=== PATIENT | female | born 1950 | race Hispanic/Latino ===

== ENCOUNTER 2018-05-04 07:18 | Day surgery (SDC) | payer OTHER ==
[2018-05-04] MEDS ORDERED: Ringers Lactate 1,000 ML IV ONE (07:40)
[2018-05-04] MEDS ORDERED: LIDOCAINE 2% INJ, MPF 2 ML 1 ML ONE (08:17)
[2018-05-04] MEDS ORDERED: PROPOFOL 200 MG/20 ML VIAL IV ONE ×2 (08:29)
--- NOTE | 2018-05-04 08:57 | ENDO RPT ---
[address], [address] COLONOSCOPY PROCEDURE REPORT EXAM DATE: 05/04/2018 PATIENT NAME: Estela Azul MR #: [id number] BIRTHDATE: 1950 ATTENDING: Fredis Meyer DR STATUS: outpatient CRYPTOGRAPHER: Dalila Camargo RN and [facility] INDICATIONS: The patient is a 67 yr old Female here for a colonoscopy due to colon cancer screening PROCEDURE PERFORMED: Colonoscopy with biopsy - cold polypectomy MEDICATIONS: Per Anesthesia. ESTIMATED BLOOD LOSS: None CONSENT: The patient understands the risks and benefits of the procedure and understands that these risks include, but are not limited to: sedation, allergic reaction, infection, perforation and/or bleeding. Alternative means of evaluation and treatment include, among others: physical exam, x-rays, and/or surgical intervention. The patient elects to proceed with this endoscopic procedure. DESCRIPTION OF PROCEDURE: During intra-op preparation period all mechanical medical equipment was checked for proper function. Hand hygiene and appropriate measures for infection prevention was taken. Procedure, possible complications, alternatives including, but not limited to possibility of bleeding, perforation, tear, infection, sepsis, need for surgery, need for blood transfusion, were explained to the patient. After the risks, benefits and alternatives of the procedure were thoroughly explained, Informed consent was verified, confirmed and timeout was successfully executed by the treatment team. The patient was placed in the left lateral position. A digital rectal exam was performed and revealed internal hemorrhoids. After appropriate level of anesthesia, the scope was passed. The EC-3890Li ([id number]) endoscope was introduced through the anus and advanced to the cecum, which was identified by both the appendix and ileocecal valve. The quality of the prep was poor. The instrument was then slowly withdrawn as the colon was fully examined. Scope withdrawal time was 10 minutes. COLON FINDINGS: A small smooth sessile polyp was found in the sigmoid colon. A polypectomy was performed with a cold snare. The resection was complete, the polyp tissue was completely retrieved and sent to histology. Small internal hemorrhoids were found. Retroflexed views revealed no abnormalities. The scope was then completely withdrawn from the patient and the procedure terminated. ADVERSE EVENTS: There were no complications. IMPRESSIONS: 1. Small sessile polyp was found in the sigmoid colon; polypectomy was performed with a cold snare 2. Small internal hemorrhoids RECOMMENDATIONS: 1. avoid NSAIDS for 2 weeks 2. await biopsy results 3. fiber rich diet 4. follow-up: office 2 week(s) RECALL: Return in 3 year(s) for Colonoscopy, pending biopsy results. Poor Prep, next colonoscopy use a [address] DR eSigned: Fredis Meyer DR 05/04/2018 8:57 AM cc: CPT CODES: ICD9 CODES: PATIENT NAME: Estela Azul MR#: [id number]
--- NOTE | 2018-05-04 08:58 | ENDO RPT ---
[address], [address] COLONOSCOPY PROCEDURE REPORT EXAM DATE: 05/04/2018 PATIENT NAME: Estela Azul MR #: [id number] BIRTHDATE: 1950 ATTENDING: Fredis Meyer DR STATUS: outpatient CLINICAL TRAINER: Dalila Camargo RN and [facility] INDICATIONS: The patient is a 67 yr old Female here for a colonoscopy due to colon cancer screening PROCEDURE PERFORMED: Colonoscopy with biopsy - cold polypectomy MEDICATIONS: Per Anesthesia. ESTIMATED BLOOD LOSS: None CONSENT: The patient understands the risks and benefits of the procedure and understands that these risks include, but are not limited to: sedation, allergic reaction, infection, perforation and/or bleeding. Alternative means of evaluation and treatment include, among others: physical exam, x-rays, and/or surgical intervention. The patient elects to proceed with this endoscopic procedure. DESCRIPTION OF PROCEDURE: During intra-op preparation period all mechanical medical equipment was checked for proper function. Hand hygiene and appropriate measures for infection prevention was taken. Procedure, possible complications, alternatives including, but not limited to possibility of bleeding, perforation, tear, infection, sepsis, need for surgery, need for blood transfusion, were explained to the patient. After the risks, benefits and alternatives of the procedure were thoroughly explained, Informed consent was verified, confirmed and timeout was successfully executed by the treatment team. The patient was placed in the left lateral position. A digital rectal exam was performed and revealed internal hemorrhoids. After appropriate level of anesthesia, the scope was passed. The EC-[id number] ([id number]) endoscope was introduced through the anus and advanced to the cecum, which was identified by both the appendix and ileocecal valve. The quality of the prep was poor. The instrument was then slowly withdrawn as the colon was fully examined. Scope withdrawal time was 10 minutes. COLON FINDINGS: A small smooth sessile polyp was found in the sigmoid colon. A polypectomy was performed with a cold snare. The resection was complete, the polyp tissue was completely retrieved and sent to histology. Small internal hemorrhoids were found. Retroflexed views revealed no abnormalities. The scope was then completely withdrawn from the patient and the procedure terminated. ADVERSE EVENTS: There were no complications. IMPRESSIONS: 1. Small sessile polyp was found in the sigmoid colon; polypectomy was performed with a cold snare 2. Small internal hemorrhoids RECOMMENDATIONS: 1. avoid NSAIDS for 2 weeks 2. await biopsy results 3. fiber rich diet 4. follow-up: office 2 week(s) RECALL: Return in 3 year(s) for Colonoscopy, pending biopsy results. Poor Prep, next colonoscopy use a [address] prep [address] DR eSigned: Fredis Meyer DR 05/04/2018 8:57 AM cc: CPT CODES: ICD9 CODES: PATIENT NAME: Estela Azul MR#: [id number]
== END 2018-05-04 09:40 | disposition home or self-care (01) ==
LOC: OR 07:18
PROVIDERS: ATTEND Surgery
PROC: 0DBN8ZX Excision of Sigmoid Colon, Via Natural or Artificial Opening Endoscopic, Diagnostic (ICD-10-PCS; principal; 2018-05-04 08:30)
DX: Z12.11 Encounter for screening for malignant neoplasm of colon (principal); D12.5 Benign neoplasm of sigmoid colon; K64.8 Other hemorrhoids; Z79.82 Long term (current) use of aspirin
CPT/HCPCS: 45380; 88305; J3490

== ENCOUNTER 2023-05-20 19:51 | Inpatient (IN) | payer OTHER ==
--- OUTSIDE RECORDS SUMMARY | 2023-05-20 20:01 | XMS REPORT | Continuity of Care Document ---
:1950 [facility] t Address [address] [place] [address] [place] [id number] Care Team Providers Name Role Phone Rosalina Georges Primary Care Physician BOBBY CORRAELS Attending Clinician Unavailable L_Bam Attending Clinician Unavailable Doctor Unassigned, [place] Attending Clinician Unavailable CURTIS MENDEZ Attending Clinician Unavailable Curtis Mendez MD Attending Clinician MICHAEL BARRIGA Attending Clinician Unavailable CHRZAYNAB_Herminia Attending Clinician Unavailable GLADYS Attending Clinician Unavailable Nidia Allison Attending Clinician [phone] REN Attending Clinician Unavailable Michael Tavares Attending Clinician [phone] Nick Robison Attending Clinician Felisa Sampson Attending Clinician [phone] NICK BOYD Attending Clinician Unavailable Bobby Corrales MD Attending Clinician Only, Adc Test Attending Clinician Unavailable Pob, [facility] Main Attending Clinician Unavailable BOBBY CORRALES Admitting Clinician Unavailable L_Bam Admitting Clinician Unavailable CHRETIEN_F Admitting Clinician Unavailable GLADYS Admitting Clinician Unavailable REN Admitting Clinician Unavailable Bobby Corrales MD Admitting Clinician Payers Payer Name Policy Type Policy Number Effective Date Expiration Date S [facility] MEDICARE PART A \\T\\ [id number] 2017 B 00:00:00 [employer]ESH [id number] 2019 00:00:00 [employer]ET[employer] (MEDICARE [id number] 2022 REPLACEMENT PPO) 00:00:00 [employer] [place] [id number] 2022 2022 (MEDICARE 00:00:00 00:00:00 REPLACEMENT/ADVANTA GE - HMO) [place] B-[place]: [id number] 2017 [employer] 00:00:00 [employer]IGNESH [id number] 2021 (MEDICARE 00:00:00 SUPPLEMENT) [employer] (MEDICARE [id number] REPLACEMENT/ADVANTA GE - PPO) MEDIC[place] A-[place]: [id number] 2017 [employer] - 00:00:00 [facility] MEDICARE A-[place]: [id number] 2017 [employer] 00:00:00 M[employer] OF JIGNESH [id number] 2019 00:00:00 Problems Condition Condition Condition Status Onset Resolution Last Treating Co mments Source Name Details Category Date Date Treatment Clinician Date Osteopenia Osteopenia Problem Active [facility] Dysuria Dysuria Problem Active [place] 3-13 [facility] 00:[facility]: ty [facility] Increased Increased Problem Active [place] frequency Frequency 3-13 Comm uni of of 00:00: ty urination Urination 00 [facility] Acute Acute Problem Active 2021-09 [place] sinusitis Sinusitis 1-15 Comm uni 00:00: ty [facility] Headache Headache Problem Active 2021-09 [place] 1-15 [facility] 00:[facility]: ty [facility] Pain in Pain in Problem Active 2021-09 [place] face Face 1-15 Communi 00:00: ty [facility] Otalgia of Otalgia of Problem Active 2021-09 [facility] left ear Left Ear 1-15 Commun i 00:00: ty [facility] Non-suppur Non-suppur Problem Active 2021-09 [facility] ative ative 0-05 Communi otitis Otitis 00:00: ty media Media 00 [facility] Allergic Allergic Problem Active 2021-09 [place] rhinitis Rhinitis 0-05 Commun i 00:00: ty 00 [facility] Chronic Chronic Problem Active 2021-09 [place] low back Low Back 0-05 Commun i pain Pain 00:00: ty 00 [facility] Low back Low Back Problem Active 2021-09 [place] pain Pain 0-05 Communi 00:00: ty 00 [facility] Pain in Pain in Problem Active 2021-09 [place] right hip Right Hip 0-05 Comm uni joint Joint 00:00: ty 00 [facility] Otitis Otitis Problem Active 2021-09 [place] externa of Externa of 0-05 Co mmuni right ear Right Ear 00:00: ty 00 [facility] Streptococ Streptococ Problem Active [facility] billy sore billy Sore 06-04 Commun i throat Throat 00:00: ty 00 [facility] History of History of Problem Active [facility] [place] SARS-CoV-2 SARS-CoV-2 06-04 Co mmuni 00:00: ty 00 [facility] Mixed Mixed Problem Active 2018-09 [place] hyperlipid Hyperlipid 1-13 Co mmuni emia emia 00:00: ty 00 [facility] Arthralgia Arthralgia Problem Active [facility] of the of the -22 Communi upper arm Upper Arm 00:00: ty 00 [facility] Pain of Pain of Problem Active [place] right Right 2-22 Communi shoulder Shoulder 00:00: ty joint Joint 00 [facility] STROKE STROKE Diagnosis Active 2012-10-07 Me moria Active 09-13 13:28:00 l 09/13/2012 00:00: Nikunj bee [address] CVA CVA Diagnosis Active 2012-10-07 Mem oria Active 13:28:00 l [facility] No known No known Disease Unive rs active active ity of problems problems [facility] Allergies, Adverse Reactions, Alerts Allergy Allergy Status Severity Reaction(s) Onset Inactive Treating Comm ents Source Name Type Date Date Clinician NO KNOWN Drug Active Univers ALLERGIE Class ity of S [facility] Social History Social Habit Start Date Stop Date Quantity Comments Source [facility] Branch Tobacco use and 2020-06-03 2020-06-03 Smokeless tobacco Un iversity of exposure 00:00:00 00:00:00 non-user [facility] Sex Assigned At [birth year] Universit y of 00:00:00 00:00:00 [facility] Smoking Status Start Date Stop Date Source Unknown if ever smoked [facility] Never smoked tobacco [facility] Medications Ordered Filled Start Stop Current Ordering Indication Dosage Frequency Signature Comments Components Source Medication Medication Date Date Medication? Clinician (SIG) Name Name methylPREDN 2020- No [id number] 80mg U brendan ISolone 02-19 ity of acetate 15:20: 15:36 [place] (DEPO-MEDRO 00 :00 Medical L) 80 mg/mL Branch 80 mg, lidocaine 1% (PF) (XYLOCAINE) 6 mL, bupivacaine (preserv free) 0.5% (SENSORCAIN E MPF) 0.5 % (5 mg/mL) 3 mL 10 mL injection methylPREDN 0 2020- No [id number] 80mg Intra-deandra Univers ISolone 02-19 cular, ity of acetate 15:20: 15:36 ONCE, 1 [place] (DEPO-MEDRO 00 :00 dose, Wed Med ical L) 80 mg/mL 02/19/21 at Br anch 80 mg, 1030, 10 lidocaine mL 1% (PF) (XYLOCAINE) 6 mL, bupivacaine (preserv free) 0.5% (SENSORCAIN E MPF) 0.5 % (5 mg/mL) 3 mL 10 mL injection methylPREDN 0 2020- No [id number] 80mg U nivers ISolone 02-19 ity of acetate 15:20: 15:36 [place] (DEPO-MEDRO 00 :00 Medical L) 80 mg/mL Branch 80 mg, lidocaine 1% (PF) (XYLOCAINE) 6 mL, bupivacaine (preserv free) 0.5% (SENSORCAIN E MPF) 0.5 % (5 mg/mL) 3 mL 10 mL injection methylPREDN 2020-0 202- No [id number] 80mg Intra-deandra Univers ISolone 02-19 cular, ity of acetate 15:20: 15:36 ONCE, 1 [place] (DEPO-MEDRO 00 :00 dose, Wed Med ical L) 80 mg/mL 02/19/21 at Br anch 80 mg, 1030, 10 lidocaine mL 1% (PF) (XYLOCAINE) 6 mL, bupivacaine (preserv free) 0.5% (SENSORCAIN E MPF) 0.5 % (5 mg/mL) 3 mL 10 mL injection methylPREDN 2021-0 2020- No [id number] 80mg Univers [facility] 12-25 ity of acetate 20:30: 21:20 [place] (DEPO-MEDRO 00 :00 Medical L) 80 mg/mL Branch 80 mg, lidocaine 1% (PF) (XYLOCAINE) 6 mL, bupivacaine (preserv free) 0.5% (SENSORCAIN E MPF) 0.5 % (5 mg/mL) 3 mL 10 mL injection methylPREDN 1-0 2020- No [id number] 80mg [facility] 12-25 91 cular, ity of acetate 20:30: 21:20 ONCE, 1 [place] (DEPO-MEDRO 00 :00 dose, Wed Med ical L) 80 mg/mL 12/25/20 at Br anch 80 mg, 1545, 10 lidocaine mL 1% (PF) (XYLOCAINE) 6 mL, bupivacaine (preserv free) 0.5% (SENSORCAIN E MPF) 0.5 % (5 mg/mL) 3 mL 10 mL injection methylPREDN 1-0 2020- No [id number] 80mg [facility] 12-25 ity of acetate 20:30: 21:20 [place] (DEPO-MEDRO 00 :00 Medical L) 80 mg/mL Branch 80 mg, lidocaine 1% (PF) (XYLOCAINE) 6 mL, bupivacaine (preserv free) 0.5% (SENSORCAIN E MPF) 0.5 % (5 mg/mL) 3 mL 10 mL injection methylPREDN 2021-0 2020- No [id number] 80mg [facility] 9100 cular, ity of acetate 20:30: 21:20 ONCE, 1 [place] (DEPO-MEDRO 00 :00 dose, Wed Med ical L) 80 mg/mL 12/25/20 at Br anch 80 mg, 1545, 10 lidocaine mL 1% (PF) (XYLOCAINE) 6 mL, bupivacaine (preserv free) 0.5% (SENSORCAIN E MPF) 0.5 % (5 mg/mL) 3 mL 10 mL injection atorvastati Yes 10mg Take 10 mg Univers n 10 mg 4-21 by mouth ity of tablet 19:23: at [place] [address] bedtime. Medical Branch atorvastati Yes 10mg Take 10 mg Univers n 10 mg 4-21 by mouth ity of tablet 19:23: at [place] [address] bedtime. Medical Branch atorvastati Yes 10mg Take 10 mg Univers n 10 mg 4-21 by mouth ity of tablet 19:23: at [place] [address] bedtime. Medical Branch atorvastati Yes 10mg Take 10 mg Univers n 10 mg 4-21 by mouth ity of tablet 19:23: at [place] [address] bedtime. Medical Branch atorvastati Yes 10mg Take 10 mg Univers n 10 mg 4-21 by mouth ity of tablet 19:23: at [place] [address] bedtime. Medical Branch atorvastati Yes 10mg Take 10 mg Univers n 10 mg 4-21 by mouth ity of tablet 19:23: at [place] [address] bedtime. Medical Branch atorvastati Yes 10mg Take 10 mg Univers n 10 mg 4-21 by mouth ity of tablet 19:23: at [place] [address] bedtime. Medical Branch atorvastati Yes 10mg Take 10 mg Univers n 10 mg 4-21 by mouth ity of tablet 19:23: at [place] [address] bedtime. Medical Branch atorvastati Yes 10mg Take 10 mg Univers n 10 mg 4-21 by mouth ity of tablet 19:23: at [place] [address] bedtime. Medical Branch atorvastati Yes 10mg Take 10 mg Univers n 10 mg 4-21 by mouth ity of tablet 19:23: at [place] [address] bedtime. Medical Branch atorvastati Yes 10mg Take 10 mg Univers n 10 mg 4-21 by mouth ity of tablet 19:23: at [place] [address] bedtime. Medical Branch atorvastati 0 Yes 10mg Take 10 mg Univers n 10 mg 4-21 by mouth ity of tablet 19:23: at [place] [address] bedtime. Medical Branch atorvastati 0 Yes 10mg Take 10 mg Univers n 10 mg 4-21 by mouth ity of tablet 19:23: at [place] [address] bedtime. Medical Branch atorvastati 0 Yes 10mg Take 10 mg Univers n 10 mg 4-21 by mouth ity of tablet 19:23: at [place] [address] bedtime. Medical Branch atorvastati Yes 10mg Take 10 mg Univers n 10 mg 4-21 by mouth ity of tablet 14:23: at [place] [address] bedtime. Medical Branch atorvastati Yes 10mg Take 10 mg Univers n 10 mg 4-21 by mouth ity of tablet 14:23: at [place] [address] bedtime. Medical Branch atorvastati Yes 10mg Take 10 mg Univers n 10 mg 4-21 by mouth ity of tablet 14:23: at [place] [address] bedtime. Medical Branch atorvastati Yes 10mg Take 10 mg Univers n 10 mg 4-21 by mouth ity of tablet 14:23: at [place] [address] bedtime. Medical Branch atorvastati Yes 10mg Take 10 mg Univers n 10 mg 4-21 by mouth ity of tablet 14:23: at [place] [address] bedtime. Medical Branch naproxen 0 Yes [id number] 500mg Take 1 U nivers (NAPROSYN) 4-20 tablet by ity of 500 mg 00:00: mouth 2 [place] tablet 00 (two) Medical times Branch daily with meals as needed for Pain (scale 4-6). tiZANidine 0 Yes [id number] 2mg Take 1 Univers 2 mg tablet 4-20 tablet by ity of 00:00: mouth at [place] [address] bedtime as Medical needed for Branch Pain (scale 4-6). naproxen 0 Yes [id number] 500mg Take 1 U nivers (NAPROSYN) 4-20 tablet by ity of 500 mg 00:00: mouth 2 [place] tablet 00 (two) Medical times Branch daily with meals as needed for Pain (scale 4-6). tiZANidine 2021-0 Yes [id number] 2mg Take 1 Univers 2 mg tablet 4-20 tablet by ity of 00:00: mouth at [place] 00 bedtime as Medical needed for Branch Pain (scale 4-6). naproxen 2021-0 Yes [id number] 500mg Take 1 U nivers (NAPROSYN) 4-20 tablet by ity of 500 mg 00:00: mouth 2 [place] tablet 00 (two) Medical times Branch daily with meals as needed for Pain (scale 4-6). tiZANidine 2020-0 Yes [id number] 2mg Take 1 Univers 2 mg tablet 4-20 tablet by ity of 00:00: mouth at [place] 00 bedtime as Medical needed for Branch Pain (scale 4-6). naproxen 2020-0 Yes [id number] 500mg Take 1 U nivers (NAPROSYN) 4-20 tablet by ity of 500 mg 00:00: mouth 2 [place] tablet 00 (two) Medical times Branch daily with meals as needed for Pain (scale 4-6). tiZANidine 2020-0 Yes [id number] 2mg Take 1 Univers 2 mg tablet 4-20 tablet by ity of 00:00: mouth at [place] 00 bedtime as Medical needed for Branch Pain (scale 4-6). naproxen 2020-0 Yes [id number] 500mg Take 1 U nivers (NAPROSYN) 4-20 tablet by ity of 500 mg 00:00: mouth 2 [place] tablet 00 (two) Medical times Branch daily with meals as needed for Pain (scale 4-6). tiZANidine 2020-0 Yes [id number] 2mg Take 1 Univers 2 mg tablet 4-20 tablet by ity of 00:00: mouth at [place] 00 bedtime as Medical needed for Branch Pain (scale 4-6). naproxen 2021-0 Yes [id number] 500mg Take 1 U nivers (NAPROSYN) 4-20 tablet by ity of 500 mg 00:00: mouth 2 [place] tablet 00 (two) Medical times Branch daily with meals as needed for Pain (scale 4-6). tiZANidine 2021-0 Yes [id number] 2mg Take 1 Univers 2 mg tablet 4-20 tablet by ity of 00:00: mouth at [place] 00 bedtime as Medical needed for Branch Pain (scale 4-6). naproxen 2020-0 Yes [id number] 500mg Take 1 U nivers (NAPROSYN) 4-20 tablet by ity of 500 mg 00:00: mouth 2 [place] tablet 00 (two) Medical times Branch daily with meals as needed for Pain (scale 4-6). tiZANidine 2020-0 Yes [id number] 2mg Take 1 Univers 2 mg tablet 4-20 tablet by ity of 00:00: mouth at [place] 00 bedtime as Medical needed for Branch Pain (scale 4-6). naproxen 2020-0 Yes [id number] 500mg Take 1 U nivers (NAPROSYN) 4-20 tablet by ity of 500 mg 00:00: mouth 2 [place] tablet 00 (two) Medical times Branch daily with meals as needed for Pain (scale 4-6). tiZANidine 2020-0 Yes [id number] 2mg Take 1 Univers 2 mg tablet 4-20 tablet by ity of 00:00: mouth at [place] 00 bedtime as Medical needed for Branch Pain (scale 4-6). naproxen 2020-0 Yes [id number] 500mg Take 1 U nivers (NAPROSYN) 4-20 tablet by ity of 500 mg 00:00: mouth 2 [place] tablet 00 (two) Medical times Branch daily with meals as needed for Pain (scale 4-6). tiZANidine 2020-0 Yes [id number] 2mg Take 1 Univers 2 mg tablet 4-20 tablet by ity of 00:00: mouth at [place] 00 bedtime as Medical needed for Branch Pain (scale 4-6). naproxen 2020-0 Yes [id number] 500mg Take 1 U nivers (NAPROSYN) 4-20 tablet by ity of 500 mg 00:00: mouth 2 [place] tablet 00 (two) Medical times Branch daily with meals as needed for Pain (scale 4-6). tiZANidine 2020-0 Yes [id number] 2mg Take 1 Univers 2 mg tablet 4-20 tablet by ity of 00:00: mouth at [place] 00 bedtime as Medical needed for Branch Pain (scale 4-6). naproxen 2020-0 Yes [id number] 500mg Take 1 U nivers (NAPROSYN) 4-20 tablet by ity of 500 mg 00:00: mouth 2 [place] tablet 00 (two) Medical times Branch daily with meals as needed for Pain (scale 4-6). tiZANidine 2020-0 Yes [id number] 2mg Take 1 Univers 2 mg tablet 4-20 tablet by ity of 00:00: mouth at [place] 00 bedtime as Medical needed for Branch Pain (scale 4-6). naproxen 2020-0 Yes [id number] 500mg Take 1 U nivers (NAPROSYN) 4-20 tablet by ity of 500 mg 00:00: mouth 2 [place] tablet 00 (two) Medical times Branch daily with meals as needed for Pain (scale 4-6). tiZANidine 2020-0 Yes [id number] 2mg Take 1 Univers 2 mg tablet 4-20 tablet by ity of 00:00: mouth at [place] 00 bedtime as Medical needed for Branch Pain (scale 4-6). naproxen 2020-0 Yes [id number] 500mg Take 1 U nivers (NAPROSYN) 4-20 tablet by ity of 500 mg 00:00: mouth 2 [place] tablet 00 (two) Medical times Branch daily with meals as needed for Pain (scale 4-6). tiZANidine 2020-0 Yes [id number] 2mg Take 1 Univers 2 mg tablet 4-20 tablet by ity of 00:00: mouth at [place] 00 bedtime as Medical needed for Branch Pain (scale 4-6). naproxen 2020-0 Yes [id number] 500mg Take 1 U nivers (NAPROSYN) 4-20 tablet by ity of 500 mg 00:00: mouth 2 [place] tablet 00 (two) Medical times Branch daily with meals as needed for Pain (scale 4-6). tiZANidine 2020-0 Yes [id number] 2mg Take 1 Univers 2 mg tablet 4-20 tablet by ity of 00:00: mouth at [place] 00 bedtime as Medical needed for Branch Pain (scale 4-6). naproxen 2020-0 Yes [id number] 500mg Take 1 U nivers (NAPROSYN) 4-20 tablet by ity of 500 mg 00:00: mouth 2 [place] tablet 00 (two) Medical times Branch daily with meals as needed for Pain (scale 4-6). tiZANidine 2020-0 Yes [id number] 2mg Take 1 Univers 2 mg tablet 4-20 tablet by ity of 00:00: mouth at [place] 00 bedtime as Medical needed for Branch Pain (scale 4-6). naproxen 202-0 Yes [id number] 500mg Take 1 U nivers (NAPROSYN) 4-20 tablet by ity of 500 mg 00:00: mouth 2 [place] tablet 00 (two) Medical times Branch daily with meals as needed for Pain (scale 4-6). tiZANidine 2020-0 Yes [id number] 2mg Take 1 Univers 2 mg tablet 4-20 tablet by ity of 00:00: mouth at [place] 00 bedtime as Medical needed for Branch Pain (scale 4-6). naproxen 2020-0 Yes [id number] 500mg Take 1 U nivers (NAPROSYN) 4-20 tablet by ity of 500 mg 00:00: mouth 2 [place] tablet 00 (two) Medical times Branch daily with meals as needed for Pain (scale 4-6). tiZANidine 2020-0 Yes [id number] 2mg Take 1 Univers 2 mg tablet 4-20 tablet by ity of 00:00: mouth at [place] 00 bedtime as Medical needed for Branch Pain (scale 4-6). naproxen 2020-0 Yes [id number] 500mg Take 1 U nivers (NAPROSYN) 4-20 tablet by ity of 500 mg 00:00: mouth 2 [place] tablet 00 (two) Medical times Branch daily with meals as needed for Pain (scale 4-6). tiZANidine 2020-0 Yes [id number] 2mg Take 1 Univers 2 mg tablet 4-20 tablet by ity of 00:00: mouth at [place] 00 bedtime as Medical needed for Branch Pain (scale 4-6). naproxen 2021-0 Yes [id number] 500mg Take 1 U nivers (NAPROSYN) 4-20 tablet by ity of 500 mg 00:00: mouth 2 [place] tablet 00 (two) Medical times Branch daily with meals as needed for Pain (scale 4-6). tiZANidine 2020-0 Yes [id number] 2mg Take 1 Univers 2 mg tablet 4-20 tablet by ity of 00:00: mouth at [place] 00 bedtime as Medical needed for Branch Pain (scale 4-6). atorvastati 2020-0 Yes 10mg Take 10 mg Univers n 10 mg 9-30 by mouth ity of tablet 20:27: at [place] 44 bedtime. Medical Branch atorvastati 2020-0 Yes 10mg Take 10 mg Univers n 10 mg 9-30 by mouth ity of tablet 20:27: at [place] 44 bedtime. Medical Branch lactated 2020-0 Yes 1000mL at 42 Univer s ringers IV 9-30 mL/hr, ity of infusion 20:00: 1,000 mL, [place] 1,000 [place] 00 IV Medical Infusion, Branch CONTINUOUS , Starting Wed06/05/20 at 1500, Until Discontinu ed, Routine, PACU ondansetron 2020-0 Yes 4mg 4 mg, Slow Univers (ZOFRAN 9-30 IV Push, ity of (PF)) 19:48: PRN, 1 [place] injection 4 25 dose, Medical mg Starting Branch Wed06/05/20 at 1448, Until Discontinu ed, Routine, Nausea and Vomiting (N/V), PACU FENTanyl PF 2020-0 Yes 25ug 25 mcg, Uni vers (SUBLIMAZE 9-30 Slow IV ity of (PF)) 19:48: Push, [place] injection 25 Q5MIN PRN, Medi billy 25 mcg 4 doses, Branch Starting Wed06/05/20 at 1448, Until Discontinu ed, Routine, Pain (scale 4-6), PACU trypan blue 2020-0 Yes PRN, Univer s (VISION -30 Starting ity of BLUE) 0.06 19:36: Wed [place] % syringe 00 06/05/20 at Medi billy 1436, Branch Until Discontinu ed, Routine, Intra-op water for 2020-0 Yes PRN, Univers irrigation -30 Starting ity o f irrigation 19:36: Wed [place] solution 06/05/20 at Medic al 1436, Branch Until Discontinu ed, Routine, Intra-op sodium 2020-0 Yes PRN, Univers chloride -30 Starting ity of (NS) 19:35: Wed [place] injection 00 06/05/20 at Medi billy 1435, Branch Until Discontinu ed, Routine, Intra-op neomycin-po 2020-0 Yes PRN, Univer s lymyxin-dex 9-30 Starting ity of amethasone 19:35: Wed (MAXITROL) 06/05/20 at [facility] ical 3.5 1435, Branch mg/g-10,000 Until unit/g-0.1 Discontinu % ed, ophthalmic Routine, ointment Intra-op Hyaluronida 2020-0 Yes PRN, Univer s se, Human 06-05 Starting ity of Recomb. 19:35: Wed (HYLENEX) 06/05/20 at [facility] billy injection 1435, Branch Until Discontinu ed, Routine, Intra-op gentamicin 2020-0 Yes PRN, Univers injection 06-05 Starting ity of 19:33: Wed06/05/20 at [facility] 1433, Branch Until Discontinu ed, GLADYS, Intra-op eye block 2019-0 Yes PRN, Univers syringe 11 06-05 Starting ity o f mL 19:32: Wed06/05/20 at [facility] 1432, Branch Until Discontinu ed, Intra-op EPINEPHrine 2020-0 Yes PRN, Univer s 1:1,000 (1 06-05 Starting ity o f mg/mL) 19:32: Wed (ADRENALIN) 06/05/20 at [place] dical injection 1432, Branch Until Discontinu ed, Routine, Intra-op DUOVISC 2020-0 Yes PRN, Univers (DUOVISC 06-05 Starting ity of VISCO 19:32: Wed ELASTIC) 3 06/05/20 at [facility] ical %-4 %(0.5 1432, Branch mL) 1 % Until (0.55 mL) Discontinu intraocular ed, injection Routine, Intra-op dexamethaso 2020-0 Yes PRN, Univer s ne 06-05 Starting ity of (DECADRON 19:32: Wed PHOSPHATE) 06/05/20 at [facility] ical injection 1432, Branch Until Discontinu ed, Routine, Intra-op ceFAZolin 2020-0 Yes PRN, Univers (ANCEF) 06-05 Starting ity of injection 19:26: Wed [place] 06/05/20 at [facility] 1426, Branch Until Discontinu ed, GLADYS, Intra-op carbachoL 2020-0 Yes PRN, Univers (MIOSTAT) 06-05 Starting ity of 0.01 % 19:26: Wed [place] intraocular 00 06/05/20 at [facility] dical injection 1426, Branch Until Discontinu ed, Routine, Intra-op balanced 2019-0 Yes PRN, Univers salt irrig 06-05 Starting ity o f soln comb1 19:26: [facility] (BSS PLUS) 00 06/05/20 at [facility] ical ophthalmic 1426, Center solution Until 500 mL bag Discontinu ed, Routine, Intra-op mydriatic 2020- No .5mL 0.5 mL, Univ ers #5 06-05 Right Eye, ity of ophthalmic 18:00: 17:34 ONCE, 1 [place] as solution 00 :00 dose, [facility] Medica l 0.5 mL 06/05/20 at Center syringe 1300, Routine, DSU Pre-op atorvastati Yes 10mg Take 10 mg Univers n 10 mg 06-03 by mouth ity of tablet 13:42: at [place] 58 bedtime. [facility] Fish Oil No Jie 1,000 mg, Wy moria 1-10 Saqui 1 cap, l 15:00: Gaming Route: PO, Olivia nn Drug form: CAP, Daily, Dosing Weight 58.636, kg, Start date: 09/15/12 9:00:00, Duration: 30 day, Stop date: 10/14/12 9:00:00 aspirin No Jie 81 mg, 1 Yovany radha 1-10 Saqui tab, l 15:00: Gaming Route: PO, Olivia nn Drug form: [place], Daily, Dosing Weight 58.636, kg, Start date: 09/15/12 9:00:00, Duration: 30 day, Stop date: 10/14/12 9:00:00 Fish Oil No Jie 1,000 mg, Me moria 1-10 Saqui 1 cap, l 15:00: Gaming Route: PO, Olivia nn Drug form: CAP, Daily, Dosing Weight 58.636, kg, Start date: 09/15/12 9:00:00, Duration: 30 day, Stop date: 10/14/12 9:00:00 aspirin No Jie 81 mg, 1 Yovany radha 1-10 Sa[place] tab, l 15:00: Gaming Route: PO, Olivia nn 00 Drug form: CHE[place], Daily, Dosing Weight 58.636, kg, Start date: 09/15/12 9:00:00, Duration: 30 day, Stop date: 10/14/12 9:00:00 calcium-vit 2012-0 No Jie 2 tab, Me moria ingram D 250 09-14 Saqui Route: PO, l mg-125 23:00: Gaming Drug Form: Her dow units oral 00 TAB, tablet Dosing Weight 58.636, kg, BID, Start date: 09/14/12 17:00:00, Duration: 30 day, Stop date: 10/14/12 9:00:00 calcium-vit 2012-0 No Jie 2 tab, Me moria ingram D 250 09-14 Saqui Route: PO, l mg-125 23:00: Gaming Drug Form: Her dow units oral 00 TAB, tablet Dosing Weight 58.636, kg, BID, Start date: 09/14/12 17:00:00, Duration: 30 day, Stop date: 10/14/12 9:00:00 acyclovir 0 No [place] 400 mg, 1 Memoria 09-14 Masters tab, l 20:00: [place] Route: PO, Olivia nn 00 Drug form: TAB, 5X Day, Dosing Weight 58.636, kg, Start date: 09/14/12 14:00:00, Duration: 7 day, Stop date: 09/21/12 10:00:00 acyclovir 0 No [place] 400 mg, 1 Memoria 09-14 Masters tab, l 20:00: [place] Route: PO, Olivia nn 00 Drug form: TAB, 5X Day, Dosing Weight 58.636, kg, Start date: 09/14/12 14:00:00, Duration: 7 day, Stop date: 09/21/12 10:00:00 acyclovir 0 No Jie 200 mg, Mem oria 09-14 Saqui Route: PO, l 19:00: Gaming TID, [employer] 00 Dosing Weight 58.636, kg, Start date: 09/14/12 13:00:00, Duration: 30 day, Stop date: 10/14/12 9:00:00 heparin 2012-0 No Santos 5,000 Memori a 09-14 [facility] unit, 1 l 19:00: Chah[place] mL, Route: [place] nn 00 SUB-Q, Drug form: INJ, Q8H-05, Dosing Weight 58.636, kg, Start date: 09/14/12 13:00:00, Duration: 30 day, Stop date: 10/14/12 5:00:00 cephalexin 0 No Jie 500 mg, 2 Memoria 09-14 Saqui cap, l 19:00: Gaming Route: PO, [place] nn 00 Drug form: CAP, QID, Dosing Weight 58.636, kg, Start date: 09/14/12 13:00:00, Duration: 30 day, Stop date: 10/14/12 9:00:00 heparin 2012-0 No Santos 5,000 [facility] a - [facility] unit, 1 l 19:00: Chahil mL, Route: Olivia nn 00 SUB-Q, Drug form: INJ, Q8H-05, Dosing Weight 58.636, kg, Start date: 09/14/12 13:00:00, Duration: 30 day, Stop date: 10/14/12 5:00:00 cephalexin 0 No Jie 500 mg, 2 Memoria 09-14 Saqui cap, l 19:00: Gaming Route: PO, Olivia nn 00 Drug form: CAP, QID, Dosing Weight 58.636, kg, Start date: 09/14/12 13:00:00, Duration: 30 day, Stop date: 10/14/12 9:00:00 acyclovir 0 No Jie 200 mg, Mem oria 09-14 Saqui Route: PO, l 19:00: Gaming TID, Neftaly 00 Dosing Weight 58.636, kg, Start date: 09/14/12 13:00:00, Duration: 30 day, Stop date: 10/14/12 9:00:00 predniSONE 2012-0 No Jie 60 mg, 3 M emoria 09-14 Saqui tab, l 18:00: Gaming Route: PO, Olivia nn 00 Drug form: TAB, Daily, Dosing Weight 58.636, kg, Start date: 09/14/12 12:00:00, Duration: 30 day, Stop date: 10/14/12 9:00:00 predniSONE 2012- No Jie 60 mg, 3 M emoria 09-14 Saqui tab, l 18:00: Gaming Route: PO, Olivia nn 00 Drug form: TAB, Daily, Dosing Weight 58.636, kg, Start date: 09/14/12 12:00:00, Duration: 30 day, Stop date: 10/14/12 9:00:00 predniSONE 2012- Yes Jie 60 mg, PO, Memoria 20 mg oral 09-14 Saqui Daily, 15 l tablet 17:32: Gaming tab, Neftaly 29 Substituti on Allowed, TAB predniSONE Yes Jie 60 mg, PO, Memoria 20 mg oral 09-14 Saqui Daily, 15 l tablet 17:32: Gaming tab, [employer] 29 Substituti on Allowed, TAB acyclovir Yes Jie 400 mg, Mem oria 400 mg oral 09-14 Saqui PO, 5X l tablet 17:31: Gaming Day, 35 Nikunj n 33 tab, Substituti on Allowed, TAB acyclovir Yes Jie 400 mg, Mem oria 400 mg oral 09-14 Saqui PO, 5X l tablet 17:31: Gaming Day, 35 Nikunj n 33 tab, Substituti on Allowed, TAB Artificial No Jie 1 drp, Mem oria Tears 09-14 Saqui Route: l 16:17: Gaming Each [employer] 00 Affected Eye, QID, Drug form: SOLN, PRN Dry Eyes, Start date: 09/14/12 10:17:00, Duration: 30 day, Stop date: 10/14/12 10:16:00 Artificial 2012-0 No Jie 1 drp, Mem oria Tears 09-14 Saqui Route: l 16:17: Gaming Each [employer] 00 Affected Eye, QID, Drug form: SOLN, PRN Dry Eyes, Start date: 09/14/12 10:17:00, Duration: 30 day, Stop date: 10/14/12 10:16:00 cephalexin 2012- Yes Jie 500 mg, 1 Memoria monohydrate 09-14 Saqui cap, PO, l 500 mg oral 07:55: Gaming QID, 20 H ermann capsule 00 cap, Substituti on Allowed cephalexin Yes Jie 500 mg, 1 Memoria monohydrate 09-14 Saqui cap, PO, l 500 mg oral 07:55: Gaming QID, 20 H ermann capsule 00 cap, Substituti on Allowed calcium-vit Yes Jie See Yovany radha ingram D 500 09-14 Saqui Instructio l mg-125 07:54: Gaming ns, 1 tab Herm darling units oral 06 daily, tablet Substituti on Allowed, Maintenanc e, TAB1 tab daily calcium-vit Yes Jie See Yovany radha ingram D 500 09-14 Saqui Instructio l mg-125 07:54: Gaming ns, 1 tab Herm darling units oral 06 daily, tablet Substituti on Allowed, Maintenanc e, TAB1 tab daily Aspirin Low Yes Jie PO, Daily, Memoria Dose 81 mg 09-14 Saqui with food, l oral tablet 07:50: Gaming Substituti Neftaly 54 on Allowedwit h food Aspirin Low Yes Jie PO, Daily, Memoria Dose 81 mg 09-14 Saqui with food, l oral tablet 07:50: Gaming Substituti Neftaly 54 on Allowedwit h food omega-3 Yes Jie 1,000 mg, Mem oria polyunsatur 09-14 Saqui 1 cap, l ated fatty 07:50: Gaming Daily, Her dow acids 1000 15 Substituti mg oral on Allowed capsule omega-3 Yes Jie 1,000 mg, Mem oria polyunsatur 09-14 Saqui 1 cap, l ated fatty 07:50: Gaming Daily, Her dow acids 1000 15 Substituti mg oral on Allowed capsule [place] No Lindy Castrejon 1 tab, Yovany radha 7.5/325 09-14 Kala Route: PO, l oral tablet 07:12: Drug Form: Neftaly 00 TAB, Dosing Weight 58.636, kg, ONCE, NOW, Start date: 09/14/12 1:12:00, Stop date: 09/14/12 1:12:00 [place] No Lindy Castrejon 1 tab, Yovany radha 7.5/325 09-14 Kala Route: PO, l oral tablet 07:12: Drug Form: Neftaly 00 TAB, Dosing Weight 58.636, kg, ONCE, NOW, Start date: 09/14/12 1:12:00, Stop date: 09/14/12 1:12:00 Saline 2012-0 No Gallagher 5 ml, Memoria Flush 0.9% 09-14 William Route: l 03:00: Abrams IVP, Drug Herm darling 00 Form: INJ, Dosing Weight 58.182, kg, Q12H, Start date: 09/13/12 21:00:00, Duration: 30 day, Stop date: 10/13/12 9:00:00 Saline 2012-0 No Gallagher 5 ml, Memoria Flush 0.9% 09-14 William Route: l 03:00: Abrams IVP, Drug Herm darling 00 Form: INJ, Dosing Weight 58.182, kg, Q12H, Start date: 09/13/12 21:00:00, Duration: 30 day, Stop date: 10/13/12 9:00:00 morphine 2012-0 No Jina 2 mg, 1 Me moria Sulfate 09-14 Fabiana mL, Route: l 00:39: Brown IVP, Drug [employer] 00 form: INJ, ONCE, Dosing Weight 58.182, kg, Start date: 09/13/12 18:39:00, Stop date: 09/13/12 18:39:00 morphine 2012-0 No Jina 2 mg, 1 Me moria Sulfate - Fabiana mL, Route: l 00:39: Brown IVP, Drug Neftaly 00 form: INJ, ONCE, Dosing Weight 58.182, kg, Start date: 09/13/12 18:39:00, Stop date: 09/13/12 18:39:00 Omnipaque 2013-0 No Jina 125 mL, M emoria 350mg/ml 09-14 Fabiana Route: l 00:37: Brown IVP, Drug [employer] 00 Form: SOLN, Dosing Weight 58.182, kg, ONCALL, STAT, Start date: 09/13/12 18:37:00, Duration: 1 doses or times, Dose = 2.2ml/kg, Max dose = 150ml -- "To be infused by Radiology Staff ONLY"Dose = 2.2ml/kg, Max dose = 150ml -- "To be infused by Radiology Staff ONLY" Omnipaque 2012-0 No Jina 125 mL, M emoria 350mg/ml 09-14 Fabiana Route: l 00:37: Brown IVP, Drug [employer] 00 Form: SOLN, Dosing Weight 58.182, kg, ONCALL, STAT, Start date: 09/13/12 18:37:00, Duration: 1 doses or times, Dose = 2.2ml/kg, Max dose = 150ml -- "To be infused by Radiology Staff ONLY"Dose = 2.2ml/kg, Max dose = 150ml -- "To be infused by Radiology Staff ONLY" ceftriaxone No Santos 1 gm, Wy moria 09-14 Guerrero Route: l 00:00: Chahil IVPB, Drug Olivia nn form: PDR/INJ, [id number], Dosing Weight 58.182, kg, Start date: 09/13/12 18:00:00, Duration: 30 day, Stop date: 10/12/12 18:00:00 ceftriaxone 2012-0 No Santos 1 gm, Wy moria 09-14 Guerrero Route: l 00:00: Chahil IVPB, Drug Olivia nn form: PDR/INJ, [id number], Dosing Weight 58.182, kg, Start date: 09/13/12 18:00:00, Duration: 30 day, Stop date: 10/12/12 18:00:00 cephalexin 2012-0 No Gallagher 500 mg, 1 M emoria 09-13 William cap, l 22:05: Abrams Route: PO, Her dow 00 Drug form: CAP, Q12H, Dosing Weight 58.182, kg, Priority: STAT, Start date: 09/13/12 16:05:00, Stop date: 10/13/12 9:00:00 cephalexin 2012-0 No Davide 500 mg, 1 M emoria 08 William cap, l 22:05: Abrams Route: PO, Her dow 00 Drug form: CAP, Q12H, Dosing Weight 58.182, kg, Priority: STAT, Start date: 09/13/12 16:05:00, Stop date: 10/13/12 9:00:00 Saline 2012-0 No Davide 5 ml, Memoria Flush 0.9% 09-13 William Route: l 21:18: Abrams IVP, Drug Herm darling 00 Form: INJ, Dosing Weight 58.182, kg, PRN, PRN Line Flush, Start date: 09/13/12 15:18:00, Duration: 30 day, Stop date: 10/13/12 15:17:00 labetalol 2012-0 No Davide 10 mg, 2 Mem oria -08 William mL, Route: l 21:18: Abrams IVP, Drug Herm darling 00 form: INJ, Q10Min, Dosing Weight 58.182, kg, PRN Hypertensi on, Start date: 09/13/12 15:18:00, Duration: 30 day, Stop date: 10/13/12 15:17:00, For SBP > 180mmHg and/or DBP > 105mmHg Sodium 2012-0 No Gallagher 1,000 mL, Memor ia Chloride 09-13 William Rate: 75 l 0.9% IV 21:18: Abrams ml/hr, Herm darling 1,000 mL 00 Infuse over: 13.3 hr, Route: IV, kg, Total Volume: 1,000, Start date: 09/13/12 15:18:00, Duration: 30 day, Stop date: 10/13/12 15:17:00 Saline 2012-0 No Davide 5 ml, Memoria Flush 0.9% 09-13 William Route: l 21:18: Abrams IVP, Drug Herm darling 00 Form: INJ, Dosing Weight 58.182, kg, PRN, PRN Line Flush, Start date: 09/13/12 15:18:00, Duration: 30 day, Stop date: 10/13/12 15:17:00 labetalol 2012-0 No Davide 10 mg, 2 Mem oria -08 William mL, Route: l 21:18: Abrams IVP, Drug Herm darling 00 form: INJ, Q10Min, Dosing Weight 58.182, kg, PRN Hypertensi on, Start date: 09/13/12 15:18:00, Duration: 30 day, Stop date: 10/13/12 15:17:00, For SBP > 180mmHg and/or DBP > 105mmHg Sodium 2012-0 No Gallagher 1,000 mL, Memor ia Chloride 09-13 William Rate: 75 l 0.9% IV 21:18: Abrams ml/hr, Herm darling 1,000 mL 00 Infuse over: 13.3 hr, Route: IV, kg, Total Volume: 1,000, Start date: 09/13/12 15:18:00, Duration: 30 day, Stop date: 10/13/12 15:17:00 morphine 2012-0 No Jina 4 mg, 1 Me moria Sulfate 1-08 Fabiana mL, Route: l 20:29: Brown IVP, Drug [employer] 00 form: INJ, ONCE, Dosing Weight 58.182, kg, Priority: STAT, Start date: 09/13/12 14:29:00, Stop date: 09/13/12 14:29:00 Saline 2012-0 No Jina 5 ml, Memori a Flush 0.9% -08 Fabiana Route: l 20:29: Brown IVP, Drug [employer] 00 Form: INJ, Dosing Weight 58.182, kg, PRN, PRN Line Flush, Administer at least once every 12 hours, Start date: 09/13/12 14:29:00, Duration: 30 day, Stop date: 10/13/12 14:28:00 morphine 2012-0 No Jina 4 mg, 1 Me moria Sulfate -08 Fabiana mL, Route: l 20:29: Brown IVP, Drug [employer] 00 form: INJ, ONCE, Dosing Weight 58.182, kg, Priority: STAT, Start date: 09/13/12 14:29:00, Stop date: 09/13/12 14:29:00 Saline 2012-0 No Jina 5 ml, Memori a Flush 0.9% 1-08 Fabiana Route: l 20:29: Brown IVP, Drug Neftaly 00 Form: INJ, Dosing Weight 58.182, kg, PRN, PRN Line Flush, Administer at least once every 12 hours, Start date: 09/13/12 14:29:00, Duration: 30 day, Stop date: 10/13/12 14:28:00 omega 3 omega 3 No omega 3 Jesse 183.3 183.3 183.3 Communi mg-dha 75 mg-dha 75 mg-dha 75 ty mg-epa 91.6 mg-epa 91.6 mg-epa Hospita mg-fish oil mg-fish oil 91.6 l 306 mg 306 mg mg-fish Clinics capsule capsule oil 306 mg Take by Take by capsule oral route. oral route. Take by oral route. ondansetron ondansetron No ondansetro [place] 4 mg 4 mg n 4 mg Communi disintegrat disintegrat disintegra ty ing tablet ing tablet ting Hos christine PL[facility] [address] PL[address] 1 tablet l TABLET TABLET PLACE 1 Clinics EVERY 4 6 EVERY 4 6 TABLET HOURS BY HOURS BY EVERY 4 6 TRANSLINGUA TRANSLINGUA HOURS BY L ROUTE L ROUTE TRANSLINGU NEEDED FOR NEEDED FOR AL ROUTE 5 DAYS. 5 DAYS. NEEDED FOR 5 DAYS. vit C 1,000 vit C 1,000 No vit C [place] mg-rutin 50 mg-rutin 50 1,000 Communi mg-hesper mg-hesper mg-rutin t y 50 50 50 Hospita mg-bioflv-r mg-bioflv-r mg-hesper l ose ose 50 Clinics tablet,ext. tablet,ext. mg-bioflv- release release tim Take by Take by tablet,ext oral route. oral route. .release Take by oral route. atorvastati atorvastati No atorvastat [place] n 10 mg n 10 mg in 10 mg Commu ni tablet TAKE tablet TAKE tablet ty 1 TABLET BY 1 TABLET BY TAKE 1 Hospita MOUTH EVERY MOUTH EVERY TABLET BY l DAY IN THE DAY IN THE MOUTH Cl inics EVENING EVENING EVERY DAY IN THE EVENING Baby Baby No 1 Q1D Baby [place] Aspirin 81 Aspirin 81 Aspirin 81 Communi mg chewable mg chewable mg t y tablet Chew tablet Chew chewable Hospita 1 tablet 1 tablet tablet l every day every day Chew 1 Cli nics by oral by oral tablet route. route. every day by oral route. Glucosamine Glucosamine No Glucosamin [place] e Communi [facility] Hair, Skin Hair, Skin No Hair, Skin [place] and Nails and Nails and Nails Communi [facility] naproxen naproxen No 1 BID naproxen Swe roly 500 mg 500 mg 500 mg Communi tablet,gerri tablet,gerri tablet,del ty yed release yed release ayed H ospita Take 1 Take 1 release l tablet tablet Take 1 Clinics twice a day twice a day tablet by oral by oral twice a route as route as day by directed directed oral route for 14 for 14 as days. days. directed for 14 days. nitrofurant nitrofurant No 1capsul Q12H nitrofuran [place] oin oin e(s) toin Communi monohydrate monohydrate monohydrat ty /macrocryst /macrocryst e/macrocry Hospita als 100 mg als 100 mg stals 100 l capsule capsule mg capsule Cli nics Take 1 Take 1 Take 1 capsule capsule capsule every 12 every 12 every 12 hours by hours by hours by oral route oral route oral route as directed as directed as for 7 days. for 7 days. directed for 7 days. omega 3 omega 3 No omega 3 [place] 183.3 183.3 183.3 Communi mg-dha 75 mg-dha 75 mg-dha 75 ty mg-epa 91.6 mg-epa 91.6 mg-epa Hospita mg-fish oil mg-fish oil 91.6 l 306 mg 306 mg mg-fish Clinics capsule capsule oil 306 mg Take by Take by capsule oral route. oral route. Take by oral route. ondansetron ondansetron No ondansetro [place] 4 mg 4 mg n 4 mg Communi disintegrat disintegrat disintegra ty ing tablet ing tablet ting [facility] christine PL[facility] [address] PL[address] 1 tablet l TABLET TABLET PLACE 1 Clinics EVERY 4 6 EVERY 4 6 TABLET HOURS BY HOURS BY EVERY 4 6 TRANSLINGUA TRANSLINGUA HOURS BY L ROUTE L ROUTE TRANSLINGU NEEDED FOR NEEDED FOR AL ROUTE 5 DAYS. 5 DAYS. NEEDED FOR 5 DAYS. vit C 1,000 vit C 1,000 No vit C [place] mg-rutin 50 mg-rutin 50 1,000 Communi mg-hesper mg-hesper mg-rutin t y 50 50 50 Hospita mg-bioflv-r mg-bioflv-r mg-hesper l ose ose 50 Clinics tablet,ext. tablet,ext. mg-bioflv- release release tim Take by Take by tablet,ext oral route. oral route. .release Take by oral route. atorvastati atorvastati No atorvastat [place] n 10 mg n 10 mg in 10 mg Commu ni tablet TAKE tablet TAKE tablet ty 1 TABLET BY 1 TABLET BY TAKE 1 Hospita MOUTH EVERY MOUTH EVERY TABLET BY l DAY IN THE DAY IN THE MOUTH Cl inics EVENING EVENING EVERY DAY IN THE EVENING Baby Baby No 1 Q1D Baby [place] Aspirin 81 Aspirin 81 Aspirin 81 Communi mg chewable mg chewable mg t y tablet Chew tablet Chew chewable Hospita 1 tablet 1 tablet tablet l every day every day Chew 1 Cli nics by oral by oral tablet route. route. every day by oral route. Glucosamine Glucosamine No Glucosamin [place] e Communi [facility] Hair, Skin Hair, Skin No Hair, Skin [place] and N[facility] Nails [facility] Nails [facility] omega 3 omega 3 No omega 3 [place] 183.3 183.3 183.3 Communi mg-dha 75 mg-dha 75 mg-dha 75 ty mg-epa 91.6 mg-epa 91.6 mg-epa Hospita mg-fish oil mg-fish oil 91.6 l 306 mg 306 mg mg-fish [facility] capsule capsule oil 306 mg Take by Take by capsule oral route. oral route. Take by oral route. vit C 1,000 vit C 1,000 No vit C [place] mg-rutin 50 mg-rutin 50 1,000 Communi mg-hesper mg-hesper mg-rutin t y 50 50 50 Hospita mg-bioflv-r mg-bioflv-r mg-hesper l ose ose 50 Clinics tablet,ext. tablet,ext. mg-bioflv- release release tim Take by Take by tablet,ext oral route. oral route. .release Take by oral route. Vitamin D3 Vitamin D3 No Vitamin D3 [place] Communi [facility] atorvastati atorvastati No atorvastat [place] n 10 mg n 10 mg in 10 mg Commu ni tablet TAKE tablet TAKE tablet ty 1 TABLET BY 1 TABLET BY TAKE 1 Hospita MOUTH EVERY MOUTH EVERY TABLET BY l DAY IN THE DAY IN THE MOUTH Cl inics EVENING EVENING EVERY DAY IN THE EVENING Baby Baby No 1 Q1D Baby [place] Aspirin 81 Aspirin 81 Aspirin 81 Communi mg chewable mg chewable mg t y tablet Chew tablet Chew chewable Hospita 1 tablet 1 tablet tablet l every day every day Chew 1 Cli nics by oral by oral tablet route. route. every day by oral route. Glucosamine Glucosamine No Glucosamin [place] e Communi ty [facility] Hair, Skin Hair, Skin No Hair, Skin [place] and Nails and Nails and Nails Communi [facility] omega 3 omega 3 No omega 3 [place] 183.3 183.3 183.3 Communi mg-dha 75 mg-dha 75 mg-dha 75 ty mg-epa 91.6 mg-epa 91.6 mg-epa Hospita mg-fish oil mg-fish oil 91.6 l 306 mg 306 mg mg-fish [facility] capsule capsule oil 306 mg Take by Take by capsule oral route. oral route. Take by oral route. vit C 1,000 vit C 1,000 No vit C [place] mg-rutin 50 mg-rutin 50 1,000 Communi mg-hesper mg-hesper mg-rutin t y 50 50 50 Hospita mg-bioflv-r mg-bioflv-r mg-hesper l ose ose 50 Clinics tablet,ext. tablet,ext. mg-bioflv- release release tim Take by Take by tablet,ext oral route. oral route. .release Take by oral route. Vitamin D3 Vitamin D3 No Vitamin D3 [place] Communi [facility] atorvastati atorvastati No atorvastat [place] n 10 mg n 10 mg in 10 mg Commu ni tablet TAKE tablet TAKE tablet ty 1 TABLET BY 1 TABLET BY TAKE 1 [facility] MOUTH EVERY MOUTH EVERY TABLET BY l DAY IN THE DAY IN THE MOUTH Cl inics EVENING EVENING EVERY DAY IN THE EVENING Baby Baby No 1 Q1D Baby [place] Aspirin 81 Aspirin 81 Aspirin 81 Communi mg chewable mg chewable mg t y tablet Chew tablet Chew chewable Hospita 1 tablet 1 tablet tablet l every day every day Chew 1 Cli nics by oral by oral tablet route. route. every day by oral route. cefdinir cefdinir No 1capsul Q12H cefdinir [place] 300 mg 300 mg e(s) 300 mg Communi capsule capsule capsule ty Take 1 Take 1 Take 1 Hospita capsule capsule capsule l every 12 every 12 every 12 Cli nics hours by hours by hours by oral route oral route oral route as directed as directed as for 7 days. for 7 days. directed for 7 days. Glucosamine Glucosamine No Glucosamin [place] e Communi [facility] Hair, Skin Hair, Skin No Hair, Skin [place] and Nails and Nails and Nails [facility] neomycin-po neomycin-po No neomycin-p [place] lymyxin-hyd lymyxin-hyd olymyxin-h Communi rocort 3.5 rocort 3.5 ydrocort ty mg-10,000 mg-10,000 3.5 Hospi ta unit/mL-1 % unit/mL-1 % mg-10,000 l ear ear unit/mL-1 Clinics drops,susp drops,susp % ear INSTILL 4 INSTILL 4 drops,susp DROPS INTO DROPS INTO INSTILL 4 AFFECTED AFFECTED DROPS INTO EAR(S) BY EAR(S) BY AFFECTED OTIC ROUTE OTIC ROUTE EAR(S) BY 3 TIMES PER 3 TIMES PER OTIC ROUTE DAY DAY 3 TIMES PER DAY omega 3 omega 3 No omega 3 [place] 183.3 183.3 183.3 Communi mg-dha 75 mg-dha 75 mg-dha 75 ty mg-epa 91.6 mg-epa 91.6 mg-epa Hospita mg-fish oil mg-fish oil 91.6 l 306 mg 306 mg mg-fish [facility] capsule capsule oil 306 mg Take by Take by capsule oral route. oral route. Take by oral route. vit C 1,000 vit C 1,000 No vit C [place] mg-rutin 50 mg-rutin 50 1,000 Communi mg-hesper mg-hesper mg-rutin t y 50 50 50 [facility] mg-bioflv-r mg-bioflv-r mg-hesper l ose ose 50 [facility] tablet,ext. tablet,ext. mg-bioflv- release release tim Take by Take by tablet,ext oral route. oral route. .release Take by oral route. Vitamin D3 Vitamin D3 No Vitamin D3 [place] [facility] zinc zinc No zinc [place] [facility] atorvastati atorvastati No atorvastat [place] n 10 mg n 10 mg in 10 mg Commu ni tablet TAKE tablet TAKE tablet ty 1 TABLET BY 1 TABLET BY TAKE 1 [facility] MOUTH EVERY MOUTH EVERY TABLET BY l DAY IN THE DAY IN THE MOUTH Cl inics EVENING EVENING EVERY DAY IN THE EVENING Baby Baby No 1 Q1D Baby [place] Aspirin 81 Aspirin 81 Aspirin 81 Communi mg chewable mg chewable mg t y tablet Chew tablet Chew chewable Hospita 1 tablet 1 tablet tablet l every day every day Chew 1 Cli nics by oral by oral tablet route. route. every day by oral route. cefdinir cefdinir No 1capsul Q12H cefdinir [place] 300 mg 300 mg e(s) 300 mg Communi capsule capsule capsule ty Take 1 Take 1 Take 1 Hospita capsule capsule capsule l every 12 every 12 every 12 Cli nics hours by hours by hours by oral route oral route oral route as directed as directed as for 7 days. for 7 days. directed for 7 days. Glucosamine Glucosamine No Glucosamin [place] e Communi ty [facility] Clinics Hair, Skin Hair, Skin No Hair, Skin [place] and Nails and Nails and Nails Communi [facility] ty [facility] omega 3 omega 3 No omega 3 [place] 183.3 183.3 183.3 Communi mg-dha 75 mg-dha 75 mg-dha 75 ty mg-epa 91.6 mg-epa 91.6 mg-epa Hospita mg-fish oil mg-fish oil 91.6 l 306 mg 306 mg mg-fish [facility] capsule capsule oil 306 mg Take by Take by capsule oral route. oral route. Take by oral route. prednisone prednisone No 1dose prednisone [place] 5 mg 5 mg pk(s) 5 mg Communi tablets in tablets in tablets in ty a dose pack a dose pack a dose Hospita Take 1 dose Take 1 dose pack Take l pk by oral pk by oral 1 dose pk Clinics route as route as by oral directed directed route as for 6 days. for 6 days. directed for 6 days. vit C 1,000 vit C 1,000 No vit C [place] mg-rutin 50 mg-rutin 50 1,000 Communi mg-hesper mg-hesper mg-rutin t y 50 50 50 Hospita mg-bioflv-r mg-bioflv-r mg-hesper l ose ose 50 Clinics tablet,ext. tablet,ext. mg-bioflv- release release tim Take by Take by tablet,ext oral route. oral route. .release Take by oral route. Vitamin D3 Vitamin D3 No Vitamin D3 [place] [facility] zinc zinc No zinc [place] [facility] Baby Baby No 1 Q1D Baby [place] Aspirin 81 Aspirin 81 Aspirin 81 Communi mg chewable mg chewable mg t y tablet Chew tablet Chew chewable Hospita 1 tablet 1 tablet tablet l every day every day Chew 1 Cli nics by oral by oral tablet route. route. every day by oral route. Glucosamine Glucosamine No Glucosamin [place] e Communi [facility] omega 3 omega 3 No omega 3 [place] 183.3 183.3 183.3 Communi mg-dha 75 mg-dha 75 mg-dha 75 ty mg-epa 91.6 mg-epa 91.6 mg-epa Hospita mg-fish oil mg-fish oil 91.6 l 306 mg 306 mg mg-fish [facility] capsule capsule oil 306 mg Take by Take by capsule oral route. oral route. Take by oral route. vit C 1,000 vit C 1,000 No vit C [place] mg-rutin 50 mg-rutin 50 1,000 Communi mg-hesper mg-hesper mg-rutin t y 50 50 50 Hospita mg-bioflv-r mg-bioflv-r mg-hesper l ose ose 50 Clinics tablet,ext. tablet,ext. mg-bioflv- release release tim Take by Take by tablet,ext oral route. oral route. .release Take by oral route. Vitamin D3 Vitamin D3 No Vitamin D3 [place] [facility] zinc zinc No zinc [place] [facility] Baby Baby No 1 Q1D Baby [place] Aspirin 81 Aspirin 81 Aspirin 81 Communi mg chewable mg chewable mg t y tablet Chew tablet Chew chewable Hospita 1 tablet 1 tablet tablet l every day every day Chew 1 Cli nics by oral by oral tablet route. route. every day by oral route. Glucosamine Glucosamine No Glucosamin [place] e [facility] omega 3 omega 3 No omega 3 [place] 183.3 183.3 183.3 Communi mg-dha 75 mg-dha 75 mg-dha 75 ty mg-epa 91.6 mg-epa 91.6 mg-epa Hospita mg-fish oil mg-fish oil 91.6 l 306 mg 306 mg mg-fish [facility] capsule capsule oil 306 mg Take by Take by capsule oral route. oral route. Take by oral route. vit C 1,000 vit C 1,000 No vit C [place] mg-rutin 50 mg-rutin 50 1,000 Communi mg-hesper mg-hesper mg-rutin t y 50 50 50 Hospita mg-bioflv-r mg-bioflv-r mg-hesper l ose ose 50 Clinics tablet,ext. tablet,ext. mg-bioflv- release release tim Take by Take by tablet,ext oral route. oral route. .release Take by oral route. Vitamin D3 Vitamin D3 No Vitamin D3 [place] [facility] zinc zinc No zinc [place] [facility] Baby Baby No 1 Q1D Baby [place] Aspirin 81 Aspirin 81 Aspirin 81 Communi mg chewable mg chewable mg t y tablet Chew tablet Chew chewable Hospita 1 tablet 1 tablet tablet l every day every day Chew 1 Cli nics by oral by oral tablet route. route. every day by oral route. Glucosamine Glucosamine No Glucosamin [place] e Communi [facility] omega 3 omega 3 No omega 3 [place] 183.3 183.3 183.3 Communi mg-dha 75 mg-dha 75 mg-dha 75 ty mg-epa 91.6 mg-epa 91.6 mg-epa Hospita mg-fish oil mg-fish oil 91.6 l 306 mg 306 mg mg-fish [facility] capsule capsule oil 306 mg Take by Take by capsule oral route. oral route. Take by oral route. vit C 1,000 vit C 1,000 No vit C [place] mg-rutin 50 mg-rutin 50 1,000 Communi mg-hesper mg-hesper mg-rutin t y 50 50 50 Hospita mg-bioflv-r mg-bioflv-r mg-hesper l ose ose 50 Clinics tablet,ext. tablet,ext. mg-bioflv- release release tim Take by Take by tablet,ext oral route. oral route. .release Take by oral route. Vitamin D3 Vitamin D3 No Vitamin D3 [place] [facility] zinc zinc No zinc [place] Baby Baby No 1 Q1D Baby [place] Aspirin 81 Aspirin 81 Aspirin 81 Communi mg chewable mg chewable mg t y tablet Chew tablet Chew chewable Hospita 1 tablet 1 tablet tablet l every day every day Chew 1 Cli nics by oral by oral tablet route. route. every day by oral route. famotidine famotidine No 1 BID famotidine [place] 20 mg 20 mg 20 mg Communi tablet Take tablet Take tablet ty 1 tablet 1 tablet Take 1 Hospi ta twice a day twice a day tablet l by oral by oral twice a Clinic s route. route. day by oral route. Glucosamine Glucosamine No Glucosamin [place] e Communi [facility] omega 3 omega 3 No omega 3 [place] 183.3 183.3 183.3 Communi mg-dha 75 mg-dha 75 mg-dha 75 ty mg-epa 91.6 mg-epa 91.6 mg-epa Hospita mg-fish oil mg-fish oil 91.6 l 306 mg 306 mg mg-fish [facility] capsule capsule oil 306 mg Take by Take by capsule oral route. oral route. Take by oral route. prednisone prednisone No 1 BID prednisone [place] 20 mg 20 mg 20 mg Communi tablet Take tablet Take tablet ty 1 tablet 1 tablet Take 1 Hospi ta twice a day twice a day tablet l by oral by oral twice a Clinic s route for 5 route for 5 day by days. days. oral route for 5 days. vit C 1,000 vit C 1,000 No vit C [place] mg-rutin 50 mg-rutin 50 1,000 Communi mg-hesper mg-hesper mg-rutin t y 50 50 50 Hospita mg-bioflv-r mg-bioflv-r mg-hesper l ose ose 50 [facility] tablet,ext. tablet,ext. mg-bioflv- release release tim Take by Take by tablet,ext oral route. oral route. .release Take by oral route. Vitamin D3 Vitamin D3 No Vitamin D3 [facility] [place] zinc zinc No zinc [place] [facility] Baby Baby No 1 Q1D Baby [place] Aspirin 81 Aspirin 81 Aspirin 81 Communi mg chewable mg chewable mg t y tablet Chew tablet Chew chewable Hospita 1 tablet 1 tablet tablet l every day every day Chew 1 Cli nics by oral by oral tablet route. route. every day by oral route. cetirizine cetirizine No 1 Q1D cetirizine [place] 10 mg 10 mg 10 mg Communi tablet Take tablet Take tablet ty 1 tablet 1 tablet Take 1 Hospi ta every day every day tablet l by oral by oral every day Clin ics route. route. by oral route. fluticasone fluticasone No 1spray( Q1D fluticason [place] propionate propionate s) e Com giovani 50 50 propionate ty mcg/actuati mcg/actuati 50 H ospita on nasal on nasal mcg/actuat l spray,suspe spray,suspe ion nasal Clinics nsion [place] nsion [place] spray,susp 1 spray 1 spray ension every day every day [place] 1 by by spray intranasal intranasal every day route. route. by intranasal route. Glucosamine Glucosamine No Glucosamin [place] e Communi ty Hospita l Clinics neomycin-po neomycin-po No 4drop(s QID neomycin-p [place] lymyxin-hyd lymyxin-hyd ) olymyxin-h Communi rocort 3.5 rocort 3.5 ydrocort ty mg-10,000 mg-10,000 3.5 Hospi ta unit/mL-1 % unit/mL-1 % mg-10,000 l ear ear unit/mL-1 Clinics drops,susp drops,susp % ear Instill 4 Instill 4 drops,susp drops 4 drops 4 Instill 4 times a day times a day drops 4 by otic by otic times a route for 5 route for 5 day by days. TO days. TO otic route RIGHT EAR RIGHT EAR for 5 days. TO RIGHT EAR omega 3 omega 3 No omega 3 [place] 183.3 183.3 183.3 Communi mg-dha 75 mg-dha 75 mg-dha 75 ty mg-epa 91.6 mg-epa 91.6 mg-epa Hospita mg-fish oil mg-fish oil 91.6 l 306 mg 306 mg mg-fish Clinics capsule capsule oil 306 mg Take by Take by capsule oral route. oral route. Take by oral route. vit C 1,000 vit C 1,000 No vit C [place] mg-rutin 50 mg-rutin 50 1,000 Communi mg-hesper mg-hesper mg-rutin t y 50 50 50 Hospita mg-bioflv-r mg-bioflv-r mg-hesper l ose ose 50 Clinics tablet,ext. tablet,ext. mg-bioflv- release release tim Take by Take by tablet,ext oral route. oral route. .release Take by oral route. Vitamin D3 Vitamin D3 No Vitamin D3 [place] [facility] ty [facility] zinc zinc No zinc [place] [facility] amoxicillin amoxicillin No 1 Q12H amoxicilli [place] [id number] n 875 Communi mg-potassiu mg-potassiu mg-potassi ty m m um [facility] clavulanate clavulanate clavulanat l 125 mg 125 mg e 125 mg Clinics tablet Take tablet Take tablet 1 tablet 1 tablet Take 1 every 12 every 12 tablet hours by hours by every 12 oral route oral route hours by as directed as directed oral route for 7 days. for 7 days. as directed for 7 days. Baby Baby No 1 Q1D Baby [place] Aspirin 81 Aspirin 81 Aspirin 81 Communi mg chewable mg chewable mg t y tablet Chew tablet Chew chewable Hospita 1 tablet 1 tablet tablet l every day every day Chew 1 Cli nics by oral by oral tablet route. route. every day by oral route. cetirizine cetirizine No cetirizine [place] 10 mg 10 mg 10 mg [facility] tablet TAKE tablet TAKE tablet ty 1 TABLET BY 1 TABLET BY TAKE 1 [facility] MOUTH EVERY MOUTH EVERY TABLET BY l DAY DAY MOUTH Clinics EVERY DAY erythromyci erythromyci No erythromyc [place] n 5 mg/gram n 5 mg/gram in 5 C ommuni (0.5 %) eye (0.5 %) eye mg/gram ty ointment ointment (0.5 %) Hosp deepthi eye l ointment Clinics fluticasone fluticasone No fluticason [place] propionate propionate e Com giovani 50 50 propionate ty mcg/actuati mcg/actuati 50 H ospita on nasal on nasal mcg/actuat l spray,suspe spray,suspe ion nasal Clinics nsion SPRAY nsion SPRAY spray,susp 1 SPRAY BY 1 SPRAY BY ension INTRANASAL INTRANASAL SPRAY 1 ROUTE EVERY ROUTE EVERY SPRAY BY DAY DAY INTRANASAL ROUTE EVERY DAY Glucosamine Glucosamine No Glucosamin [place] e Communi ty [facility] neomycin-po neomycin-po No neomycin-p [place] lymyxin-hyd lymyxin-hyd olymyxin-h Communi rocort 3.5 rocort 3.5 ydrocort ty mg-10,000 mg-10,000 3.5 Hospi ta unit/mL-1 % unit/mL-1 % mg-10,000 l ear ear unit/mL-1 Clinics drops,susp drops,susp % ear INSTILL 4 INSTILL 4 drops,susp DROPS 4 DROPS 4 INSTILL 4 TIMES A DAY TIMES A DAY DROPS 4 TO THE TO THE TIMES A RIGHT EAR RIGHT EAR DAY TO THE FOR 5 DAYS. FOR 5 DAYS. RIGHT EAR FOR 5 DAYS. omega 3 omega 3 No omega 3 [place] 183.3 183.3 183.3 Communi mg-dha 75 mg-dha 75 mg-dha 75 ty mg-epa 91.6 mg-epa 91.6 mg-epa Hospita mg-fish oil mg-fish oil 91.6 l 306 mg 306 mg mg-fish Clinics capsule capsule oil 306 mg Take by Take by capsule oral route. oral route. Take by oral route. vit C 1,000 vit C 1,000 No vit C [place] mg-rutin 50 mg-rutin 50 1,000 Communi mg-hesper mg-hesper mg-rutin t y 50 50 50 Hospita mg-bioflv-r mg-bioflv-r mg-hesper l ose ose 50 Clinics tablet,ext. tablet,ext. mg-bioflv- release release tim Take by Take by tablet,ext oral route. oral route. .release Take by oral route. Vitamin D3 Vitamin D3 No Vitamin D3 [place] [facility] zinc zinc No zinc [place] [facility] Baby Baby No 1 Q1D Baby [place] Aspirin 81 Aspirin 81 Aspirin 81 Communi mg chewable mg chewable mg t y tablet Chew tablet Chew chewable Hospita 1 tablet 1 tablet tablet l every day every day Chew 1 Cli nics by oral by oral tablet route. route. every day by oral route. cetirizine cetirizine No cetirizine [place] 10 mg 10 mg 10 mg Communi tablet TAKE tablet TAKE tablet ty 1 TABLET BY 1 TABLET BY TAKE 1 Hospita MOUTH EVERY MOUTH EVERY TABLET BY l DAY DAY MOUTH Clinics EVERY DAY erythromyci erythromyci No erythromyc [place] n 5 mg/gram n 5 mg/gram in 5 C ommuni (0.5 %) eye (0.5 %) eye mg/gram ty ointment ointment (0.5 %) Hosp deepthi eye l ointment Clinics fluticasone fluticasone No fluticason [place] propionate propionate e Com giovani 50 50 propionate ty mcg/actuati mcg/actuati 50 H ospita on nasal on nasal mcg/actuat l spray,suspe spray,suspe ion nasal Clinics nsion SPRAY nsion SPRAY spray,susp 1 SPRAY BY 1 SPRAY BY ension INTRANASAL INTRANASAL SPRAY 1 ROUTE EVERY ROUTE EVERY SPRAY BY DAY DAY INTRANASAL ROUTE EVERY DAY Glucosamine Glucosamine No Glucosamin [place] e Communi ty Hospita l Clinics Macrobid Macrobid No 1capsul Q12H Macrobid [place] 100 mg 100 mg e(s) 100 mg Communi capsule capsule capsule ty Take 1 Take 1 Take 1 Hospita capsule capsule capsule l every 12 every 12 every 12 Cli nics hours by hours by hours by oral route oral route oral route for 7 days. for 7 days. for 7 days. neomycin-po neomycin-po No neomycin-p [place] lymyxin-hyd lymyxin-hyd olymyxin-h Communi rocort 3.5 rocort 3.5 ydrocort ty mg-10,000 mg-10,000 3.5 Hospi ta unit/mL-1 % unit/mL-1 % mg-10,000 l ear ear unit/mL-1 Clinics drops,susp drops,susp % ear INSTILL 4 INSTILL 4 drops,susp DROPS 4 DROPS 4 INSTILL 4 TIMES A DAY TIMES A DAY DROPS 4 TO THE TO THE TIMES A RIGHT EAR RIGHT EAR DAY TO THE FOR 5 DAYS. FOR 5 DAYS. RIGHT EAR FOR 5 DAYS. omega 3 omega 3 No omega 3 [place] 183.3 183.3 183.3 Communi mg-dha 75 mg-dha 75 mg-dha 75 ty mg-epa 91.6 mg-epa 91.6 mg-epa Hospita mg-fish oil mg-fish oil 91.6 l 306 mg 306 mg mg-fish Clinics capsule capsule oil 306 mg Take by Take by capsule oral route. oral route. Take by oral route. vit C 1,000 vit C 1,000 No vit C [place] mg-rutin 50 mg-rutin 50 1,000 Communi mg-hesper mg-hesper mg-rutin t y 50 50 50 Hospita mg-bioflv-r mg-bioflv-r mg-hesper l ose ose 50 Clinics tablet,ext. tablet,ext. mg-bioflv- release release tim Take by Take by tablet,ext oral route. oral route. .release Take by oral route. Vitamin D3 Vitamin D3 No Vitamin D3 [place] Communi ty [facility] l [facility] zinc zinc No zinc [place] Communi ty [facility]osp[facility] l [facility] amoxicillin amoxicillin No 1 Q12H amoxicilli [place] [id number] n 875 Communi mg-potassiu mg-potassiu mg-potassi ty m m um [facility] clavulanate clavulanate clavulanat l 125 mg 125 mg e 125 mg Clinics tablet Take tablet Take tablet 1 tablet 1 tablet Take 1 every 12 every 12 tablet hours by hours by every 12 oral route oral route hours by as directed as directed oral route for 10 for 10 as days. days. directed for 10 days. Baby Baby No 1 Q1D Baby [place] Aspirin 81 Aspirin 81 Aspirin 81 Communi mg chewable mg chewable mg t y tablet Chew tablet Chew chewable Hospita 1 tablet 1 tablet tablet l every day every day Chew 1 Cli nics by oral by oral tablet route. route. every day by oral route. cetirizine cetirizine No cetirizine [place] 10 mg 10 mg 10 mg Communi tablet TAKE tablet TAKE tablet ty 1 TABLET BY 1 TABLET BY TAKE 1 Hospita MOUTH EVERY MOUTH EVERY TABLET BY l DAY DAY MOUTH Clinics EVERY DAY Glucosamine Glucosamine No Glucosamin [place] e Communi ty Hospita l [facility] omega 3 omega 3 No omega 3 [place] 183.3 183.3 183.3 Communi mg-dha 75 mg-dha 75 mg-dha 75 ty mg-epa 91.6 mg-epa 91.6 mg-epa Hospita mg-fish oil mg-fish oil 91.6 l 306 mg 306 mg mg-fish Clinics capsule capsule oil 306 mg Take by Take by capsule oral route. oral route. Take by oral route. vit C 1,000 vit C 1,000 No vit C [place] mg-rutin 50 mg-rutin 50 1,000 Communi mg-hesper mg-hesper mg-rutin t y 50 50 50 Hospita mg-bioflv-r mg-bioflv-r mg-hesper l ose ose 50 Clinics tablet,ext. tablet,ext. mg-bioflv- release release tim Take by Take by tablet,ext oral route. oral route. .release Take by oral route. Vitamin D3 Vitamin D3 No Vitamin D3 [place] [facility] zinc zinc No zinc [place] [facility] Baby Baby No 1 Q1D Baby [place] Aspirin 81 Aspirin 81 Aspirin 81 Communi mg chewable mg chewable mg t y tablet Chew tablet Chew chewable Hospita 1 tablet 1 tablet tablet l every day every day Chew 1 Cli nics by oral by oral tablet route. route. every day by oral route. cetirizine cetirizine No cetirizine [place] 10 mg 10 mg 10 mg Communi tablet TAKE tablet TAKE tablet ty 1 TABLET BY 1 TABLET BY TAKE [facility] EVERY MOUTH EVERY TABLET BY l DAY DAY MOUTH Clinics EVERY DAY Glucosamine Glucosamine No Glucosamin [place] e Communi [facility] Macrobid Macrobid No 1capsul Q12H Macrobid [place] 100 mg 100 mg e(s) 100 mg Communi capsule capsule capsule ty Take 1 Take 1 Take 1 Hospita capsule capsule capsule l every 12 every 12 every 12 Cli nics hours by hours by hours by oral route oral route oral route for 7 days. for 7 days. for 7 days. omega 3 omega 3 No omega 3 [place] 183.3 183.3 183.3 Communi mg-dha 75 mg-dha 75 mg-dha 75 ty mg-epa 91.6 mg-epa 91.6 mg-epa Hospita mg-fish oil mg-fish oil 91.6 l 306 mg 306 mg mg-fish [facility] capsule capsule oil 306 mg Take by Take by capsule oral route. oral route. Take by oral route. vit C 1,000 vit C 1,000 No vit C [place] mg-rutin 50 mg-rutin 50 1,000 Communi mg-hesper mg-hesper mg-rutin t y 50 50 50 Hospita mg-bioflv-r mg-bioflv-r mg-hesper l ose ose 50 [facility] tablet,ext. tablet,ext. mg-bioflv- release release tim Take by Take by tablet,ext oral route. oral route. .release Take by oral route. Vitamin D3 Vitamin D3 No Vitamin D3 [place] [facility] zinc zinc No zinc [place] [facility] Baby Baby No 1 Q1D Baby [place] Aspirin 81 Aspirin 81 Aspirin 81 Communi mg chewable mg chewable mg t y tablet Chew tablet Chew chewable Hospita 1 tablet 1 tablet tablet l every day every day Chew 1 Cli nics by oral by oral tablet route. route. every day by oral route. cetirizine cetirizine No cetirizine [place] 10 mg 10 mg 10 mg Communi tablet TAKE tablet TAKE tablet ty 1 TABLET BY 1 TABLET BY TAKE 1 Hospita MOUTH EVERY MOUTH EVERY TABLET BY l DAY DAY MOUTH Clinics EVERY DAY Glucosamine Glucosamine No Glucosamin [place] e [facility] omega 3 omega 3 No omega 3 [place] 183.3 183.3 183.3 Communi mg-dha 75 mg-dha 75 mg-dha 75 ty mg-epa 91.6 mg-epa 91.6 mg-epa Hospita mg-fish oil mg-fish oil 91.6 l 306 mg 306 mg mg-fish [facility] capsule capsule oil 306 mg Take by Take by capsule oral route. oral route. Take by oral route. vit C 1,000 vit C 1,000 No vit C [place] mg-rutin 50 mg-rutin 50 1,000 Communi mg-hesper mg-hesper mg-rutin t y 50 50 50 Hospita mg-bioflv-r mg-bioflv-r mg-hesper l ose ose 50 Clinics tablet,ext. tablet,ext. mg-bioflv- release release tim Take by Take by tablet,ext oral route. oral route. .release Take by oral route. Vitamin D3 Vitamin D3 No Vitamin D3 [place] [facility] zinc zinc No zinc [place] [facility] Baby Baby No 1 Q1D Baby [place] Aspirin 81 Aspirin 81 Aspirin 81 Communi mg chewable mg chewable mg t y tablet Chew tablet Chew chewable Hospita 1 tablet 1 tablet tablet l every day every day Chew 1 Cli nics by oral by oral tablet route. route. every day by oral route. cetirizine cetirizine No cetirizine [place] 10 mg 10 mg 10 mg Communi tablet TAKE tablet TAKE tablet ty 1 TABLET BY 1 TABLET BY TAKE 1 Hospita MOUTH EVERY MOUTH EVERY TABLET BY l DAY DAY MOUTH Clinics EVERY DAY Glucosamine Glucosamine No Glucosamin [place] e Communi ty [facility] Macrobid Macrobid No 1capsul Q12H Macrobid [place] 100 mg 100 mg e(s) 100 mg Communi capsule capsule capsule ty Take 1 Take 1 Take 1 Hospita capsule capsule capsule l every 12 every 12 every 12 Cli nics hours by hours by hours by oral route oral route oral route for 7 days. for 7 days. for 7 days. omega 3 omega 3 No omega 3 [place] 183.3 183.3 183.3 Communi mg-dha 75 mg-dha 75 mg-dha 75 ty mg-epa 91.6 mg-epa 91.6 mg-epa Hospita mg-fish oil mg-fish oil 91.6 l 306 mg 306 mg mg-fish [facility] capsule capsule oil 306 mg Take by Take by capsule oral route. oral route. Take by oral route. vit C 1,000 vit C 1,000 No vit C [place] mg-rutin 50 mg-rutin 50 1,000 Communi mg-hesper mg-hesper mg-rutin t y 50 50 50 Hospita mg-bioflv-r mg-bioflv-r mg-hesper l ose ose 50 Clinics tablet,ext. tablet,ext. mg-bioflv- release release tim Take by Take by tablet,ext oral route. oral route. .release Take by oral route. Vitamin D3 Vitamin D3 No Vitamin D3 [place] [facility] zinc zinc No zinc [place] Communi [facility] atorvastati atorvastati No atorvastat [place] n 10 mg n 10 mg in 10 mg Commu ni tablet TAKE tablet TAKE tablet ty 1 TABLET BY 1 TABLET BY TAKE 1 Hospita MOUTH EVERY MOUTH EVERY TABLET BY l DAY IN THE DAY IN THE MOUTH Cl inics EVENING EVENING EVERY DAY IN THE EVENING azithromyci azithromyci No azithromyc [place] n 250 mg n 250 mg in 250 mg Co mmuni tablet TAKE tablet TAKE tablet ty 2 TABLETS 2 TABLETS TAKE 2 Hos christine BY MOUTH BY MOUTH TABLETS BY l TODAY, THEN TODAY, THEN MOUTH Clinics TAKE 1 TAKE 1 TODAY, TABLET TABLET THEN TAKE DAILY FOR 4 DAILY FOR 4 1 TABLET DAYS DAYS DAILY FOR 4 DAYS Baby Baby No 1 Q1D Baby [place] Aspirin 81 Aspirin 81 Aspirin 81 Communi mg chewable mg chewable mg t y tablet Chew tablet Chew chewable Hospita 1 tablet 1 tablet tablet l every day every day Chew 1 Cli nics by oral by oral tablet route. route. every day by oral route. Glucosamine Glucosamine No Glucosamin [place] e Communi ty [facility] Hair, Skin Hair, Skin No Hair, Skin [place] and Nails and Nails and Nails Communi [facility] methylpredn methylpredn No methylpred [place] isolone 4 isolone 4 nisolone 4 Communi mg tablets mg tablets mg tablets ty in a dose in a dose in a dose [facility] pack TA[facility] 6 pack TAKE 6 pack TAKE l TABLETS ON TABLETS ON 6 TABLETS Clinics DAY 1 DAY 1 ON DAY 1 DIRECTED ON DIRECTED ON PACKAGE AND PACKAGE AND DIRECTED DECREASE BY DECREASE BY ON PACKAGE 1 TAB EACH 1 TAB EACH AND DAY FOR A DAY FOR A DECREASE TOTAL OF 6 TOTAL OF 6 BY 1 TAB DAYS DAYS EACH DAY FOR A TOTAL OF 6 DAYS nitrofurant nitrofurant No nitrofuran [place] oin oin toin Communi monohydrate monohydrate monohydrat ty /macrocryst /macrocryst e/macrocry Hospita als 100 mg als 100 mg stals 100 l capsule capsule mg capsule Cli nics TAKE 1 TAKE 1 TAKE 1 CAPSULE BY CAPSULE BY CAPSULE BY MOUTH EVERY MOUTH EVERY MOUTH 12 HOURS 12 HOURS EVERY 12 DIRECTED DIRECTED HOURS FOR 7 DAYS FOR 7 DAYS DIRECTED FOR 7 DAYS omega 3 omega 3 No omega 3 [place] 183.3 183.3 183.3 Communi mg-dha 75 mg-dha 75 mg-dha 75 ty mg-epa 91.6 mg-epa 91.6 mg-epa Hospita mg-fish oil mg-fish oil 91.6 l 306 mg 306 mg mg-fish Clinics capsule capsule oil 306 mg Take by Take by capsule oral route. oral route. Take by oral route. ondansetron ondansetron No ondansetro [place] 4 mg 4 mg n 4 mg Communi disintegrat disintegrat disintegra ty ing tablet ing tablet ting Hos christine PLACE 1 PLACE 1 tablet l TABLET TABLET PLACE 1 Clinics EVERY 4 6 EVERY 4 6 TABLET HOURS BY HOURS BY EVERY 4 6 TRANSLINGUA TRANSLINGUA HOURS BY L ROUTE L ROUTE TRANSLINGU NEEDED FOR NEEDED FOR AL ROUTE 5 DAYS. 5 DAYS. NEEDED FOR 5 DAYS. vit C 1,000 vit C 1,000 No vit C [place] mg-rutin 50 mg-rutin 50 1,000 Communi mg-hesper mg-hesper mg-rutin t y 50 50 50 Hospita mg-bioflv-r mg-bioflv-r mg-hesper l ose ose 50 Clinics tablet,ext. tablet,ext. mg-bioflv- release release tim Take by Take by tablet,ext oral route. oral route. .release Take by oral route. atorvastati atorvastati No atorvastat [place] n 10 mg n 10 mg in 10 mg Commu ni tablet TAKE tablet TAKE tablet ty 1 TABLET BY 1 TABLET BY TAKE 1 Hospita MOUTH EVERY MOUTH EVERY TABLET BY l DAY IN THE DAY IN THE MOUTH Cl inics EVENING EVENING EVERY DAY IN THE EVENING Baby Baby No 1 Q1D Baby [place] Aspirin 81 Aspirin 81 Aspirin 81 Communi mg chewable mg chewable mg t y tablet Chew tablet Chew chewable Hospita 1 tablet 1 tablet tablet l every day every day Chew 1 Cli nics by oral by oral tablet route. route. every day by oral route. Glucosamine Glucosamine No Glucosamin [place] e Communi ty [facility] Hair, Skin Hair, Skin No Hair, Skin [place] and Nails and Nails [facility] Nails [facility]i [facility] naproxen naproxen No 1 BID naproxen Swe roly 500 mg 500 mg 500 mg Communi tablet,gerri tablet,gerri tablet,del ty yed release yed release ayed H ospita Take 1 Take 1 release l tablet tablet Take 1 [facility] twice a day twice a day tablet by oral by oral twice a route as route as day by directed directed oral route for 14 for 14 as days. days. directed for 14 days. nitrofurant nitrofurant No 1capsul Q12H nitrofuran [place] oin oin e(s) toin Communi monohydrate monohydrate monohydrat ty /macrocryst /macrocryst e/macrocry Hospita als 100 mg als 100 mg stals 100 l capsule capsule mg capsule Cli nics Take 1 Take 1 Take 1 capsule capsule capsule every 12 every 12 every 12 hours by hours by hours by oral route oral route oral route as directed as directed as for 7 days. for 7 days. directed for 7 days. Immunizations Ordered Immunization Filled Immunization Date Status Commen ts Source Name Name influenza, influenza, 2021-09-06 Completed [place] [facility] ty injectable, injectable, 00:00:00 Hospital Cli [facility] quadrivalent quadrivalent influenza, influenza, 2021-09-06 Completed [place] Communi ty injectable, injectable, 00:00:00 Hospital Cli nics quadrivalent quadrivalent influenza, influenza, 2021-09-06 Completed [place] Communi ty injectable, injectable, 00:00:00 [facility] Cli nics quadrivalent quadrivalent influenza, influenza, 2021-09-06 Completed [place] Communi ty injectable, injectable, 00:00:00 [facility] Cli nics quadrivalent quadrivalent influenza, influenza, 2021-09-06 Completed [place] Communi ty injectable, injectable, 00:00:00 Hospital Cli nics quadrivalent quadrivalent influenza, influenza, 2021-09-06 Completed [place] Communi ty injectable, injectable, 00:00:00 Hospital Cli nics quadrivalent quadrivalent influenza, influenza, 2021-09-06 Completed [place] Communi ty injectable, injectable, 00:00:00 [facility] Cli nics quadrivalent quadrivalent influenza, influenza, 2021-09-06 Completed [place] Communi ty injectable, injectable, 00:00:00 Hospital Cli nics quadrivalent quadrivalent influenza, influenza, 2021-09-06 Completed [place] Communi ty injectable, injectable, 00:00:00 Hospital Cli nics quadrivalent quadrivalent influenza, influenza, 2021-09-06 Completed [place] Communi ty injectable, injectable, 00:00:00 Hospital Cli nics quadrivalent quadrivalent influenza, influenza, 2021-09-06 Completed [place] Communi ty injectable, injectable, 00:00:00 [facility] Cli nics quadrivalent quadrivalent Influenza, Influenza, 2019-07-19 Completed [place] Communi ty injectable, MDCK, injectable, MDCK, 11:31:00 [facility] Clinics quadrivalent quadrivalent Influenza, Influenza, 2019-07-19 Completed [place] Communi ty injectable, MDCK, injectable, MDCK, 11:31:00 Hospital Clinics quadrivalent quadrivalent Influenza, Influenza, 2019-07-19 Completed [place] Communi ty injectable, MDCK, injectable, MDCK, 11:31:00 Hospital Clinics quadrivalent quadrivalent Influenza, Influenza, 2019-07-19 Completed [place] Communi ty injectable, MDCK, injectable, MDCK, 11:31:00 [facility] quadrivalent quadrivalent Influenza, Influenza, 2019-07-19 Completed [place] [facility] injectable, MDCK, injectable, MDCK, 11:31:00 [facility] quadrivalent quadrivalent Influenza, Influenza, 2019-07-19 Completed [place] [facility] injectable, MDCK, injectable, MDCK, 11:31:00 [facility] quadrivalent quadrivalent Influenza, Influenza, 2019-07-19 Completed [place] [facility] injectable, MDCK, injectable, MDCK, 11:31:00 [facility] quadrivalent quadrivalent Influenza, Influenza, 2019-07-19 Completed [place] [facility] injectable, MDCK, injectable, MDCK, 11:31:00 [facility] quadrivalent quadrivalent Influenza, Influenza, 2019-07-19 Completed [place] [facility] injectable, MDCK, injectable, MDCK, 11:31:00 [facility] quadrivalent quadrivalent Influenza, Influenza, 2019-07-19 Completed [place] [facility] injectable, MDCK, injectable, MDCK, 11:31:00 [facility] quadrivalent quadrivalent Influenza, Influenza, 2019-07-19 Completed [place] [facility] injectable, MDCK, injectable, MDCK, 11:31:00 [facility] quadrivalent quadrivalent Influenza, Influenza, 2019-07-19 Completed [place] [facility] injectable, MDCK, injectable, MDCK, 11:31:00 [facility] quadrivalent quadrivalent Influenza, Influenza, 2019-07-19 Completed [place] [facility] injectable, MDCK, injectable, MDCK, 11:31:00 [facility] quadrivalent quadrivalent Influenza, Influenza, 2019-07-19 Completed [place] [facility] injectable, MDCK, injectable, MDCK, 11:31:00 [facility] quadrivalent quadrivalent Influenza, Influenza, 2019-07-19 Completed [place] [facility] injectable, MDCK, injectable, MDCK, 11:31:00 [facility] quadrivalent quadrivalent Influenza, Influenza, 2019-07-19 Completed [place] [facility] injectable, MDCK, injectable, MDCK, 11:31:00 [facility] quadrivalent quadrivalent Influenza, Influenza, 2019-07-19 Completed [place] [facility] injectable, MDCK, injectable, MDCK, 11:31:00 [facility] quadrivalent quadrivalent Influenza, Influenza, 2019-07-19 Completed [place] [facility] injectable, MDCK, injectable, MDCK, 11:31:00 [facility] quadrivalent quadrivalent influenza, influenza, 2018-07-20 Completed [place] [facility] injectable, injectable, 00:00:00 Hospital Cli nics quadrivalent quadrivalent influenza, influenza, 2018-07-20 Completed [place] [facility] injectable, injectable, 00:00:00 Hospital Cli nics quadrivalent quadrivalent influenza, influenza, 2018-07-20 Completed [place] [facility] injectable, injectable, 00:00:00 Hospital Cli nics quadrivalent quadrivalent influenza, influenza, 2018-07-20 Completed [place] [facility] injectable, injectable, 00:00:00 Hospital Cli nics quadrivalent quadrivalent influenza, influenza, 2018-07-20 Completed [place] [facility] injectable, injectable, 00:00:00 Hospital Cli nics quadrivalent quadrivalent influenza, influenza, 2018-07-20 Completed [place] [facility] injectable, injectable, 00:00:00 Hospital Cli nics quadrivalent quadrivalent influenza, influenza, 2018-07-20 Completed [place] [facility] injectable, injectable, 00:00:00 Hospital Cli nics quadrivalent quadrivalent influenza, influenza, 2018-07-20 Completed [place] [facility] injectable, injectable, 00:00:00 Hospital Cli nics quadrivalent quadrivalent influenza, influenza, 2018-07-20 Completed [place] [facility] injectable, injectable, 00:00:00 Hospital Cli nics quadrivalent quadrivalent influenza, influenza, 2018-07-20 Completed [place] [facility] injectable, injectable, 00:00:00 Hospital Cli nics quadrivalent quadrivalent influenza, influenza, 2018-07-20 Completed [place] [facility] injectable, injectable, 00:00:00 Hospital Cli nics quadrivalent quadrivalent influenza, influenza, 2018-07-20 Completed [place] [facility] injectable, injectable, 00:00:00 Hospital Cli nics quadrivalent quadrivalent influenza, influenza, 2018-07-20 Completed [place] [facility] injectable, injectable, 00:00:00 Hospital Cli nics quadrivalent quadrivalent influenza, influenza, 2018-07-20 Completed [place] [facility] injectable, injectable, 00:00:00 Hospital Cli nics quadrivalent quadrivalent influenza, influenza, 2018-07-20 Completed [place] [facility] injectable, injectable, 00:00:00 Hospital Cli nics quadrivalent quadrivalent influenza, influenza, 2018-07-20 Completed [place] [facility] injectable, injectable, 00:00:00 Hospital Cli nics quadrivalent quadrivalent influenza, influenza, 2018-07-20 Completed [place] [facility] injectable, injectable, 00:00:00 Hospital Cli nics quadrivalent quadrivalent influenza, influenza, 2018-07-20 Completed [place] [facility] injectable, injectable, 00:00:00 Hospital Cli nics quadrivalent quadrivalent Vital Signs Vital Name Observation Time Observation Value Comments Source BP Diastolic 2023-05-06 00:00:00 62 mm[Hg] [facility] s Height 2023-05-06 00:00:00 63 [in_i] [facility] s BP Systolic 2023-05-06 00:00:00 133 mm[Hg] [facility] s Body Weight 2023-05-06 00:00:00 2147.2 [oz_av] [facility] s BMI (Body Mass 2023-05-06 00:00:00 23.8 kg/m2 [facility] s BP Diastolic 2023-02-09 00:00:00 67 mm[Hg] [facility] s Height 2023-02-09 00:00:00 63 [in_i] [facility] s BMI (Body Mass 2023-02-09 00:00:00 23.6 kg/m2 [facility]) [facility] s BP Systolic 2023-02-09 00:00:00 138 mm[Hg] [facility] s Body Weight 2023-02-09 00:00:00 2131.2 [oz_av] [facility] s BP Diastolic 2023-01-21 00:00:00 77 mm[Hg] [facility] s Height 2023-01-21 00:00:00 63 [in_i] [facility] s BMI (Body Mass 2023-01-21 00:00:00 23.6 kg/m2 [facility] s BP Systolic 2023-01-21 00:00:00 153 mm[Hg] [facility] s Body Weight 2023-01-21 00:00:00 2131.2 [oz_av] [facility] s BP Diastolic 2022-11-27 00:00:00 68 mm[Hg] [facility] s Height 2022-11-27 00:00:00 63 [in_i] [facility] s BP Systolic 2022-11-27 00:00:00 141 mm[Hg] [facility] s Body Weight 2022-11-27 00:00:00 2102.4 [oz_av] [facility] s BP Diastolic 2022-11-16 00:00:00 68 mm[Hg] [facility] s Height 2022-11-16 00:00:00 63 [in_i] [facility] s BMI (Body Mass 2022-11-16 00:00:00 23.3 kg/m2 [facility] s BP Systolic 2022-11-16 00:00:00 144 mm[Hg] [facility] s Body Weight 2022-11-16 00:00:00 2108.8 [oz_av] [facility] s BP Diastolic 2022-07-21 00:00:00 68 mm[Hg] [facility] s Height 2022-07-21 00:00:00 63 [in_i] [facility] s BMI (Body Mass 2022-07-21 00:00:00 24.1 kg/m2 [facility] s BP Systolic 2022-07-21 00:00:00 156 mm[Hg] [facility] s Body Weight 2022-07-21 00:00:00 2172.8 [oz_av] [facility] s Height 2022-06-10 00:00:00 63 [in_i] [facility] s BMI (Body Mass 2022-06-10 00:00:00 23.7 kg/m2 [facility] Body Weight 2022-06-10 00:00:00 2137.6 [oz_av] [facility] s BP Diastolic 2021-10-29 00:00:00 75 mm[Hg] [facility] s Height 2021-10-29 00:00:00 63 [in_i] [facility] s BMI (Body Mass 2021-10-29 00:00:00 23.2 kg/m2 [facility] s BP Systolic 2021-10-29 00:00:00 144 mm[Hg] [facility] s Body Weight 2021-10-29 00:00:00 2096 [oz_av] [facility] s BP Diastolic 2021-10-14 00:00:00 71 mm[Hg] [facility] s Height 2021-10-14 00:00:00 63 [in_i] [facility] s BMI (Body Mass 2021-10-14 00:00:00 23.3 kg/m2 [facility] BP Systolic 2021-10-14 00:00:00 155 mm[Hg] [facility] s Body Weight 2021-10-14 00:00:00 2102.4 [oz_av] [facility] s BP Diastolic 2021-06-04 00:00:00 77 mm[Hg] [facility] s Height 2021-06-04 00:00:00 63 [in_i] [facility] s BMI (Body Mass 2021-06-04 00:00:00 22.9 kg/m2 [place] [facility] BP Systolic 2021-06-04 00:00:00 141 mm[Hg] [facility] s Body Weight 2021-06-04 00:00:00 2064 [oz_av] [facility] s BP Diastolic 2021-05-15 00:00:00 69 mm[Hg] [facility] s Height 2021-05-15 00:00:00 63 [in_i] [facility] s BMI (Body Mass 2021-05-15 00:00:00 23.2 kg/m2 [facility]) [facility] s BP Systolic 2021-05-15 00:00:00 146 mm[Hg] [facility] s Body Weight 2021-05-15 00:00:00 2092.8 [oz_av] [facility] s BP Diastolic 2021-03-26 00:00:00 69 mm[Hg] [facility] s Height 2021-03-26 00:00:00 63 [in_i] [facility] s BMI (Body Mass 2021-03-26 00:00:00 23.1 kg/m2 [facility] s BP Systolic 2021-03-26 00:00:00 145 mm[Hg] [facility] s Body Weight 2021-03-26 00:00:00 2083.2 [oz_av] [facility] s Systolic blood 2021-02-19 15:02:00 130 mm[Hg] Univer sity of pressure [facility] Diastolic blood 2021-02-19 15:02:00 74 mm[Hg] Unive rsity of pressure [facility] Heart rate 2021-02-19 15:02:00 75 /min [facility] Body temperature 2021-02-19 15:02:00 36.28 [facility] Res[facility] 2021-02-19 15:02:00 18 /min [facility] Body weight 2021-02-19 15:02:00 58.469 kg [facility] BMI 2021-02-19 15:02:00 22.83 kg/m2 Universi ty of [facility] Oxygen saturation in 2021-02-19 15:02:00 98 /min [facility] of Arterial blood by [facility] P[facility] oxim[facility] Branch Systolic blood 2020-12-25 19:22:00 139 mm[Hg] Univer sity of pressure [facility] Diastolic blood 2020-12-25 19:22:00 70 mm[Hg] Unive rsity of [facility] Heart rate 2020-12-25 19:22:00 67 /min Universi ty of [facility] Body temperature 2020-12-25 19:22:00 36.33 [facility] Respiratory rate 2020-12-25 19:22:00 18 /min [facility] Body height 2020-12-25 19:22:00 160 cm Universi ty of [facility] Body weight 2020-12-25 19:22:00 57.97 kg Universi ty [facility] BMI 2020-12-25 19:22:00 22.64 kg/m2 Universi ty [facility] Oxygen saturation in 2020-12-25 19:22:00 100 /min [facility] blood by [facility] Body temperature 2020-12-24 19:23:00 36.17 [facility] Body height 2020-12-24 19:23:00 160 cm Universi ty [facility] Body weight 2020-12-24 19:23:00 57.788 kg Universi ty [facility] BMI 2020-12-24 19:23:00 22.57 kg/m2 Universi ty [facility] BP Diastolic 2020-12-11 00:00:00 66 mm[Hg] [facility] s Height 2020-12-11 00:00:00 63 [in_i] [facility] s BMI (Body Mass 2020-12-11 00:00:00 22.4 kg/m2 [facility] s BP Systolic 2020-12-11 00:00:00 149 mm[Hg] [facility] s Body Weight 2020-12-11 00:00:00 2019.2 [oz_av] [facility] s Height 2020-10-10 00:00:00 63 [in_i] [facility] s Systolic blood 2020-06-05 20:15:00 128 mm[Hg] Univer sity of pressure [facility] Diastolic blood 2020-06-05 20:15:00 57 mm[Hg] Unive rsity of pressure [facility] Heart rate 2020-06-05 20:15:00 73 /min [facility] Respiratory rate 2020-06-05 20:15:00 15 /min [facility] Oxygen saturation in 2020-06-05 20:15:00 98 /min [facility] Arterial blood by [facility] Branch Body temperature 2020-06-05 20:04:00 37.06 Ana [facility] Body height 2020-06-03 13:00:00 160 cm [facility] Body weight 2020-06-03 13:00:00 58.968 kg [facility] BMI 2020-06-03 13:00:00 23.03 kg/m2 [facility] Diastolic (mm Hg) 2012-09-14 18:00:00 Mem orial [place] Systolic (mm Hg) 2012-09-14 18:00:00 Yovany rial [employer] Respitory Rate 2012-09-14 18:00:00 Memori al [employer] Diastolic (mm Hg) 2012-09-14 17:00:00 Mem orial [employer] Systolic (mm Hg) 2012-09-14 17:00:00 Yovany rial [place] Respitory Rate 2012-09-14 17:00:00 Memori al [employer] Temperature Oral (F) 2012-09-14 17:00:00 97.4 F [facility] [employer] Systolic (mm Hg) 2012-09-14 16:00:00 Yovany rial [place] Diastolic (mm Hg) 2012-09-14 16:00:00 Mem orial [place] Respitory Rate 2012-09-14 16:00:00 Memori al [place] Temperature Oral (F) 2012-09-14 14:00:00 96.7 F [facility] [employer] Temperature Oral (F) 2012-09-14 10:19:00 96.2 F [facility] Height 2012-09-14 04:35:00 160.02 cm [facility] Weight 2012-09-14 04:35:00 [facility] Weight 2012-09-13 20:11:00 [facility] Procedures Procedure Date / Time Performing Clinician Source Performed XR, knee, 3 view 2023-02-09 00:00:00 [facility] XR, chest, 2 view 2023-02-09 00:00:00 [facility] MAMMO, screening, digital, 2023-01-21 00:00:[address] [facility] [place] EXTERNAL PROVIDER RECORDS 2022-08-11 06:01:00 Doctor Unassigned, [facility] XR, facial bones 2022-07-21 00:00:00 [facility] REFERRAL- REQUEST/RESPONSE 2022-06-11 05:01:00 Doctor Unassigned , [facility] XR, hip + pelvis, 2022-06-10 00:00:00 [facility] unilateral, 2 or 3 view [facility] XR, lumbosacral spine, 2 2022-06-10 00:00:00 [facility] or 3 view [facility] bone density 2021-10-14 00:00:[address] [facility] MAMMO, screening, digital, 2021-10-07 00:00:[address] [facility] [place] XR HIPS 2 VW BILATERAL 2021-02-19 15:37:43 [facility] XR LUMBAR SPINE 2 VW 2021-02-19 15:37:30 [facility] XR SPINE THORACIC 2 VW 2021-02-19 15:37:12 [facility] DEXA PERIPHERAL (FOREARM) 2020-12-27 15:29:12 [facility] DEXA AXIAL (HIP AND SPINE) 2020-12-27 15:27:55 [facility] XR, hip + pelvis, 2020-12-11 00:00:00 Jesse Velasquez munanatoliy bilateral, 2 [facility] Cl[facility] cs XR, lumbosacral spine, 4 2020-12-11 00:00:00 [facility] or [facility] XR, thoracic spine, 4 or 2020-12-11 00:00:00 [facility] Cataract Surgery Complex 2020-07-07 00:00:00 [facility] DAY SURGERY - ADC 2020-06-05 05:01:00 Doctor Unassigned, [facility] NOTICE OF BILLING 2020-05-10 21:00:34 Doctor Unassigned, [facility] PRACTICES FOR MEDICARE [place] [facility] PATIENTS [facility] PATIENT FINANCIAL 2020-05-10 21:00:08 Doctor Unassigned, [facility] POLICY [facility] NO SHOW OR MISSED 2020-05-10 20:59:35 Doctor Unassigned, [facility] APPOINTMENT POLICY [facility] ACKNOWLEDGEMENT NO SHOW OR MISSED 2020-05-10 20:59:14 Doctor Unassigned, [facility] APPOINTMENT POLICY [facility] [facility] ACKNOWLEDGEMENT NO SHOW OR MISSED 2020-05-10 20:58:52 Doctor Unassigned, [facility] APPOINTMENT POLICY [facility] [facility] ACKNOWLEDGEMENT NOTICE OF PRIVACY 2020-05-10 20:58:26 Doctor Unassigned, [facility] PRACTICES [facility] CONSENT/REFUSAL FOR 2020-05-10 20:58:08 Doctor Unassigned, [facility] DIAGNOSIS AND TREATMENT [facility] CONSENT/REFUSAL FOR 2020-05-10 20:57:44 Doctor Unassigned, [facility] DIAGNOSIS AND TREATMENT [facility] ASSIGNMENT OF BENEFITS 2020-05-10 20:57:23 [facility] ASSIGNMENT OF BENEFITS 2020-05-10 20:57:00 Doctor Unassigned, [facility] PHYSICIAN ORDERS 2020-05-10 05:01:00 Doctor Unassigned, [facility] [facility] Tonsillectomy 1966-09-06 00:00:00 [facility] Colon[facility] <sup[facility]</sup> Patellaplasty <sup>2</sup> Jazmin Higginbotham Plan of Care Planned Activity Planned Date Details Comments Source Diagnostic Test 2023-05-06 ur[place]ysis, [place] Dick[place] nitmauricio Pending 00:00:00 dipstick [code = Hospital Cl inics urinalysis, dipstick] Instructions [place] [facility] Encounters Start End Encounter Admission Attending Care Care Encounter Source Date/Time Date/Time Type Type Clinicians Facility Department ID 2021-10-01 [facility] [id number] Common 13:55:56 [id number] [facility] 2021-07-04 Outpatient Bret CORRALES [facility] SHEYLA [id number] Univers 16:04:40 BOBBY cope [facility] 2023-05-06 2023-05-06 Outpatient L_Michaelsyed [facility] [id number] 230 [place] 00:00:00 00:00:00 831 Commun i ty [facility] 2023-05-06 2023-05-06 [facility] [place] [id number] 31 [place] 00:00:00 00:00:00 Bam Bree Comm francisco DIAZ, MSN, Hospital - ty [facility] [address] [place] [address], CLINIC [address] [place] [phone] , Ph. 2023-02-09 2023-02-09 [facility] [place] [id number] 06 [place] 00:00:00 00:00:00 Bree Kuhn Comm francisco DIAZ, MSN, Hospital - ty [facility] [address] [place] [address], CLINIC [address] [place] [phone] , Ph. 2023-02-04 2023-02-04 Outpatient L_Pena [facility] [id number] 230 [place] 00:00:00 00:00:00 606 Commun i ty Hospita l [facility] 2023-01-25 2023-01-25 Outpatient L_Pena [facility] [id number] 230 [place] 00:00:00 00:00:00 522 Commun i ty Hospita l Clinics 2023-01-21 2023-01-21 Outpatient L_Pena [facility] [id number] 230 [place] 00:00:00 00:00:00 518 Commun i ty Hospita l Clinics 2023-01-21 2023-01-21 Gabriela [facility] [place] [facility] [place] 18 [place] 00:00:00 00:00:00 Bree Kuhn APRN, MSN, Hospital - ty [facility]-: [facility] [address] [place] [address], CLINIC [address], [place] [address] , Ph. 2022-12-17 2022-12-17 Outpatient L_Pena [facility] [id number] 230 [place] 00:00:00 00:00:00 413 Commun i ty Hospita l Clinics 2022-12-17 2022-12-17 Outpatient L_Pena [facility] [id number] 230 [place] 00:00:00 00:00:00 503 Commun i ty Hospita l Clinics 2022-11-27 2022-11-27 Outpatient L_Pena [facility] [id number] 230 [place] 00:00:00 00:00:00 324 Commun i ty Hospita l Clinics 2022-11-27 2022-11-27 Lana [facility] [place] [facility] [place] 24 [place] 00:00:00 00:00:00 Yumiko [facility] mariano DIAZ-RESIN PAINTER-B Hospital - ty C: [address] [facility], [address]INIC [address], [place] [address] , Ph. 2022-11-16 2022-11-16 Outpatient L_Pena [facility] [id number] 230 [place] 00:00:00 00:00:00 313 Commun i ty Hospita l Clinics 2022-11-16 2022-11-16 Gabriela [facility] [place] [facility] [place] [id number] 13 [place] 00:00:00 00:00:00 Bree Kuhn APRN MSN, Hospital - ty [facility] [address] [place] [address], CLINIC [address], [place] [address] , Ph. 2022-08-11 2022-08-11 Orders Doctor LIZ [id number] Univers 00:00:00 00:00:00 Only Unassigned, NICOLE [id number] ity [facility] [place] [facility] [id number] Cuco as [id number] [address] 2022-07-21 2022-07-21 Outpatient [facility] [id number] 221 [place] 00:00:00 00:00:00 115 Commun i ty [facility] 2022-07-21 2022-07-21 Outpatient [facility] [id number] 230 [place] 00:00:00 00:00:00 131 Commun i ty [facility] 2022-07-21 2022-07-21 [facility] [place] [facility] [place] [id number] 15 [place] 00:00:00 00:00:00 Kuhn, [facility] Comm francisco DIAZ, MSN, [facility] - ty [facility] [address], CLINIC [address], [place] [address] , Ph. 2022-06-29 2022-06-29 [facility] [id number] Univers 13:45:00 13:45:00 CURTIS [facility] 2022-06-12 2022-06-12 Telephone Vanessa [facility] [id number] Univers 00:00:00 00:00:00 Curtis L Tipp24 [id number] it y of [place] [id number] Cuco as SARAH?BLEA [id number] [address] MEDICAL OFFICE BUILDING 2022-06-11 2022-06-11 Orders Doctor LIZ [id number] Univers 00:00:00 00:00:00 Only Unassigned, NICOLE [id number] ity [facility] [place] [facility] [id number] Cuco as [id number] [address] 2022-06-10 2022-06-10 Outpatient R VANESSA [facility] [id number] Univers 14:15:00 14:15:00 CURTIS anatoliy [facility] 2022-06-10 2022-06-10 Outpatient L_Bam [facility] [id number] 221 [place] 00:00:00 00:00:00 005 Commun i ty Hospita l Clinics 2022-06-10 2022-06-10 Gabriela [facility] [place] 00:00:00 00:00:00 Bam [facility] Comm francisco DIAZ, MSN, Hospital - ty [facility]-: [address], CLINIC [address] [place] [phone] , Ph. 2022-06-09 2022-06-09 Outpatient L_Bam [facility] [id number] 221 [place] 00:00:00 00:00:00 [facility] 2022-05-27 2022-05-27 Outpatient R SRI [facility] [id number] Univers 10:20:00 10:20:00 anatoliy GREEN [facility] 2022-04-27 2022-04-27 Outpatient CHRETIEN_F [facility] 6870 - [place] 00:00:00 00:00:00 822 [facility] 2022-02-20 2022-02-20 Outpatient [facility] 6870-2 0 [place] 09:10:00 09:10:00 617 [facility] 2021-10-29 2021-10-29 Outpatient [facility] [id number] 0 [place] 02:38:00 02:38:00 223 [facility] 2021-10-29 2021-10-29 Nidia [facility] [place] 00:00:00 00:00:00 Estefany [facility] Comm francisco DIAZ-ORDERING BOX OPERATOR-C: Hospital - ty [address] [facility] [address], [place] [address] , Ph. 2021-10-29 2021-10-29 Outpatient Estefany, [facility] [id number] 00:00:00 00:00:00 Nidia [id number] 2021-10-28 2021-10-28 Outpatient [facility] [id number] 0220 [place] 03:49:00 03:49:00 222 [facility] 2021-10-14 2021-10-14 Outpatient [facility] [id number] 0220 [place] 03:09:00 03:09:00 208 [facility] Hospita [facility] 2021-10-14 2021-10-14 [facility] [place] 00:00:00 00:00:00 [facility] BEHAVIORAL TECHNICIAN-ORDERING BOX OPERATOR-C: Hospital - ty [address] [place] [address] [address], [place] [address] , Ph. 2021-10-14 2021-10-14 Outpatient Allison, [facility] [id number] 00:00:00 00:00:00 Nidia [id number] 2021-10-14 2021-10-14 Outpatient Allison, [facility] [id number] 00:00:00 00:00:00 Nidia [id number] 2021-10-14 2021-10-14 Outpatient Allison, [facility] [id number] 00:00:00 00:00:00 Nidia [id number] 2021-10-13 2021-10-13 Outpatient [facility] 6870-2 0220 [place] 09:42:00 09:42:00 207 [facility] 2021-10-07 2021-10-07 Outpatient [facility] [id number] 0220 [place] 10:19:00 10:19:00 201 [facility] 2021-07-18 2021-07-18 Outpatient [facility] 687 [place] 01:44:00 01:44:00 _L 112 [facility] 2021-06-25 2021-06-25 Refill Sri [place] 1.2.840.114 [id number] Univers 00:00:00 00:00:00 njumon, Pediatric 350.1.13.10 [place] [id number] [address] 2021-06-19 2021-06-19 Refill DELON Boyd 1.2.840.114 [id number] Univers 00:00:00 00:00:00 Nick SPECIALTY 350.1.13.10 [place] [id number] [facility] [address] [facility] 2021-06-13 2021-06-13 Outpatient [facility] 687 [place] 02:28:00 02:28:00 _L 008 [facility] 2021-06-04 2021-06-04 Outpatient [facility] 687 [place] 05:56:00 05:56:00 _L 929 [facility] 2021-06-04 2021-06-04 Outpatient [facility] 7d0 [id number] 00:00:00 00:00:00 , Felisa [id number]-11ec-a Chanel [id number] 2021-06-04 2021-06-04 Felisa Buchanan [facility] [place] 202 [address] [place] 00:00:00 00:00:00 [facility] LINDSAY chenC: [address], [place] [address] , Ph. 2021-05-15 2021-05-15 Outpatient [facility] 687 0- [place] 11:47:00 11:47:00 _L 909 [facility] 2021-05-15 2021-05-15 Outpatient [facility] f39 [id number] 00:00:00 00:00:00 , Felisa [id number]-b Chanel [id number] 2021-05-15 2021-05-15 Felisa Buchanan [facility] [place] 202 [id number] [place] 00:00:00 00:00:00 [facility]QUIS Gallego: [address] [address], [place] [address] , Ph. 2021-05-10 2021-05-10 Outpatient [facility] 687 0- [place] 01:02:00 01:02:00 _L 904 [facility] 2021-04-04 2021-04-04 Outpatient [facility] 687 0- [place] 01:18:00 01:18:00 _L 730 [facility] 2021-03-26 2021-03-26 Outpatient [facility] 687 0- [place] 04:33:00 04:33:00 _L 721 [facility] 2021-03-26 2021-03-26 Felisa Buchanan [facility] [place] 202 [id number] [place] 00:00:00 00:00:00 [facility] Gal[facility]o: [address], [place] [address] , Ph. 2021-03-26 2021-03-26 Outpatient [facility] [id number] 00:00:00 00:00:00 , Felisa [id number] Chanel [id number] 2021-03-26 Outpatient [facility] [id number] 00:00:00 00:00:00 , Felisa [id number] Chanel [id number] 2021-02-19 2021-02-19 [facility] 1.2.840.114 [id number] Univers 10:27:21 23:59:00 Encounter njumon, Pediatric 350.1.13.10 [place] [id number] [facility] [address] [facility] 2021-02-19 2021-02-19 [facility] [place] 1.2.840.114 [id number] Univers 10:27:15 23:59:00 Encounter leslieon, Pediatric 350.1.13.10 [place] [id number] [facility] [address] [facility] 2021-02-19 2021-02-19 [facility] Vahid 1.2.840.114 [id number] Univers 10:27:04 23:59:00 Encounter amie, Pediatric 350.1.13.10 [place] [id number] [facility] [address] [facility] 2021-02-19 2021-02-19 Office [facility] Vahid 1.2.840.114 [id number] Univers 09:59:10 10:38:21 Visit njumon, Pediatric 350.1.13.10 [place] [id number] [facility] Primary [address] [facility] 2021-02-19 2021-02-19 Outpatient R SRI [facility] 582 [id number] Univers 10:20:00 10:20:00 AMIE, ity of [facility] 2021-02-05 2021-02-05 Outpatient SCHAUBROECK [facility] 687 0 [place] 03:30:00 03:30:00 _L 602 [facility] 2021-01-22 2021-01-[address] [facility] [id number] [id number] Univers 10:20:00 10:20:00 AMIE ity of [facility] 2021-01-15 2021-01-15 [facility] 1.2.840.114 [id number] Univers 00:00:00 00:00:00 Nick SPECIALTY 350.1.13.10 [place] [id number] [address] 2021-01-13 2021-01-13 [facility] 1.2.840.114 [id number] Univers 00:00:00 00:00:00 Nick SPECIALTY 350.1.13.10 [place] [id number] [address] 2021-01-07 2021-01-07 Telephone [facility] Vahid 1.2.840.114 [id number] Univers 00:00:00 00:00:00 Marlen green 350.1.13.10 [place] [id number] [facility] Primary [address] [facility] 2020-12-27 2020-12-27 [facility] 1.2.840.114 [id number] Univers 10:00:53 23:59:00 Encounter Liam green 350.1.13.10 [place] [id number] [facility] [address] 2020-12-27 2020-12-27 [facility] 1.2.840.114 [id number] Univers 10:00:00 10:00:00 Encounter njumon, [place] 350.1.13.10 ity of [facility] 4[place]2.[place].2.[place] [id number] [facility] [address] 2020-12-27 2020-12-27 Outpatient R SRI [facility] 272 [id number] Univers 00:00:00 00:00:00 anatoliy GREEN of [facility] 2020-12-25 2020-12-25 Office Sri [place] 1.2.840.114 [id number] Univers 14:16:13 16:20:05 Visit amie Pediatric 350.1.13.10 ity of [facility] 4.2.7.2.686 [facility] Adult [id number] [facility] Primary 198 Branch [facility] 2020-12-25 2020-12-25 Outpatient R SRI [facility] 971 [id number] Univers 16:20:00 16:20:00 anatoliy GREEN of [facility] 2020-12-24 2020-12-24 Office Parth [facility] 1.2.840.114 [id number] Univers 14:21:38 15:41:42 Visit Nick SPECIALTY 350.1.13.10 ity of [facility] 4.2.7.2.[address] [facility] AT [id number] [address] 2020-12-24 2020-12-24 Outpatient Bret BOYD [facility] [id number] Univers 14:20:00 14:20:00 NICK ity of [facility] 2020-12-11 2020-12-11 Outpatient [facility] 687 0 [place] 10:33:00 10:33:00 _L 407 [facility] 2020-12-11 2020-12-11 Outpatient [facility] [id number] 00:00:00 00:00:00 , Felisa [id number] Chanel [id number] 2020-12-11 2020-12-11 Outpatient [facility] 184 [id number] 00:00:00 00:00:00 , Felisa [id number] Chanel [id number] 2020-12-11 2020-12-11 Felisa Buchanan [facility] [place] 202 [id number] [place] 00:00:00 00:00:00 [facility] GABRIELE GallegoP-C: Hospital ty [address] [facility] [address], [place] [address] , Ph. 2020-12-10 2020-12-10 Outpatient [facility] 687 0- [place] 12:13:00 12:13:00 _L 406 [facility] 2020-10-10 2020-10-10 Outpatient [facility] 687 - [place] 11:51:00 11:51:00 _L 204 Commun i ty Hospita l [facility] 2020-10-10 2020-10-10 Outpatient [facility] [id number] 00:00:00 00:00:00 , Felisa [id number] Chanel [id number] 2020-10-10 2020-10-10 Felisa Buchanan [facility] [place] 202 [id number] [place] 00:00:00 00:00:00 [facility] GABRIELE GallegoP-C: Hospital - ty [address] [facility] [address], [place] [address] , Ph. 2020-08-19 2020-08-19 Outpatient [facility] 687 [place] 10:18:00 10:18:00 _L 214 [facility] 2020-06-05 2020-06-05 [facility] [id number] [id number] Univers 12:10:00 15:21:00 Encounter Bobby Wheeler 350.1.13.10 [place] 4.2.7.2.686 [facility] Surgical [id number] [place] [address] Center 2020-06-05 2020-06-05 Orders Doctor LIZ 1.2.840.114 [id number] Univers 00:00:00 00:00:00 Only UnassignedNICOLE 350.1.13.10 it[facility] 4.2.7.2.686 [place] [id number] [facility] 009 Center 2020-06-04 2020-06-04 Laboratory Only, [facility] Test [facility] 1.2.840. 114 [id number] Univers 09:26:53 09:41:53 Only Bobby Corrales Liam 350.1.13.1 0 ity of [place] [id number] [facility] 353 Center 2020-06-04 2020-06-04 Outpatient R CHRIS [facility] [id number] Univers 09:30:00 09:30:00 BOBBY [facility] 2020-05-10 2020-05-10 Radial Router Operator Seven, [facility] Lab Main [facility] 1.2.8 40.114 [id number] Univers 15:55:31 16:10:31 Visit Bobby Corrales 350.1.13.1 0 ity of [place] 4.2.7.2.[address] [facility] [id number] Wy dic[address] 2020-05-10 2020-05-10 Outpatient R CHRIS [facility] [id number] Univers 16:00:00 16:00:00 BOBBY [facility] 2012-09-13 2012-09-14 [facility] [id number] Memoria 15:18:00 13:15:[address] 2012-09-13 2012-09-14 Inpatient [facility] 14048 [id number] Mem[place] 15:18:00 13:15:[address] Results Test Description Test Time Test Comments Results Result Comments Source Urinalysis macro (dipstick) panel - Urine 2023-01-21 09:29:0 0 Test Item Value Reference Range Interpretation Comme nts Leukocytes (test code = Leukocytes) Negative Nitrite (test code = Nitrite) negative Urobilinogen (test code = Urobilinogen) .2 Protein (test code = Protein) Negative pH (test code = pH) 7.0 Blood (test code = Blood) Non-Hemolyzed: Trace Specific [place] (test code = Specific [place]) 1.015 Ketone (test code = Ketone) Negative Bilirubin (test code = Bilirubin) Negative Glucose (test code = Glucose) Negative Appearance (test code = Appearance) Clear Color (test code = Color) Yellow [facility], [id number] 00:00:00 Test Item Value Reference Range Interpretation Comments Cytology report of Cervical or comment vaginal smear or scraping Cyto stain (test code = 50430-9) Statement of adequacy comment [Interpretation] of Cervical or vaginal smear or scraping by Cyto stain (test code = 98778-0) Braided Rug Maker who read Cyto stain of comment Cervical or vaginal smear or scraping (test code = 75754-5) Microscopic observation [Identifier] . in Specimen by Other stain (test code = 48824-0) note: (test code = note:) comment Cytology report of Cervical or comment vaginal smear or scraping Cyto stain.thin prep (test code = 22737-0) [facility] panel - Serum or [id number] 00:00:00 Test Item Value Reference Range Interpretation Comments Cholesterol [Mass/volume] in Serum 182 mg/dL 100-199 or Plasma (test code = 2093-3) Triglyceride [Mass/volume] in Serum 115 mg/dL 0-149 or Plasma (test code = 2571-8) Cholesterol in HDL [Mass/volume] in 68 mg/dL >39 Serum or Plasma (test code = 2085-9) Cholesterol in VLDL [Mass/volume] 20 mg/dL 5-40 in Serum or Plasma by calculation (test code = 16503-0) Cholesterol in LDL [Mass/volume] in 94 mg/dL 0-99 Serum or Plasma by calculation (test code = 09263-7) Laboratory comment [Text] in Report pre sales architect Narrative (test code = 67303-2) Cholesterol in LDL/Cholesterol in 1.4 ratio 0.0-3.2 HDL [Mass Ratio] in Serum or Plasma (test code = 12529-0) [facility]ics[facility] [id number] 00:00:00 Test Item Value Reference Range Interpretation Comments written authorization (test code = comment written authorization) [facility] T[facility] and TSH panel - Serum or Plasma 2021-10-15 00:00:00 Test Item Value Reference Range Interpretation Comments Thyrotropin [Units/volume] in 2.070 uIU/mL 0.450-4.500 Serum or Plasma by Detection limit <= 0.005 mIU/L (test code = 29059-5) Thyroxine (T4) free 1.36 NG/dL 0.82-1.77 [Mass/volume] in Serum or Plasma (test code = 3024-7) [facility] 2000 panel - Serum or [id number] 00:00:00 Test Item Value Reference Range Interpretation Comments Glucose [Mass/volume] in 98 mg/dL 65-99 Serum or Plasma (test code = 2345-7) Urea nitrogen [Mass/volume] 12 mg/dL 8-27 in Serum or Plasma (test code = 3094-0) Creatinine [Mass/volume] in 0.56 mg/dL 0.57-1.00 L Serum or Plasma (test code = 2160-0) Glomerular filtration 96 mL/min/1.73 >59 rate/1.73 sq M.predicted among non-blacks [Volume Rate/Area] in Serum, Plasma or Blood by Creatinine-based formula (CKD-EPI) (test code = 73835-9) Glomerular filtration 111 mL/min/1.73 >59 rate/1.73 sq M.predicted among blacks [Volume Rate/Area] in Serum, Plasma or Blood by Creatinine-based formula (CKD-EPI) (test code = 76513-6) Urea nitrogen/Creatinine 21 12-28 [Mass Ratio] in Serum or Plasma (test code = 3097-3) Sodium [Moles/volume] in 142 mmol/L 134-144 Serum or Plasma (test code = 2951-2) Potassium [Moles/volume] in 4.5 mmol/L 3.5-5.2 Serum or Plasma (test code = 2823-3) Chloride [Moles/volume] in 103 mmol/L 96-106 Serum or Plasma (test code = 2075-0) Carbon dioxide, total 23 mmol/L 20-29 [Moles/volume] in Serum or Plasma (test code = 2027-9) Calcium [Mass/volume] in 9.9 mg/dL 8.7-10.3 Serum or Plasma (test code = 42607-9) Protein [Mass/volume] in 7.2 g/dL 6.0-8.5 Serum or Plasma (test code = 2885-2) Albumin [Mass/volume] in 4.9 g/dL 3.8-4.8 H Serum or Plasma (test code = 1751-7) Globulin [Mass/volume] in 2.3 g/dL 1.5-4.5 Serum by calculation (test code = 01500-2) Albumin/Globulin [Mass Ratio] 2.1 1.2-2.2 in Serum or Plasma (test code = 1759-0) Bilirubin.total [Mass/volume] 0.3 mg/dL 0.0-1.2 in Serum or Plasma (test code = 1975-2) Alkaline phosphatase 131 IU/L 44-121 H [Enzymatic activity/volume] in Serum or Plasma (test code = 6768-6) Aspartate aminotransferase 14 IU/L 0-40 [Enzymatic activity/volume] in Serum or Plasma (test code = 1920-8) Alanine aminotransferase 16 IU/L 0-32 [Enzymatic activity/volume] in Serum or Plasma (test code = 1742-6) [facility]25-Hydroxyvitamin D3+25-Hydroxyvitamin D2 [Mass/volume] in Serum or [id number] 00:00:00 Test Item Value Reference Range Interpretation Comments 25-Hydroxyvitamin 31.1 NG/mL 30.0-100.0 D3+25-Hydroxyvitamin D2 [Mass/volume] in Serum or Plasma (test code = 93596-1) [facility]ound[facility]cal occult blood, [id number] 10:05:00 Test Item Value Reference Range Interpretation Comments Negative (test code = Negative) negative [facility] occult blood, [id number] 10:05:00 Test Item Value Reference Range Interpretation Comments Negative (test code = Negative) negative [facility] W Auto Differential panel - [id number] 00:00:00 Test Item Value Reference Range Interpretation Comments Leukocytes [#/volume] in Blood 9.3 x10e3/uL 3.4-10.8 by Automated count (test code = 6690-2) Erythrocytes [#/volume] in 4.57 x10e6/uL 3.77-5.28 Blood by Automated count (test code = 789-8) Hemoglobin [Mass/volume] in 12.9 g/dL 11.1-15.9 Blood (test code = 718-7) Hematocrit [Volume Fraction] of 39.2 % 34.0-46.6 Blood by Automated count (test code = 4544-3) Erythrocyte mean corpuscular 86 fL 79-97 volume [Entitic volume] by Automated count (test code = 787-2) MCH [Entitic mass] by Automated 28.2 pg 26.6-33.0 count (test code = 785-6) Erythrocyte mean corpuscular 32.9 g/dL 31.5-35.7 hemoglobin concentration [Mass/volume] by Automated count (test code = 786-4) Erythrocyte distribution width 13.5 % 11.7-15.4 [Ratio] by Automated count (test code = 788-0) Platelets [#/volume] in Blood 334 x10e3/uL 150-450 by Automated count (test code = 777-3) Neutrophils/100 leukocytes in 64 % not estab. Blood by Automated count (test code = 770-8) Lymphocytes/100 leukocytes in 28 % not estab. Blood by Automated count (test code = 736-9) Monocytes/100 leukocytes in 7 % not estab. Blood by Automated count (test code = 5905-5) Eosinophils/100 leukocytes in 1 % not estab. Blood by Automated count (test code = 713-8) Basophils/100 leukocytes in 0 % not estab. Blood by Automated count (test code = 706-2) immature cells (test code = pre sales architect immature cells) Neutrophils [#/volume] in Blood 5.8 x10e3/uL 1.4-7.0 by Automated count (test code = 751-8) Lymphocytes [#/volume] in Blood 2.6 x10e3/uL 0.7-3.1 by Automated count (test code = 731-0) Monocytes [#/volume] in Blood 0.7 x10e3/uL 0.1-0.9 by Automated count (test code = 742-7) Eosinophils [#/volume] in Blood 0.1 x10e3/uL 0.0-0.4 by Automated count (test code = 711-2) Basophils [#/volume] in Blood 0.0 x10e3/uL 0.0-0.2 by Automated count (test code = 704-7) Immature granulocytes/100 0 % not estab. leukocytes in Blood by Automated count (test code = 79329-3) Immature granulocytes 0.0 x10e3/uL 0.0-0.1 [#/volume] in Blood by Automated count (test code = 28312-8) Nucleated erythrocytes/100 pre sales architect leukocytes [Ratio] in Blood by Automated count (test code = 08653-5) Morphology [Interpretation] in pre sales architect Blood Narrative (test code = 55408-8) [facility] flu (A+B)2021-06-04 09:41:00 Test Item Value Reference Range Interpretation Comments FLU A (test code = FLU A) negative FLU B (test code = FLU B) negative [facility] strep group A, [id number] 09:41:00 Test Item Value Reference Range Interpretation Comments Strep (test code = Strep) positive [facility]ARS-CoV-2 (COVID-19) Ag [Presence] in Respiratory specimen by Rapid [id number] 09:40:00 Test Item Value Reference Range Interpretation Comments SARS CoV 2 (test code = SARS CoV 2) negative [facility] T4 and TSH panel - Serum or Plasma 2021-03-26 00:00:00 Test Item Value Reference Range Interpretation Comments Thyrotropin [Units/volume] in 1.310 uIU/mL 0.450-4.500 Serum or Plasma by Detection limit <= 0.005 mIU/L (test code = 67178-8) Thyroxine (T4) free 1.33 NG/dL [Mass/volume] in Serum or Plasma (test code = 3024-7) [facility] W Auto Differential panel - [id number] 00:00:00 Test Item Value Reference Range Interpretation Comments Leukocytes [#/volume] in Blood 9.3 x10e3/uL 3.4-10.8 by Automated count (test code = 6690-2) Erythrocytes [#/volume] in 4.42 x10e6/uL Blood by Automated count (test code = 789-8) Hemoglobin [Mass/volume] in 12.7 g/dL Blood (test code = 718-7) Hematocrit [Volume Fraction] of 37.6 % Blood by Automated count (test code = 4544-3) Erythrocyte mean corpuscular 85 fL volume [Entitic volume] by Automated count (test code = 787-2) Erythrocyte mean corpuscular 28.7 pg hemoglobin [Entitic mass] by Automated count (test code = 785-6) Erythrocyte mean corpuscular 33.8 g/dL hemoglobin concentration [Mass/volume] by Automated count (test code = 786-4) Erythrocyte distribution width 13.5 % [Ratio] by Automated count (test code = 788-0) Platelets [#/volume] in Blood 332 x10e3/uL 150-450 by Automated count (test code = 777-3) Neutrophils/100 leukocytes in 68 % not estab. Blood by Automated count (test code = 770-8) Lymphocytes/100 leukocytes in 24 % not estab. Blood by Automated count (test code = 736-9) Monocytes/100 leukocytes in 6 % not estab. Blood by Automated count (test code = 5905-5) Eosinophils/100 leukocytes in 2 % not estab. Blood by Automated count (test code = 713-8) Basophils/100 leukocytes in 0 % not estab. Blood by Automated count (test code = 706-2) immature cells (test code = pre sales architect immature cells) Neutrophils [#/volume] in Blood 6.2 x10e3/uL by Automated count (test code = 751-8) Lymphocytes [#/volume] in Blood 2.3 x10e3/uL by Automated count (test code = 731-0) Monocytes [#/volume] in Blood 0.6 x10e3/uL by Automated count (test code = 742-7) Eosinophils [#/volume] in Blood 0.2 x10e3/uL by Automated count (test code = 711-2) Basophils [#/volume] in Blood 0.0 x10e3/uL by Automated count (test code = 704-7) Immature granulocytes/100 0 % not estab. leukocytes in Blood by Automated count (test code = 34394-8) Immature granulocytes 0.0 x10e3/uL [#/volume] in Blood by Automated count (test code = 11194-7) Nucleated erythrocytes/100 pre sales architect leukocytes [Ratio] in Blood by Automated count (test code = 73426-5) Morphology [Interpretation] in pre sales architect Blood Narrative (test code = 84009-9) [facility] 2000 panel - Serum or [id number] 00:00:00 Test Item Value Reference Range Interpretation Comments Glucose [Mass/volume] in Serum or 92 mg/dL 65-99 Plasma (test code = 2345-7) Urea nitrogen [Mass/volume] in 9 mg/dL Serum or Plasma (test code = 3094-0) Creatinine [Mass/volume] in Serum 0.44 mg/dL or Plasma (test code = 2160-0) Glomerular filtration rate/1.73 sq tnp M.predicted among non-blacks [Volume Rate/Area] in Serum, Plasma or Blood by Creatinine-based formula (CKD-EPI) (test code = 80631-4) Glomerular filtration rate/1.73 sq tnp M.predicted among blacks [Volume Rate/Area] in Serum, Plasma or Blood by Creatinine-based formula (CKD-EPI) (test code = 74873-3) Urea nitrogen/Creatinine [Mass 20 Ratio] in Serum or Plasma (test code = 3097-3) Sodium [Moles/volume] in Serum or 141 mmol/L 134-144 Plasma (test code = 2951-2) Potassium [Moles/volume] in Serum 4.6 mmol/L 3.5-5.2 or Plasma (test code = 2823-3) Chloride [Moles/volume] in Serum 104 mmol/L 96-106 or Plasma (test code = 2075-0) Carbon dioxide, total 25 mmol/L 20-29 [Moles/volume] in Serum or Plasma (test code = 2027-9) Calcium [Mass/volume] in Serum or 9.2 mg/dL Plasma (test code = 32064-9) Protein [Mass/volume] in Serum or 6.3 g/dL 6.0-8.5 Plasma (test code = 2885-2) Albumin [Mass/volume] in Serum or 4.5 g/dL 3.8-4.8 Plasma (test code = 1751-7) Globulin [Mass/volume] in Serum by 1.8 g/dL 1.5-4.5 calculation (test code = 15073-9) Albumin/Globulin [Mass Ratio] in 2.5 1.2-2.2 H Serum or Plasma (test code = 1759-0) Bilirubin.total [Mass/volume] in 0.6 mg/dL 0.0-1.2 Serum or Plasma (test code = 1975-2) Alkaline phosphatase [Enzymatic 108 IU/L 48-121 activity/volume] in Serum or Plasma (test code = 6768-6) Aspartate aminotransferase 22 IU/L 0-40 [Enzymatic activity/volume] in Serum or Plasma (test code = 1920-8) Alanine aminotransferase 22 IU/L [Enzymatic activity/volume] in Serum or Plasma (test code = 1742-6) [facility] - Serum or [id number] 00:00:00 Test Item Value Reference Range Interpretation Comments Cholesterol [Mass/volume] in Serum 156 mg/dL or Plasma (test code = 2093-3) Triglyceride [Mass/volume] in Serum 112 mg/dL or Plasma (test code = 2571-8) Cholesterol in HDL [Mass/volume] in 67 mg/dL >39 Serum or Plasma (test code = 2085-9) Cholesterol in VLDL [Mass/volume] 20 mg/dL 5-40 in Serum or Plasma by calculation (test code = 34165-6) Cholesterol in LDL [Mass/volume] in 69 mg/dL Serum or Plasma by calculation (test code = 02543-8) Laboratory comment [Text] in Report pre sales architect Narrative (test code = 58163-2) [facility]25-Hydroxyvitamin D3+25-Hydroxyvitamin D2 [Mass/volume] in Serum or [id number] 00:00:00 Test Item Value Reference Range Interpretation Comments 25-Hydroxyvitamin 30.2 NG/mL 30.0-100.0 D3+25-Hydroxyvitamin D2 [Mass/volume] in Serum or Plasma (test code = 06919-4) [facility] - Serum or Plasma 2021-03-26 00:00:00 Test Item Value Reference Range Interpretation Comments Thyrotropin [Units/volume] in 1.310 uIU/mL 0.450-4.500 Serum or Plasma by Detection limit <= 0.005 mIU/L (test code = 50713-3) Thyroxine (T4) free 1.33 NG/dL [Mass/volume] in Serum or Plasma (test code = 3024-7) [facility] W Auto Differential panel - [id number] 00:00:00 Test Item Value Reference Range Interpretation Comments Leukocytes [#/volume] in Blood 9.3 x10e3/uL 3.4-10.8 by Automated count (test code = 6690-2) Erythrocytes [#/volume] in 4.42 x10e6/uL Blood by Automated count (test code = 789-8) Hemoglobin [Mass/volume] in 12.7 g/dL Blood (test code = 718-7) Hematocrit [Volume Fraction] of 37.6 % Blood by Automated count (test code = 4544-3) Erythrocyte mean corpuscular 85 fL volume [Entitic volume] by Automated count (test code = 787-2) Erythrocyte mean corpuscular 28.7 pg hemoglobin [Entitic mass] by Automated count (test code = 785-6) Erythrocyte mean corpuscular 33.8 g/dL hemoglobin concentration [Mass/volume] by Automated count (test code = 786-4) Erythrocyte distribution width 13.5 % [Ratio] by Automated count (test code = 788-0) Platelets [#/volume] in Blood 332 x10e3/uL 150-450 by Automated count (test code = 777-3) Neutrophils/100 leukocytes in 68 % not estab. Blood by Automated count (test code = 770-8) Lymphocytes/100 leukocytes in 24 % not estab. Blood by Automated count (test code = 736-9) Monocytes/100 leukocytes in 6 % not estab. Blood by Automated count (test code = 5905-5) Eosinophils/100 leukocytes in 2 % not estab. Blood by Automated count (test code = 713-8) Basophils/100 leukocytes in 0 % not estab. Blood by Automated count (test code = 706-2) immature cells (test code = pre sales architect immature cells) Neutrophils [#/volume] in Blood 6.2 x10e3/uL by Automated count (test code = 751-8) Lymphocytes [#/volume] in Blood 2.3 x10e3/uL by Automated count (test code = 731-0) Monocytes [#/volume] in Blood 0.6 x10e3/uL by Automated count (test code = 742-7) Eosinophils [#/volume] in Blood 0.2 x10e3/uL by Automated count (test code = 711-2) Basophils [#/volume] in Blood 0.0 x10e3/uL by Automated count (test code = 704-7) Immature granulocytes/100 0 % not estab. leukocytes in Blood by Automated count (test code = 21385-7) Immature granulocytes 0.0 x10e3/uL [#/volume] in Blood by Automated count (test code = 19180-4) Nucleated erythrocytes/100 pre sales architect leukocytes [Ratio] in Blood by Automated count (test code = 01062-8) Morphology [Interpretation] in pre sales architect Blood Narrative (test code = 66060-4) [facility] - Serum or [id number] 00:00:00 Test Item Value Reference Range Interpretation Comments Glucose [Mass/volume] in Serum or 92 mg/dL 65-99 Plasma (test code = 2345-7) Urea nitrogen [Mass/volume] in 9 mg/dL Serum or Plasma (test code = 3094-0) Creatinine [Mass/volume] in Serum 0.44 mg/dL or Plasma (test code = 2160-0) Glomerular filtration rate/1.73 sq tnp M.predicted among non-blacks [Volume Rate/Area] in Serum, Plasma or Blood by Creatinine-based formula (CKD-EPI) (test code = 88120-7) Glomerular filtration rate/1.73 sq tnp M.predicted among blacks [Volume Rate/Area] in Serum, Plasma or Blood by Creatinine-based formula (CKD-EPI) (test code = 44139-0) Urea nitrogen/Creatinine [Mass 20 Ratio] in Serum or Plasma (test code = 3097-3) Sodium [Moles/volume] in Serum or 141 mmol/L 134-144 Plasma (test code = 2951-2) Potassium [Moles/volume] in Serum 4.6 mmol/L 3.5-5.2 or Plasma (test code = 2823-3) Chloride [Moles/volume] in Serum 104 mmol/L 96-106 or Plasma (test code = 2075-0) Carbon dioxide, total 25 mmol/L 20-29 [Moles/volume] in Serum or Plasma (test code = 2027-9) Calcium [Mass/volume] in Serum or 9.2 mg/dL Plasma (test code = 43031-9) Protein [Mass/volume] in Serum or 6.3 g/dL 6.0-8.5 Plasma (test code = 2885-2) Albumin [Mass/volume] in Serum or 4.5 g/dL 3.8-4.8 Plasma (test code = 1751-7) Globulin [Mass/volume] in Serum by 1.8 g/dL 1.5-4.5 calculation (test code = 40122-4) Albumin/Globulin [Mass Ratio] in 2.5 1.2-2.2 H Serum or Plasma (test code = 1759-0) Bilirubin.total [Mass/volume] in 0.6 mg/dL 0.0-1.2 Serum or Plasma (test code = 1975-2) Alkaline phosphatase [Enzymatic 108 IU/L 48-121 activity/volume] in Serum or Plasma (test code = 6768-6) Aspartate aminotransferase 22 IU/L 0-40 [Enzymatic activity/volume] in Serum or Plasma (test code = 1920-8) Alanine aminotransferase 22 IU/L [Enzymatic activity/volume] in Serum or Plasma (test code = 1742-6) [facility] - Serum or [id number] 00:00:00 Test Item Value Reference Range Interpretation Comments Cholesterol [Mass/volume] in Serum 156 mg/dL or Plasma (test code = 2093-3) Triglyceride [Mass/volume] in Serum 112 mg/dL or Plasma (test code = 2571-8) Cholesterol in HDL [Mass/volume] in 67 mg/dL >39 Serum or Plasma (test code = 2085-9) Cholesterol in VLDL [Mass/volume] 20 mg/dL 5-40 in Serum or Plasma by calculation (test code = 43836-9) Cholesterol in LDL [Mass/volume] in 69 mg/dL Serum or Plasma by calculation (test code = 15998-6) Laboratory comment [Text] in Report pre sales architect Narrative (test code = 48884-4) [facility]25-Hydroxyvitamin D3+25-Hydroxyvitamin D2 [Mass/volume] in Serum or [id number] 00:00:00 Test Item Value Reference Range Interpretation Comments 25-Hydroxyvitamin 30.2 NG/mL 30.0-100.0 D3+25-Hydroxyvitamin D2 [Mass/volume] in Serum or Plasma (test code = 97643-1) [facility] 2 [id number] 20:11:03 Subacute to chronic appearing compressions with mild kyphosis upperthoracic spine. RL: 6200 CLINICAL HISTORY: h/o T4 and T5 compression fracture COMPARISON:none TECHNIQUE:XR SPINE THORACIC 2 VW performed. Technical Quality: Adequate FINDINGS:There is curvature of the spine convex to the right. Elevation righthemidiaphragm. Mild compression deformity, which may be subacute chronic T4and T5, without sclerosis or cortical irregularity. No paraspinal widening. [facility], Radiant Results Inft User - 02/19/2021 3:12 PM CDT CLINICAL HISTORY: h/o T4 and T5 compression fracture COMPARISON:noneTECHNIQUE:XR SPINE THORACIC 2 VW performed. Technical Quality: AdequateFINDINGS:There is curvature of the spine convex to the right. Elevation righthemidiaphragm. Mild compression deformity, which may be subacute chronic T4and T5, without sclerosis or cortical irregularity. No paraspinal widening.IMPRESSIONSubacute to chronic appearing compressions with mild kyphosis upperthoracic spine.RL: 6200 [facility] [id number] 19:12:231. Osteoarthritic changes are present at the bilateral hips withoutevidence for acute osseous abnormality. RL: 2831 ORDERING PHYSICIAN: MICHAEL LAZO SINGLE VIEW PELVIS, 2 VIEWS OF THE BILATERAL HIPS. DATE: ?02/19/2021 CLINICAL INDICATIONS: ?Fall with right hip pain COMPARISON: ?None. FINDINGS: ?Single frontal view pelvis demonstrates no evidence for acutefracture, subluxation or destructive osseous lesion. The ilioischial andiliopectineal lines are intact. Frontal and frog leg views of the bilateral hips demonstrate no evidencefor acute fracture, subluxation or destructive osseous lesion.Osteoarthritic changes are present the hips manifested as joint spacenarrowing with subchondral sclerosis and osteophyte formation. [facility],Radiant Results Inft User - 02/19/2021 2:13 PM CDT ORDERING PHYSICIAN: MICHAEL MCMANUS VIEW PELVIS, 2 VIEWS OF THE BILATERAL HIPS.DATE: 02/19/2021LINICAL INDICATIONS: Fall with right hip painCOMPARISON: None.FINDINGS: Single frontal view pelvis demonstrates no evidence for acutefracture, subluxation or destructive osseous lesion. The ilioischial andiliopectineal lines are intact.Frontal and frog leg views of the bilateral hipsdemonstrate no evidencefor acute fracture, subluxation or destructive osseous lesion.Osteoarthritic changes are present the hips manifested as joint spacenarrowing with subchondral sclerosis and osteoph yte formation.IMPRESSION1. Osteoarthritic changes are present at the bilateral hips withoutevidence for acute osseous abnormality.RL: 2831 [facility] 2 [id number] 18:53:491. ?No acute osseous injury. 2. Chronic- appearing compression fracture of L2. RL: 6214 End of Report EXAM: XR LUMBAR SPINE 2 VW ORDERING CLINICIAN: ? MICHAEL SULLIVAN HISTORY: Back pain. History L2 compression fracture. COMPARISON: none TECHNICAL QUALITY: Adequate FINDINGS:AP and lateral views of lumbar spine. There are 5 lumbar-type vertebralbodies. The osseous structures are demineralized. There is a chronicappearing compression fracture of L2 with approximately 40-50% loss ofcentral vertebral body height. There may be 1 mm of retropulsion of theposterior superior L2 endplate. Vertebral body height and alignment appearotherwise preserved. There is straightening of the normal lumbar lordosis.Disc space height is preserved. ?No acute fracture is identified. ?Tinyanterior osteophytes noted throughout the lumbar spine. There is facetarthropathy at L4-5 and L5-S1. The visualized pelvis appears unremarkable. [facility], Radiant Results Inft User - 02/19/2021 1:55 PM CDT EXAM: XR LUMBAR SPINE 2 VWORDERING CLINICIAN: MICHAEL BARRIGA HISTORY: Back pain. History L9dlhdshwyvta fracture.COMPARISON: noneTECHNICAL QUALITY: AdequateFINDINGS:AP and lateral views of lumbar spine. There are 5 lumbar-type vertebralbodies. The osseous structures are demineralized. There is a chronicappearing compression fracture of L2 with approximately 40-50% loss ofcentral vertebral body height. There may be 1 mm of retropulsion of theposterior superior L2 endplate. Vertebral body height and alignment appearotherwise preserved. There is straightening of the normal lumbar lordosis.Disc space height is preserved. No acute fracture is identified. Tinyanterior osteophytes noted throughout the lumbar spine. There is facetarthropathy at L4-5 and L5-S1. The visualized pelvis appears unrema rkable.IMPRESSION1. No acute osseous injury. 2. Chronic-appearing compression fracture of L2.RL: 6214End of Report [facility]2020-12-27 16:33:45FINDINGS/IMPRESSION : 1. Lumbar Spine L1-L4: The calculated total T-score is ?-0.4, and the Z-score is 1.5, which isnormal.The total bone mineral density is calculated at 1.150 g/cm2. This puts the patient at no increased risk for compression fractures. 2. Right Hip:The calculated T- score at the femoral neck is -1.8, and the Z-score is-0.1, osteopenia.The calculated total T-score is -0.7, and the Z-score is 0.8, which isnormal. The total bone mineral density is calculated at 0.921 g/cm2. There is increased risk for femoral neck fractures. 3. Left Hip:The calculated T-score at the femoral neck is -1.2, and the Z-score is 0.6,osteopenia.The calculated total T-score is -0.3, and the Z-score is 1.2, which isnormal. The total bone mineral density is calculated at 0.969 g/cm2. There is increased risk for femoral neck fractures. 4. Right Radius:The calculated T-score at the distal 33% of the right radius is -2.5, andthe Z-score ?-0.8, which is osteoporosis. The bone mineral density is calculated at 0.660 g/cm2. 4. Left Radius:The calculated T-score at the distal 33% of the left radius is -1.8, andtheZ-score ?-0.2, which is osteopenia. The bone mineral density is calculated at 0.720 g/cm2. EXAM: Dual-energy X-ray absorptiometry. HISTORY: L2 compression fracture Theron Azul is a 70 year old femalehad recent fragility fracture,Is here to do the BMD,Please evaluate the b/lhip,Lumbar spine .Thanks! COMPARISON: None. TECHNIQUE and FINDINGS: Bone densitometry of the lumbar spine, right and left hip, right and leftforearm was performed. WHO-definitions: T-score normal: +/- 1 SD around the meanosteopenia: >1 to 2.4 SD below the meanosteoporosis: >2.5 SD below the meanFracture risk doubles for each 1.5 SD below the mean. [facility], Radiant Results Inft User - 12/27/2020 11:34 AM CDTEXAM: Dual-energy X-ray absor ptiometry.HISTORY: L2 compression fracture Theron Azul is a 70 year old femalehad recent fragility fracture,Is here to do the BMD,Please evaluate the b/lhip,Lumbar spine .Thanks! COMPARISON: None.TECHNIQUE and FINDINGS:Bone densitometry of the lumbar spine, right and left hip, right and leftforearm was performed. WHO-definitions: T- scorenormal: +/- 1 SD around the meanosteopenia: >1 to 2.4 SD below the meanosteoporosis: >2.5 SD below the meanFracture risk doubles for each 1.5 SD below the mean. IMPRESSION FINDINGS/IMPRESSION :1. Lumbar Spine L1-L4: The calculated total T-score is - 0.4, and the Z-score is1.5, which isnormal.The total bone mineral density is calculated at 1.150 g/cm2. This puts the patient at no increased risk for compression fractures. 2. Right Hip:The calculated T-score at the femoralneck is -1.8, and the Z-score is-0.1, osteopenia.The calculated total T-score is -0.7, and the Z-score is 0.8, which isnormal. The total bone mineral density is calculated at 0.921 g/cm2. There is increased risk for femoral neck fractures.3. Left Hip:The calculated T-score at the femoral neck is -1.2,and the Z-score is 0.6,osteopenia.The calculated total T-score is -0.3, and the Z-score is 1.2, which isnormal. The total bone mineral density is calculated at 0.969 g/cm2. There is increased risk for femoral neck fractures.4. Right Radius:The calculated T-score at the distal 33% of the right radius is -2.5, andthe Z-score -0.8, which is osteoporosis. The bone mineral density is calculated at 0.660 g/ cm2. 4. Left Radius:The calculated T-score at the distal 33% of the left radius is -1.8, andthe Z-score -0.2, which is osteopenia. The bone mineral density is calculated at 0.720 g/cm2.[facility]DEX[facility]2020-12-27 16:33:45FINDINGS/IMPRESSION : 1. Lumbar Spine L1-L4: The calculated total T-score is ?-0.4, and the Z-score is 1.5, which isnormal.The total bone mineral density is calculated at 1.150 g/cm2. This puts the patient at no increased risk for compression fractures. 2. Right Hip:The calculated T- score at the femoral neck is -1.8, and the Z-score is-0.1, osteopenia.The calculated total T-score is -0.7, and the Z-score is 0.8, which isnormal. The total bone mineral density is calculated at 0.921 g/cm2. There is increased risk for femoral neck fractures. 3. Left Hip:The calculated T-score at the femoral neck is -1.2, and the Z-score is 0.6,osteopenia.The calculated total T-score is -0.3, and the Z-score is 1.2, which isnormal. The total bone mineral density is calculated at 0.969 g/cm2. There is increased risk for femoral neck fractures. 4. Right Radius:The calculated T-score at the distal 33% of the right radius is -2.5, andthe Z-score ?-0.8, which is osteoporosis. The bone mineral density is calculated at 0.660 g/cm2. 4. Left Radius:The calculated T-score at the distal 33% of the left radius is -1.8, andtheZ-score ?-0.2, which is osteopenia. The bone mineral density is calculated at 0.720 g/cm2. EXAM: Dual-energy X-ray absorptiometry. HISTORY: L2 compression fracture Theron Azul is a 70 year old femalehad recent fragility fracture,Is here to do the BMD,Please evaluate the b/lhip,Lumbar spine .Thanks! COMPARISON: None. TECHNIQUE and FINDINGS: Bone densitometry of the lumbar spine, right and left hip, right and leftforearm was performed. WHO-definitions: T-score normal: +/- 1 SD around the meanosteopenia: >1 to 2.4 SD below the meanosteoporosis: >2.5 SD below the meanFracture risk doubles for each 1.5 SD below the mean. [facility], Radiant Results Inft User - 12/27/2020 11:34 AM CDTEXAM: Dual-energy X-ray absor ptiometry.HISTORY: L2 compression fracture Theron Azul is a 70 year old femalehad recent fragility fracture,Is here to do the BMD,Please evaluate the b/lhip,Lumbar spine .Thanks! COMPARISON: None.TECHNIQUE and FINDINGS:Bone densitometry of the lumbar spine, right and left hip, right and leftforearm was performed. WHO-definitions: T- scorenormal: +/- 1 SD around the meanosteopenia: >1 to 2.4 SD below the meanosteoporosis: >2.5 SD below the meanFracture risk doubles for each 1.5 SD below the mean. IMPRESSION FINDINGS/IMPRESSION :1. Lumbar Spine L1-L4: The calculated total T-score is - 0.4, and the Z-score is1.5, which isnormal.The total bone mineral density is calculated at 1.150 g/cm2. This puts the patient at no increased risk for compression fractures. 2. Right Hip:The calculated T-score at the femoralneck is -1.8, and the Z-score is-0.1, osteopenia.The calculated total T-score is -0.7, and the Z-score is 0.8, which isnormal. The total bone mineral density is calculated at 0.921 g/cm2. There is increased risk for femoral neck fractures.3. Left Hip:The calculated T-score at the femoral neck is -1.2,and the Z-score is 0.6,osteopenia.The calculated total T-score is -0.3, and the Z-score is 1.2, which isnormal. The total bone mineral density is calculated at 0.969 g/cm2. There is increased risk for femoral neck fractures.4. Right Radius:The calculated T-score at the distal 33% of the right radius is -2.5, andthe Z-score -0.8, which is osteoporosis. The bone mineral density is calculated at 0.660 g/ cm2. 4. Left Radius:The calculated T-score at the distal 33% of the left radius is -1.8, andthe Z-score -0.2, which is osteopenia. The bone mineral density is calculated at 0.720 g/cm2.[facility] CenterUrinalysis macro (dipstick) panel - [id number] 09:04:00 Test Item Value Reference Range Interpretation Comments Leukocytes (test code = Moderate Leukocytes) Nitrite (test code = negative Nitrite) Urobilinogen (test code = .2 Urobilinogen) Protein (test code = Negative Protein) pH (test code = pH) 6.5 Blood (test code = Blood) Non-Hemolyzed: Trace Specific [place] (test 1.005 code = Specific [place]) Ketone (test code = Negative Ketone) Bilirubin (test code = Negative Bilirubin) Glucose (test code = Negative Glucose) Appearance (test code = Clear Appearance) Color (test code = Color) Pale Yellow [facility] GLUCOSE [id number] 14:30:00 Test Item Value Reference Range Interpretation Comments Gluc POC [place] (test code = Gluc POC 90 70-99 N [place]) [facility] GLUCOSE [id number] 14:30:00 Test Item Value Reference Range Interpretation Comments Gluc POC [place] (test code = Gluc POC 90 70-99 N [place]) [facility] GLUCOSE [id number] 09:43:00 Test Item Value Reference Range Interpretation Comments Gluc POC [place] (test code = Gluc POC 134 70-99 H [place]) [facility] GLUCOSE [id number] 09:43:00 Test Item Value Reference Range Interpretation Comments Comment1 (test code = Comment1) Notify RN/MD [facility] GLUCOSE [id number] 09:43:00 Test Item Value Reference Range Interpretation Comments Gluc POC [place] (test code = Gluc POC 134 70-99 H [place]) [facility] GLUCOSE [id number] 09:43:00 Test Item Value Reference Range Interpretation Comments Comment1 (test code = Comment1) [id number] 08:00:00 Test Item Value Reference Range Interpretation Comments Segs (test code = Segs) 64.4 45.0-75.0 N [facility] [id number] 08:00:00 Test Item Value Reference Range Interpretation Comments RDW (test code = RDW) 13.7 11.5-14.5 N [facility] [id number] 08:00:00 Test Item Value Reference Range Interpretation Comments MCHC (test code = MCHC) 33.2 32.0-36.0 N [facility] C[id number] 08:00:00 Test Item Value Reference Range Interpretation Comments WBC (test code = WBC) 8.8 3.7-10.4 N [facility] [id number] 08:00:00 Test Item Value Reference Range Interpretation Comments Platelet (test code = Platelet) 262 133-450 N [facility] [id number] 08:00:00 Test Item Value Reference Range Interpretation Comments MPV (test code = MPV) 8.5 7.4-10.4 N [facility] [id number] 08:00:00 Test Item Value Reference Range Interpretation Comments Hct (test code = Hct) 38.2 36.0-48.0 N [facility] CenterYvjinheIPKTHVVYOJ5945-88-56 08:00:00 Test Item Value Reference Range Interpretation Comments MCV (test code = MCV) 89.2 81.0-99.0 N [facility] [id number] 08:00:00 Test Item Value Reference Range Interpretation Comments Troponin-I (test code no gt See_Comment N [Auto mated message] The = Troponin-I) system which g enerated this result transmit nan reference range : <=0.40. The reference r dominic was not used to interpr et this result as alvarado l/abnormal. [facility] [id number] 08:00:00 Test Item Value Reference Range Interpretation Comments Total CK (test code = Total CK) 67 12-191 N [facility] [id number] 08:00:00 Test Item Value Reference Range Interpretation Comments CO2 (test code = CO2) 26 24-32 N [facility] CenterWhauxafWMQQLVBOJ9812-21-28 08:00:00 Test Item Value Reference Range Interpretation Comments eGFR (test code = eGFR) 114 [facility] [id number] 08:00:00 Test Item Value Reference Range Interpretation Comments BUN (test code = BUN) 12 7-22 N [facility] [id number] 08:00:00 Test Item Value Reference Range Interpretation Comments AGAP (test code = AGAP) 10.0 10.0-20.0 N [facility] CenterKzupqffFFRYZZVLC5705-50-34 08:00:00 Test Item Value Reference Range Interpretation Comments Calcium Lvl (test code = Calcium Lvl) 8.0 8.5-10.5 L [facility] CenterNyplhveVTSWCBZIF5715-91-59 08:00:00 Test Item Value Reference Range Interpretation Comments Glucose Lvl (test code = Glucose Lvl) 91 70-99 N [facility] CenterTwtbjnxQSAEDPVFG8365-06-75 08:00:00 Test Item Value Reference Range Interpretation Comments Potassium Lvl (test code = Potassium 4.0 3.5-5.1 N Lvl) [facility] CenterLjaqfyuMOIRKPTMS7826-94-62 08:00:00 Test Item Value Reference Range Interpretation Comments Sodium Lvl (test code = Sodium Lvl) 139 135-145 N [facility] CenterFfnslynIFGULPLUYC0272-16-61 08:00:00 Test Item Value Reference Range Interpretation Comments Hgb (test code = Hgb) 12.7 12.0-16.0 N [facility] CenterWekzujhSRQWRGQSP3047-76-91 08:00:00 Test Item Value Reference Range Interpretation Comments Chloride Lvl (test code = Chloride Lvl) 107 95-109 N [facility] CenterWmnwloiMFABCTMIN2420-71-52 08:00:00 Test Item Value Reference Range Interpretation Comments Creatinine Lvl (test code = Creatinine 0.4 0.5-1.4 L Lvl) [facility] CenterAzpmtgjFYXRVXQAZ2991-47-59 08:00:00 Test Item Value Reference Range Interpretation Comments Hgb A1C (test code = Hgb A1C) 5.7 [facility] CenterQmjrhumUFRXIZUID1017-89-81 08:00:00 Test Item Value Reference Range Interpretation Comments CHD Risk (test code = CHD Risk) 4.51 3.90-5.80 N [facility] CenterQixmqnpXQAEDIEKA9791-35-31 08:00:00 Test Item Value Reference Range Interpretation Comments LDL (test code = LDL) 153 See_Comment H [Auto mated message] The system which ge nerated this result transmit nan reference range : <=129. The reference range was not used to interpr et this result as alvarado l/abnormal. [facility] CenterSiypqmoLQQNKZDTX9060-38-95 08:00:00 Test Item Value Reference Range Interpretation Comments Chol (test code = Chol) 230 120-200 H [facility] CenterUmegrxjLJBIOIJBZ3221-13-86 08:00:00 Test Item Value Reference Range Interpretation Comments HDL (test code = HDL) 51 N [facility] CenterSmfgaoyDDGSHDVQM6513-16-97 08:00:00 Test Item Value Reference Range Interpretation Comments Trig (test code = 132 See_Comment N [Automate d message] The Trig) system which ge nerated this result transmit nan reference range : <=200. The reference range was not used to interpr et this result as alvarado l/abnormal. [facility] CenterBleoxpaQVJTYAAEWM5078-21-04 08:00:00 Test Item Value Reference Range Interpretation Comments Eosinophils (test code = 3.0 See_Comment N [A utomated message] The Eosinophils) system which ge nerated this result tra nsmitted reference range : <=4.0. The reference r dominic was not used to int erpret this result as normal/abnormal . [facility] CenterCldhaesTTIUCTKVBP1371-08-63 08:00:00 Test Item Value Reference Range Interpretation Comments Basophils (test code = 0.8 See_Comment N [Aut omated message] The Basophils) system which ge nerated this result tra nsmitted reference range : <=1.0. The reference r dominic was not used to int erpret this result as normal/abnormal . [facility] CenterQsfhsxgWSLUJAEQKQ9438-83-39 08:00:00 Test Item Value Reference Range Interpretation Comments MCH (test code = MCH) 29.6 pg 27.0-31.0 N [facility] CenterRbxynjbIHJTGVPBVY0688-53-74 08:00:00 Test Item Value Reference Range Interpretation Comments Monocytes (test code = Monocytes) 7.0 2.0-12.0 N [facility] CenterUrftusqAATELWMISA1885-17-09 08:00:00 Test Item Value Reference Range Interpretation Comments Basophils # (test code 0.1 See_Comment N [Aut omated message] The = Basophils #) system which generated this result tra nsmitted reference range : <=0.2. The reference r dominic was not used to int erpret this result as normal/abnormal . [facility] CenterMzphhweAFXNSREOWM9926-68-37 08:00:00 Test Item Value Reference Range Interpretation Comments Eosinophils # (test code 0.3 See_Comment N [A utomated message] The = Eosinophils #) system whic h generated this result tra nsmitted reference range : <=0.5. The reference r dominic was not used to int erpret this result as normal/abnormal . [facility] CenterAjddjukKIDUMBHOLN4550-91-30 08:00:00 Test Item Value Reference Range Interpretation Comments Lymphocytes # (test code = Lymphocytes 2.2 1.0-5.5 N #) [facility] CenterPxfbscmLXMNQDGDEY8923-55-90 08:00:00 Test Item Value Reference Range Interpretation Comments Segs-Bands # (test code = Segs-Bands #) 5.7 1.5-8.1 N [facility] CenterEfeypnyDTDILIBOFV4820-54-55 08:00:00 Test Item Value Reference Range Interpretation Comments Monocytes # (test code 0.6 See_Comment N [Aut omated message] The = Monocytes #) system which generated this result tra nsmitted reference range : <=0.8. The reference r dominic was not used to int erpret this result as normal/abnormal . [facility] CenterDdiwzamZOMYIQAMGD5880-54-18 08:00:00 Test Item Value Reference Range Interpretation Comments Lymphocytes (test code = Lymphocytes) 24.8 20.0-40.0 N [facility] CenterGfaswenLENXZNDBPB0726-49-95 08:00:00 Test Item Value Reference Range Interpretation Comments Segs (test code = Segs) 64.4 45.0-75.0 N [facility] CenterIzenwouFAZYXHGYVD7381-59-27 08:00:00 Test Item Value Reference Range Interpretation Comments RDW (test code = RDW) 13.7 11.5-14.5 N [facility] CenterRlmdifoBEEVKMXZOR2088-00-00 08:00:00 Test Item Value Reference Range Interpretation Comments MCHC (test code = MCHC) 33.2 32.0-36.0 N [facility] CenterIurovwuDQGECVPJTT0051-60-88 08:00:00 Test Item Value Reference Range Interpretation Comments RBC (test code = RBC) 4.28 4.20-5.40 N [facility] CenterShhjgtnDSAAFWTRYM7356-15-06 08:00:00 Test Item Value Reference Range Interpretation Comments WBC (test code = WBC) 8.8 3.7-10.4 N [facility] CenterBqhatuyUTSAWXFKRD7888-44-01 08:00:00 Test Item Value Reference Range Interpretation Comments Platelet (test code = Platelet) 262 133-450 N [facility] CenterIbnzfqbYJZQKHBLEB8381-60-76 08:00:00 Test Item Value Reference Range Interpretation Comments MPV (test code = MPV) 8.5 7.4-10.4 N [facility] CenterYiinphkYXZOVOXINH1645-74-36 08:00:00 Test Item Value Reference Range Interpretation Comments Hct (test code = Hct) 38.2 36.0-48.0 N [facility] CenterVtaoycbQQYEWNYTHN2749-19-00 08:00:00 Test Item Value Reference Range Interpretation Comments MCV (test code = MCV) 89.2 81.0-99.0 N [facility] CenterAolrbzmWWSCEMORBJ7511-66-19 08:00:00 Test Item Value Reference Range Interpretation Comments Hgb (test code = Hgb) 12.7 12.0-16.0 N [facility] CenterHnpeiicTFQOWSAKEB4951-57-71 08:00:00 Test Item Value Reference Range Interpretation Comments MCH (test code = MCH) 29.6 pg 27.0-31.0 N [facility] CenterPfkbjarDIABSIDVCS9584-18-66 08:00:00 Test Item Value Reference Range Interpretation Comments RBC (test code = RBC) 4.28 4.20-5.40 N [facility] CenterLlehwvjJDAULIUTJ5880-20-38 08:00:00 Test Item Value Reference Range Interpretation Comments Troponin-I (test code no gt See_Comment N [Auto mated message] The = Troponin-I) system which g enerated this result transmit nan reference range : <=0.40. The reference r dominic was not used to interpr et this result as alvarado l/abnormal. [facility] CenterCayadumRUNPFUYRQ0861-72-18 08:00:00 Test Item Value Reference Range Interpretation Comments Total CK (test code = Total CK) 67 12-191 N [facility] CenterAtssoidAWPPGHGFE6372-47-23 08:00:00 Test Item Value Reference Range Interpretation Comments CO2 (test code = CO2) 26 24-32 N [facility] CenterKpelcppTXFUTGTWK2808-09-19 08:00:00 Test Item Value Reference Range Interpretation Comments eGFR (test code = eGFR) 114 [facility] CenterVivumggFRDGYHBQM8646-60-77 08:00:00 Test Item Value Reference Range Interpretation Comments BUN (test code = BUN) 12 7-22 N [facility] CenterRvsyzsfGNQOVXCSI5300-59-35 08:00:00 Test Item Value Reference Range Interpretation Comments AGAP (test code = AGAP) 10.0 10.0-20.0 N [facility] CenterDqwrsuvYKSEADQRN6063-45-63 08:00:00 Test Item Value Reference Range Interpretation Comments Calcium Lvl (test code = Calcium Lvl) 8.0 8.5-10.5 L [facility] CenterFszatteBIVVVOZZY3817-70-53 08:00:00 Test Item Value Reference Range Interpretation Comments Glucose Lvl (test code = Glucose Lvl) 91 70-99 N [facility] CenterVvsuarvBJZKAFXRF2324-52-14 08:00:00 Test Item Value Reference Range Interpretation Comments Potassium Lvl (test code = Potassium 4.0 3.5-5.1 N Lvl) [facility] CenterFjptugfMMXCZSPLK6891-06-69 08:00:00 Test Item Value Reference Range Interpretation Comments Sodium Lvl (test code = Sodium Lvl) 139 135-145 N [facility] CenterEepgrbnLHIGGASDQ9533-72-43 08:00:00 Test Item Value Reference Range Interpretation Comments Chloride Lvl (test code = Chloride Lvl) 107 95-109 N [facility] CenterImuhmvyCYYQMJBGF7142-04-97 08:00:00 Test Item Value Reference Range Interpretation Comments Creatinine Lvl (test code = Creatinine 0.4 0.5-1.4 L Lvl) [facility] CenterTrfbixdXAJGXQNNB2306-05-46 08:00:00 Test Item Value Reference Range Interpretation Comments Hgb A1C (test code = Hgb A1C) 5.7 [facility] CenterBahsmnyXUAJFYYQG8566-66-46 08:00:00 Test Item Value Reference Range Interpretation Comments CHD Risk (test code = CHD Risk) 4.51 3.90-5.80 N [facility] CenterOsgmbxnANOVELYNL9760-76-95 08:00:00 Test Item Value Reference Range Interpretation Comments LDL (test code = LDL) 153 See_Comment H [Auto mated message] The system which ge nerated this result transmit nan reference range : <=129. The reference range was not used to interpr et this result as alvarado l/abnormal. [facility] CenterPtqeaewIYGPUIITT5338-33-97 08:00:00 Test Item Value Reference Range Interpretation Comments Chol (test code = Chol) 230 120-200 H [facility] CenterYcmudyeHWNXNDAJL0652-82-64 08:00:00 Test Item Value Reference Range Interpretation Comments HDL (test code = HDL) 51 N [facility] CenterOznxqefITDGPQGPN6240-02-67 08:00:00 Test Item Value Reference Range Interpretation Comments Trig (test code = 132 See_Comment N [Automate d message] The Trig) system which ge nerated this result transmit nan reference range : <=200. The reference range was not used to interpr et this result as alvarado l/abnormal. [facility]SknhdvqJVWBRGQABA1577-88-75 08:00:00 Test Item Value Reference Range Interpretation Comments Eosinophils (test code = 3.0 See_Comment N [A utomated message] The Eosinophils) system which ge nerated this result tra nsmitted reference range : <=4.0. The reference r dominic was not used to int erpret this result as normal/abnormal . [facility] CenterWxxrjpaIXHOOSHVLY8565-51-93 08:00:00 Test Item Value Reference Range Interpretation Comments Basophils (test code = 0.8 See_Comment N [Aut omated message] The Basophils) system which ge nerated this result tra nsmitted reference range : <=1.0. The reference r dominic was not used to int erpret this result as normal/abnormal . [facility] CenterVdampwzWEMUDKPYKG9534-49-61 08:00:00 Test Item Value Reference Range Interpretation Comments Monocytes (test code = Monocytes) 7.0 2.0-12.0 N [facility] CenterVfvdjblLORCQLEBMT2527-50-12 08:00:00 Test Item Value Reference Range Interpretation Comments Basophils # (test code 0.1 See_Comment N [Aut omated message] The = Basophils #) system which generated this result tra nsmitted reference range : <=0.2. The reference r dominic was not used to int erpret this result as normal/abnormal . [facility] CenterBjgvzbnORWJUPSMKR0264-71-26 08:00:00 Test Item Value Reference Range Interpretation Comments Eosinophils # (test code 0.3 See_Comment N [A utomated message] The = Eosinophils #) system whic h generated this result tra nsmitted reference range : <=0.5. The reference r dominic was not used to int erpret this result as normal/abnormal . [facility] CenterImzlwtlVGEJJQDNNT1344-69-58 08:00:00 Test Item Value Reference Range Interpretation Comments Lymphocytes # (test code = Lymphocytes 2.2 1.0-5.5 N #) [facility] CenterWiztgdgYRTVHLIIGB5858-76-90 08:00:00 Test Item Value Reference Range Interpretation Comments Segs-Bands # (test code = Segs-Bands #) 5.7 1.5-8.1 N [facility] CenterWczflyzJFTUYTWCZE2100-14-12 08:00:00 Test Item Value Reference Range Interpretation Comments Monocytes # (test code 0.6 See_Comment N [Aut omated message] The = Monocytes #) system which generated this result tra nsmitted reference range : <=0.8. The reference r dominic was not used to int erpret this result as normal/abnormal . [facility] CenterZpazzmnZURXHUXMKA0029-55-35 08:00:00 Test Item Value Reference Range Interpretation Comments Lymphocytes (test code = Lymphocytes) 24.8 20.0-40.0 N [facility] GLUCOSE UZWIRZW4724-91-62 05:12:00 Test Item Value Reference Range Interpretation Comments Comment1 (test code = Comment1) Notify RN/ [facility] GLUCOSE ZVABCPA6919-39-68 05:12:00 Test Item Value Reference Range Interpretation Comments Gluc POC Lifscn (test code = Gluc POC 86 70-99 N Lifscn) [facility] GLUCOSE KDHEIMW8363-90-11 05:12:00 Test Item Value Reference Range Interpretation Comments Comment1 (test code = Comment1) Notify RN/ [facility] GLUCOSE BWXDGBH3124-04-22 05:12:00 Test Item Value Reference Range Interpretation Comments Gluc POC Lifscn (test code = Gluc POC 86 70-99 N Lifscn) [facility] CenterQnxolxwIDPNEDQFV2984-61-80 21:25:00 Test Item Value Reference Range Interpretation Comments eGFR (test code = eGFR) 100 [facility] CenterFshurgiQGMBYFVIQ6321-81-84 21:25:00 Test Item Value Reference Range Interpretation Comments POC Creatinine (test code = POC 0.6 0.5-1.4 N Creatinine) [facility] CenterLnsjpkxCIQVZYISG0902-13-36 21:25:00 Test Item Value Reference Range Interpretation Comments eGFR (test code = eGFR) 100 [facility] CenterPyektubTGCSKCZQQ6835-21-63 21:25:00 Test Item Value Reference Range Interpretation Comments POC Creatinine (test code = POC 0.6 0.5-1.4 N Creatinine) [facility]lvahvaUBGXUNUDLW1620-25-30 21:20:00 Test Item Value Reference Range Interpretation Comments UA Urobilinogen (test code *NA*(09/13/2012 0.1-1.0 = UA Urobilinogen) 15:20:00) [facility]RwgkdqdDFRGXLPZPA8940-28-24 21:20:00 Test Item Value Reference Range Interpretation Comments UA Mucus (test code = Few /LPF UA Mucus) *NA*(09/13/2012 15:20:00) [facility]TwqomihPLBNGSERTI4039-12-72 21:20:00 Test Item Value Reference Range Interpretation Comments UA RBC (test code = 1 See_Comment N [Automa nan message] The UA RBC) system which ge nerated this result transmit nan reference range : <=2. The reference range was not used to interpr et this result as alvarado l/abnormal. [facility]woodZckzfvvMWEKYJHDBS2643-99-45 21:20:00 Test Item Value Reference Range Interpretation Comments UA Bacteria (test code Occasional /HPF = UA Bacteria) *NA*(09/13/2012 15:20:00) [facility]woodZwyimoxQEYDLPTQPR5087-09-72 21:20:00 Test Item Value Reference Range Interpretation Comments UA Spec Grav (test code = UA Spec Grav) 1.006 N [facility]VempgomHNPIJUMMSL0018-63-39 21:20:00 Test Item Value Reference Range Interpretation Comments UA Glucose (test code Negative mg/dL = UA Glucose) *NA*(09/13/2012 15:20:00) [facility]woodBwygasuZRZHZIDLBE2614-21-44 21:20:00 Test Item Value Reference Range Interpretation Comments UA pH (test code = UA pH) 6.5 5.0-8.0 N [facility] NortheastFmpqwsnXRSGAUQDVL7513-20-68 21:20:00 Test Item Value Reference Range Interpretation Comments UA Ketones (test code Negative mg/dL = UA Ketones) *NA*(09/13/2012 15:20:00) [facility]MiejjpnLBALLVMPSH0619-34-33 21:20:00 Test Item Value Reference Range Interpretation Comments UA Bili (test code = Negative *NA*(09/13/2012 UA Bili) 15:20:00) [facility]QpuxgiqUDOZBOTDSP4578-81-66 21:20:00 Test Item Value Reference Range Interpretation Comments UA Protein (test code Negative mg/dL N = UA Protein) (09/13/2012 15:20:00) [facility]DdypnhnHHXJQIZUSN9762-73-69 21:20:00 Test Item Value Reference Range Interpretation Comments UA Leuk Est (test code Trace *ABN*(09/13/2012 A = UA Leuk Est) 15:20:00) [facility]UkkgekgLAJGWLAYEX5134-82-96 21:20:00 Test Item Value Reference Range Interpretation Comments UA Blood (test code = Negative (09/13/2012 N UA Blood) 15:20:00) [facility]DfsdjlmZPTLEJCHBI5142-10-33 21:20:00 Test Item Value Reference Range Interpretation Comments UA Sq Epi (test code = Few /LPF UA Sq Epi) *NA*(09/13/2012 15:20:00) [facility]HdawncfCIKMZIZMSK6592-82-19 21:20:00 Test Item Value Reference Range Interpretation Comments UA WBC (test code = 1 See_Comment N [Automa nan message] The UA WBC) system which ge nerated this result transmit nan reference range : <=5. The reference range was not used to interpr et this result as alvarado l/abnormal. [facility] NortheastHnaiafdURMVPKPOUQ0210-23-85 21:20:00 Test Item Value Reference Range Interpretation Comments UA Nitrite (test code Negative (09/13/2012 N = UA Nitrite) 15:20:00) [facility]MblusbnTUZOKMJLIQ9158-36-20 21:20:00 Test Item Value Reference Range Interpretation Comments UA Color (test code = Light Yellow UA Color) *NA*(09/13/2012 15:20:00) [facility]woodHpftretJKMTOYLCMV9449-43-37 21:20:00 Test Item Value Reference Range Interpretation Comments UA Turbidity (test code = Clear (09/13/2012 N UA Turbidity) 15:20:00) [facility]VnywcccStvjyqxsodyu9629-01-90 21:20:00 Test Item Value Reference Range Interpretation Comments Culture: Urine (test code = Culture: Urine) [facility]PqlsnmuFPPLBHNQGT4148-40-24 21:20:00 Test Item Value Reference Range Interpretation Comments UA Urobilinogen (test code *NA*(09/13/2012 0.1-1.0 = UA Urobilinogen) 15:20:00) [facility]RzpfdsrJKZTJCGAXX3209-76-75 21:20:00 Test Item Value Reference Range Interpretation Comments UA Mucus (test code = Few /LPF UA Mucus) *NA*(09/13/2012 15:20:00) [facility]WtmwopkKCKRKLQFFX5207-90-64 21:20:00 Test Item Value Reference Range Interpretation Comments UA RBC (test code = 1 See_Comment N [Automa nan message] The UA RBC) system which ge nerated this result transmit nan reference range : <=2. The reference range was not used to interpr et this result as alvarado l/abnormal. [facility] NortheastFzrfmnyTIGVMNMPUL8515-50-86 21:20:00 Test Item Value Reference Range Interpretation Comments UA Bacteria (test code Occasional /HPF = UA Bacteria) *NA*(09/13/2012 15:20:00) [facility]GtnnrdiMBYDSHSWQL8795-50-89 21:20:00 Test Item Value Reference Range Interpretation Comments UA Spec Grav (test code = UA Spec Grav) 1.006 N [facility]woodPvnuvqwTJOYLAJKXP5258-56-74 21:20:00 Test Item Value Reference Range Interpretation Comments UA Glucose (test code Negative mg/dL = UA Glucose) *NA*(09/13/2012 15:20:00) [facility]woodKilunlnSXVGHMRLZH2560-03-62 21:20:00 Test Item Value Reference Range Interpretation Comments UA pH (test code = UA pH) 6.5 5.0-8.0 N [facility]woodLnruvszZHTFOGXIUN4819-79-07 21:20:00 Test Item Value Reference Range Interpretation Comments UA Ketones (test code Negative mg/dL = UA Ketones) *NA*(09/13/2012 15:20:00) [facility]HpfvufeRJFZDAWGFG8970-32-70 21:20:00 Test Item Value Reference Range Interpretation Comments UA Bili (test code = Negative *NA*(09/13/2012 UA Bili) 15:20:00) [facility]CuupfsvSZMEWABSKW1206-31-22 21:20:00 Test Item Value Reference Range Interpretation Comments UA Protein (test code Negative mg/dL N = UA Protein) (09/13/2012 15:20:00) [facility] NortheastBszkmqxHMXJDYQCZS2789-78-09 21:20:00 Test Item Value Reference Range Interpretation Comments UA Leuk Est (test code Trace *ABN*(09/13/2012 A = UA Leuk Est) 15:20:00) [facility] NortheastMakstfbBUMHARWDVX5382-87-54 21:20:00 Test Item Value Reference Range Interpretation Comments UA Blood (test code = Negative (09/13/2012 N UA Blood) 15:20:00) [facility] NortheastLuwklphJPGYTECWBY7461-00-08 21:20:00 Test Item Value Reference Range Interpretation Comments UA Sq Epi (test code = Few /LPF UA Sq Epi) *NA*(09/13/2012 15:20:00) [facility] NortheastBhthpecJWMMZBPBHO6383-74-31 21:20:00 Test Item Value Reference Range Interpretation Comments UA WBC (test code = 1 See_Comment N [Automa nan message] The UA WBC) system which ge nerated this result transmit nan reference range : <=5. The reference range was not used to interpr et this result as alvarado l/abnormal. [facility] NortheastNlrghdwKRPDFKQKPM1189-85-18 21:20:00 Test Item Value Reference Range Interpretation Comments UA Nitrite (test code Negative (09/13/2012 N = UA Nitrite) 15:20:00) [facility] NortheastDwazfuaOTLKFRETUA6611-30-71 21:20:00 Test Item Value Reference Range Interpretation Comments UA Color (test code = Light Yellow UA Color) *NA*(09/13/2012 15:20:00) [facility] NortheastTmhcmciFDPVFTNKUZ7749-26-70 21:20:00 Test Item Value Reference Range Interpretation Comments UA Turbidity (test code = Clear (09/13/2012 N UA Turbidity) 15:20:00) [facility] CampusFouwrhuBpynxolbpfsa6998-74-68 21:20:00 Test Item Value Reference Range Interpretation Comments Culture: Urine (test code = Culture: Urine) [facility]YsnlpxzPZQSDZFAZO5934-44-12 21:10:00 Test Item Value Reference Range Interpretation Comments CDC-HIV 1/2 Ab (test Negative *NA*(09/13/2012 code = CDC-HIV 1/2 15:10:00) Ab) [facility] CenterRwwxjaiCMJUFOBELF3100-49-70 21:10:00 Test Item Value Reference Range Interpretation Comments CDC-HIV 1/2 Ab (test Negative *NA*(09/13/2012 code = CDC-HIV 1/2 15:10:00) Ab) [facility] CenterEcleoruWAWRXEPCP9798-31-99 20:46:00 Test Item Value Reference Range Interpretation Comments Troponin-T (test code no gt See_Comment N [Auto mated message] The = Troponin-T) system which g enerated this result transmit nan reference range : <=0.100. The reference r dominic was not used to interpr et this result as alvarado l/abnormal. [facility] CenterZzfkdulPRSVOHJZI0736-28-87 20:46:00 Test Item Value Reference Range Interpretation Comments Total CK (test code = Total CK) 90 12-191 N [facility] CenterClpsxeoKPGLNDKQQ3226-27-17 20:46:00 Test Item Value Reference Range Interpretation Comments Troponin-I (test code no gt See_Comment N [Auto mated message] The = Troponin-I) system which g enerated this result transmit nan reference range : <=0.40. The reference r dominic was not used to interpr et this result as alvarado l/abnormal. [facility] CenterOjhdwynIEEOSRGMD1357-76-63 20:46:00 Test Item Value Reference Range Interpretation Comments Troponin-T (test code no gt See_Comment N [Auto mated message] The = Troponin-T) system which g enerated this result transmit nan reference range : <=0.100. The reference r dominic was not used to interpr et this result as alvarado l/abnormal. [facility] CenterNgyjeacOHJYXXXTA0054-64-75 20:46:00 Test Item Value Reference Range Interpretation Comments Total CK (test code = Total CK) 90 12-191 N [facility] CenterDiplrfhNUVARBIQU0847-21-23 20:46:00 Test Item Value Reference Range Interpretation Comments Troponin-I (test code no gt See_Comment N [Auto mated message] The = Troponin-I) system which g enerated this result transmit nan reference range : <=0.40. The reference r dominic was not used to interpr et this result as alvarado l/abnormal. [facility]woodAcowmrbOYIUOTWOLN5690-86-23 20:29:00 Test Item Value Reference Range Interpretation Comments UA Sq Epi (test code = Few /LPF (09/13/2012 N UA Sq Epi) 14:29:00) [facility]woodSuiooukAKCHYUMOKN8357-91-44 20:29:00 Test Item Value Reference Range Interpretation Comments UA Mucus (test code = Few /LPF (09/13/2012 N UA Mucus) 14:29:00) [facility] KingwoodZylwglbMMLDVJEYHE9949-81-98 20:29:00 Test Item Value Reference Range Interpretation Comments UA WBC (test code = 3 See_Comment [Automa nan message] The UA WBC) system which ge nerated this result transmit nan reference range : <=5. The reference range was not used to interpr et this result as alvarado l/abnormal. [facility] CenterXdiuqdsJCQQBFEAOV4103-70-39 20:29:00 Test Item Value Reference Range Interpretation Comments Micro? (test code = Performed (09/13/2012 N Micro?) 14:29:00) [facility]woodHwzxxldRBWWARLXOE9802-22-29 20:29:00 Test Item Value Reference Range Interpretation Comments UA Glucose (test code Negative (09/13/2012 N = UA Glucose) 14:29:00) [facility]woodAzkhmmjKLIJWTGKOJ6726-93-07 20:29:00 Test Item Value Reference Range Interpretation Comments UA Blood (test code = Small *ABN*(09/13/2012 A UA Blood) 14:29:00) [facility] CenterBebjoltLQPYMDNASL3334-43-71 20:29:00 Test Item Value Reference Range Interpretation Comments UA Bili (test code = Negative *NA*(09/13/2012 UA Bili) 14:29:00) [facility] CenterIkqgxyeMXITBMDKKQ6154-21-46 20:29:00 Test Item Value Reference Range Interpretation Comments UA Urobilinogen (test code = UA 0.2 0.1-1.0 N Urobilinogen) [facility]woodYnryrqkUJNMCJQTYN2124-40-24 20:29:00 Test Item Value Reference Range Interpretation Comments UA Nitrite (test code Negative (09/13/2012 N = UA Nitrite) 14:29:00) [facility]woodCzcsqmlXUROXQCMBV8523-23-78 20:29:00 Test Item Value Reference Range Interpretation Comments UA Leuk Est (test Negative (09/13/2012 N code = UA Leuk Est) 14:29:00) [facility]CnybxsxIRAWCPUFAE8663-89-43 20:29:00 Test Item Value Reference Range Interpretation Comments UA Color (test code = Yellow *NA*(09/13/2012 UA Color) 14:29:00) [facility] NortheastTaovchsQGGJITXXXM5070-07-32 20:29:00 Test Item Value Reference Range Interpretation Comments UA Protein (test code Negative (09/13/2012 N = UA Protein) 14:29:00) [facility] NortheastJhwnyaxFRIMECQJAO6312-93-94 20:29:00 Test Item Value Reference Range Interpretation Comments UA Ketones (test code Negative = UA Ketones) *NA*(09/13/2012 14:29:00) [facility] NortheastWfljyakZZFMJCTBIE9261-84-70 20:29:00 Test Item Value Reference Range Interpretation Comments UA pH (test code = UA pH) 6.0 1 5.0-8.0 N [facility] KingwoodNubikvnMARAXHNXAP1445-00-20 20:29:00 Test Item Value Reference Range Interpretation Comments UA Spec Grav (test code = UA Spec 1.010 1 Grav) [facility] NortheastUirlfqiFTLJDQUKMQ4456-76-58 20:29:00 Test Item Value Reference Range Interpretation Comments UA Turbidity (test code = Clear (09/13/2012 N UA Turbidity) 14:29:00) [facility] NortheastNfvpkzvNEKDNURAEL8462-99-94 20:29:00 Test Item Value Reference Range Interpretation Comments UA Mucus (test code = Few /LPF (09/13/2012 N UA Mucus) 14:29:00) [facility]woodCdxyiioEQYVWQIKKN6388-11-30 20:29:00 Test Item Value Reference Range Interpretation Comments UA WBC (test code = 3 See_Comment [Automa nan message] The UA WBC) system which ge nerated this result transmit nan reference range : <=5. The reference range was not used to interpr et this result as alvarado l/abnormal. [facility]ZztdgweJYFFYLXTOY5452-25-53 20:29:00 Test Item Value Reference Range Interpretation Comments Micro? (test code = Performed (09/13/2012 N Micro?) 14:29:00) [facility] NortheastWvakwjiTZGFPKYXBI8786-83-81 20:29:00 Test Item Value Reference Range Interpretation Comments UA Glucose (test code Negative (09/13/2012 N = UA Glucose) 14:29:00) [facility] NortheastBouqqyuKWNFLNSCAI9703-67-82 20:29:00 Test Item Value Reference Range Interpretation Comments UA Blood (test code = Small *ABN*(09/13/2012 A UA Blood) 14:29:00) [facility] NortheastLozuctxJIUMAZOWQW9333-56-67 20:29:00 Test Item Value Reference Range Interpretation Comments UA Bili (test code = Negative *NA*(09/13/2012 UA Bili) 14:29:00) [facility] NortheastAjngfacXIVKHABICG7147-71-03 20:29:00 Test Item Value Reference Range Interpretation Comments UA Urobilinogen (test code = UA 0.2 0.1-1.0 N Urobilinogen) [facility] NortheastBulgpebEJPZQOOYUP8432-19-54 20:29:00 Test Item Value Reference Range Interpretation Comments UA Nitrite (test code Negative (09/13/2012 N = UA Nitrite) 14:29:00) [facility]woodPsdkptsKBGKEULJZF0861-18-65 20:29:00 Test Item Value Reference Range Interpretation Comments UA Renal Epi (test code = UA Renal Epi) rare [facility] KingwoodLydkobdDPVTOSGLJL6004-15-65 20:29:00 Test Item Value Reference Range Interpretation Comments UA RBC (test 0-2 /HPF See_Comment N [Automated mes melvin] code = UA RBC) (09/13/2012 The system ich 14:29:00) generated this result transmitted ref erence range: <=2. The reference range was not used to int erpret this result as normal/abnormal . [facility]woodMwaycblMRKFUQDWJF2867-09-29 20:29:00 Test Item Value Reference Range Interpretation Comments UA Leuk Est (test Negative (09/13/2012 N code = UA Leuk Est) 14:29:00) [facility]woodUmzebtgWLEPVQBYUP9278-35-79 20:29:00 Test Item Value Reference Range Interpretation Comments UA Color (test code = Yellow *NA*(09/13/2012 UA Color) 14:29:00) [facility] CenterXxbofcqBWPYKEVBGK8795-84-49 20:29:00 Test Item Value Reference Range Interpretation Comments UA Protein (test code Negative (09/13/2012 N = UA Protein) 14:29:00) [facility] CenterSxbqlqsJUHFHXOEOI5170-84-33 20:29:00 Test Item Value Reference Range Interpretation Comments UA Ketones (test code Negative = UA Ketones) *NA*(09/13/2012 14:29:00) [facility] CenterAspmnceOOWCDEXKQV6132-81-24 20:29:00 Test Item Value Reference Range Interpretation Comments UA pH (test code = UA pH) 6.0 1 5.0-8.0 N [facility] CenterTiidlosFXTVFPQPWG9239-65-08 20:29:00 Test Item Value Reference Range Interpretation Comments UA Spec Grav (test code = UA Spec 1.010 1 Grav) [facility] KingwoodDcjjjatLTYJFSMXWY8872-79-28 20:29:00 Test Item Value Reference Range Interpretation Comments UA Turbidity (test code = Clear (09/13/2012 N UA Turbidity) 14:29:00) [facility] CenterIahuwfhDKUDQVBXRP1104-69-89 20:29:00 Test Item Value Reference Range Interpretation Comments UA Renal Epi (test code = UA Renal Epi) rare [facility] CenterYcpmhvlLCWLPDVQXX5716-59-94 20:29:00 Test Item Value Reference Range Interpretation Comments UA RBC (test 0-2 /HPF See_Comment N [Automated mes melvin] code = UA RBC) (09/13/2012 The system [facility] 14:29:00) generated this result transmitted ref erence range: <=2. The reference range was not used to int erpret this result as normal/abnormal . [facility] CenterZrtdiocCYWYCIUBWS5197-42-12 20:29:00 Test Item Value Reference Range Interpretation Comments UA Sq Epi (test code = Few /LPF (09/13/2012 N UA Sq Epi) 14:29:00) [facility] CenterAlldzsrVUFPVRIBK6263-70-38 20:20:00 Test Item Value Reference Range Interpretation Comments Lactic Acid Lvl (test code = Lactic 0.7 0.5-2.2 N Acid Lvl) [facility] CenterOrmavqwINAYNJLSF8244-73-06 20:20:00 Test Item Value Reference Range Interpretation Comments AGAP (test code = AGAP) 14.2 10.0-20.0 N [facility] CenterNbfoerwBWWCNLRDJ4512-71-80 20:20:00 Test Item Value Reference Range Interpretation Comments B/C Ratio (test code = B/C Ratio) 20 6-25 N [facility] CenterVnomvxiRJUOXZVQN2896-28-75 20:20:00 Test Item Value Reference Range Interpretation Comments A/G Ratio (test code = A/G Ratio) 1.4 0.7-1.6 N [facility] CenterTivgewkXJFWJTUSN8368-37-66 20:20:00 Test Item Value Reference Range Interpretation Comments Globulin (test code = Globulin) 3.3 2.0-4.0 N [facility] CenterQrkvabuBIGCLFUGN9920-68-55 20:20:00 Test Item Value Reference Range Interpretation Comments eGFR (test code = eGFR) 100 [facility] CenterOwindgiEJJZPGGLP1996-15-61 20:20:00 Test Item Value Reference Range Interpretation Comments CO2 (test code = CO2) 26 24-32 N [facility] CenterZzywyzrGJEKEZFOO4019-25-82 20:20:00 Test Item Value Reference Range Interpretation Comments Calcium Lvl (test code = Calcium Lvl) 9.7 8.5-10.5 N [facility] CenterNspobqbQFEAQZXEC4185-42-74 20:20:00 Test Item Value Reference Range Interpretation Comments Sodium Lvl (test code = Sodium Lvl) 141 135-145 N [facility] CenterImkuthqKKRTRKHED4101-90-14 20:20:00 Test Item Value Reference Range Interpretation Comments Creatinine Lvl (test code = Creatinine 0.6 0.5-1.4 N Lvl) [facility] CenterFpfblmpGYBPWAFIH2153-57-32 20:20:00 Test Item Value Reference Range Interpretation Comments Chloride Lvl (test code = Chloride Lvl) 105 95-109 N [facility] CenterDjtjjulTHAEVQXFB4072-15-44 20:20:00 Test Item Value Reference Range Interpretation Comments Potassium Lvl (test code = Potassium 4.2 3.5-5.1 N Lvl) [facility] CenterEwhehsrVVEMPRIMY4455-07-29 20:20:00 Test Item Value Reference Range Interpretation Comments BUN (test code = BUN) 12 7-22 N [facility] CenterHnsdyfoPHDHAYTKN1214-76-66 20:20:00 Test Item Value Reference Range Interpretation Comments Glucose Lvl (test code = Glucose Lvl) 109 70-99 H [facility] CenterOdqrztzQLJMGFLSJ5606-29-34 20:20:00 Test Item Value Reference Range Interpretation Comments AST (test code = AST) 19 See_Comment N [Auto mated message] The system which ge nerated this result transmit nan reference range : <=37. The reference range was not used to interpr et this result as alvarado l/abnormal. [facility] CenterEucryhzRRTWNEKTF2010-42-43 20:20:00 Test Item Value Reference Range Interpretation Comments Bili Total (test code = Bili Total) 0.3 0.2-1.3 N [facility] CenterLnlzitwYGETXOFQL5928-67-44 20:20:00 Test Item Value Reference Range Interpretation Comments Alk Phos (test code = Alk Phos) 146 39-136 H [facility] CenterJmxzzjsIHXUYEGJJ7760-55-04 20:20:00 Test Item Value Reference Range Interpretation Comments ALT (test code = ALT) 23 See_Comment N [Auto mated message] The system which ge nerated this result transmit nan reference range : <=65. The reference range was not used to interpr et this result as alvarado l/abnormal. [facility] CenterCggesqxKBGCRHHQD0174-47-11 20:20:00 Test Item Value Reference Range Interpretation Comments Albumin Lvl (test code = Albumin Lvl) 4.7 3.5-5.0 N [facility] CenterKruawwoHJSOIZOXP0722-98-99 20:20:00 Test Item Value Reference Range Interpretation Comments Total Protein (test code = Total 8.0 6.4-8.4 N Protein) [facility] CenterCvkroqzKWREBKNMUY8419-87-30 20:20:00 Test Item Value Reference Range Interpretation Comments RBC Morph (test code = Normal (09/13/2012 N RBC Morph) 14:20:00) [facility] CenterOmmbwuvPDFEKXVVAZ9320-45-34 20:20:00 Test Item Value Reference Range Interpretation Comments Segs (test code = Segs) 74.9 45.0-75.0 N [facility] CenterYanfhoeZUWFMAZRTG1110-93-61 20:20:00 Test Item Value Reference Range Interpretation Comments Monocytes (test code = Monocytes) 4.5 2.0-12.0 N [facility] CenterKoctxaqMGVJRACFDE4587-21-60 20:20:00 Test Item Value Reference Range Interpretation Comments Lymphocytes (test code = Lymphocytes) 17.3 20.0-40.0 L [facility] CenterInyavlbPHZEVSECZA4536-69-17 20:20:00 Test Item Value Reference Range Interpretation Comments Eosinophils (test code = 2.9 See_Comment N [A utomated message] The Eosinophils) system which ge nerated this result tra nsmitted reference range : <=4.0. The reference r dominic was not used to int erpret this result as normal/abnormal . [facility] CenterOacvaekGQDLKDPETB8447-57-50 20:20:00 Test Item Value Reference Range Interpretation Comments Large Plt (test code = Slight *ABN*(09/13/2012 A Large Plt) 14:20:00) [facility] CenterPkobljuGHGCXRQIWB3369-52-90 20:20:00 Test Item Value Reference Range Interpretation Comments Basophils # (test code 0.0 See_Comment N [Aut omated message] The = Basophils #) system which generated this result tra nsmitted reference range : <=0.2. The reference r dominic was not used to int erpret this result as normal/abnormal . [facility] CenterSdfacsyTGRXWEKCLG0220-76-88 20:20:00 Test Item Value Reference Range Interpretation Comments Monocytes # (test code 0.4 See_Comment N [Aut omated message] The = Monocytes #) system which generated this result tra nsmitted reference range : <=0.8. The reference r dominic was not used to int erpret this result as normal/abnormal . [facility] CenterBqheufnYGTVOYDOHI8443-39-29 20:20:00 Test Item Value Reference Range Interpretation Comments Lymphocytes # (test code = Lymphocytes 1.5 1.0-5.5 N #) [facility] CenterExvwfvlURKXHLEQEL1296-67-48 20:20:00 Test Item Value Reference Range Interpretation Comments Segs-Bands # (test code = Segs-Bands #) 6.7 1.5-8.1 N [facility] CenterClpfghxBJMJZNMLXA1756-58-16 20:20:00 Test Item Value Reference Range Interpretation Comments Eosinophils # (test code 0.3 See_Comment N [A utomated message] The = Eosinophils #) system whic h generated this result tra nsmitted reference range : <=0.5. The reference r dominic was not used to int erpret this result as normal/abnormal . [facility] CenterXwruxzkALTZMPWXVM1552-83-80 20:20:00 Test Item Value Reference Range Interpretation Comments Basophils (test code = 0.4 See_Comment N [Aut omated message] The Basophils) system which ge nerated this result tra nsmitted reference range : <=1.0. The reference r dominic was not used to int erpret this result as normal/abnormal . [facility] CenterBxidqqtGIDVDKFPIS2446-30-99 20:20:00 Test Item Value Reference Range Interpretation Comments INR (test code = INR) 0.83 0.85-1.17 L [facility] CenterGytvmrbBJPQDPKTJQ9189-35-28 20:20:00 Test Item Value Reference Range Interpretation Comments PT (test code = PT) 11.6 s 12.0-14.7 L [facility] CenterFnlhvktTAPXHBAPXQ6139-33-07 20:20:00 Test Item Value Reference Range Interpretation Comments PTT (test code = PTT) 31.6 s 22.9-35.8 N [facility] CenterBjwjegbXMICOHDRRQ4667-71-19 20:20:00 Test Item Value Reference Range Interpretation Comments Rapid TEG Sample Type Citrated Whole Blood (test code = Rapid TEG Sample Type) [facility] CenterVzdrwmjHNHADHXUWV0410-04-45 20:20:00 Test Item Value Reference Range Interpretation Comments Angle (test code = Angle) 75 degrees 64-80 N [facility] CenterVvhmymsGLTZSKBNIB8460-31-25 20:20:00 Test Item Value Reference Range Interpretation Comments K-time (test code = K-time) 1.2 min 0.6-2.3 N [facility] CenterTtreqheMNJONYDTJO4292-47-49 20:20:00 Test Item Value Reference Range Interpretation Comments Max Amp (test code = Max Amp) 63 mm 52-71 N [facility] CenterEdbxbxtQMTBJAPNXK8441-62-88 20:20:00 Test Item Value Reference Range Interpretation Comments G-value (test code = G-value) 8.6 5.0-11.6 N [facility] CenterUumqmmgPHUPPFZVUP0639-36-23 20:20:00 Test Item Value Reference Range Interpretation Comments Estimated % Lysis (test 5.6 See_Comment N [Au tomated message] The code = Estimated % system wh ich generated Lysis) this result tra nsmitted reference range : <=7.5. The reference r dominic was not used to int erpret this result as normal/abnormal . [facility] CenterCsjurkyDGKBKLFXRO8690-04-22 20:20:00 Test Item Value Reference Range Interpretation Comments Split Point (test code = Split Point) 0.7 min [facility] CenterWtgcbiiIIVWZWVNNZ0656-31-47 20:20:00 Test Item Value Reference Range Interpretation Comments ACT (TEG) (test code = ACT (TEG)) 128 s 86-118 H [facility] CenterTsctiohDAGGPVMFBM3846-04-41 20:20:00 Test Item Value Reference Range Interpretation Comments R-time (test code = R-time) 0.8 min 0.4-0.7 H [facility] CenterZzbumrbKVTHJDWSXM4440-99-84 20:20:00 Test Item Value Reference Range Interpretation Comments Hgb (test code = Hgb) 14.0 12.0-16.0 N [facility] CenterIkwsvdcFDNMQALXPR6816-65-47 20:20:00 Test Item Value Reference Range Interpretation Comments RBC (test code = RBC) 4.67 4.20-5.40 N [facility] CenterXjtcijqENIOHWPZWC7203-51-71 20:20:00 Test Item Value Reference Range Interpretation Comments WBC (test code = WBC) 8.9 3.7-10.4 N [facility] CenterUftuthgUITFFTGTPW0722-82-88 20:20:00 Test Item Value Reference Range Interpretation Comments RDW (test code = RDW) 12.7 11.5-14.5 N [facility] CenterEbtgsphHHBOTWQYZS0337-23-62 20:20:00 Test Item Value Reference Range Interpretation Comments Platelet (test code = Platelet) 306 133-450 N [facility] CenterNfgrluaTRSHPWIDJM9012-32-94 20:20:00 Test Item Value Reference Range Interpretation Comments MPV (test code = MPV) 8.7 7.4-10.4 N [facility] CenterLbjmvvfRRZBTWMPPY5926-24-65 20:20:00 Test Item Value Reference Range Interpretation Comments MCHC (test code = MCHC) 33.7 32.0-36.0 N [facility] CenterWwjacueTRHBRCYNFI4348-56-83 20:20:00 Test Item Value Reference Range Interpretation Comments MCV (test code = MCV) 88.8 81.0-99.0 N [facility] CenterHfpvvqjUUHSOELDCK3648-29-58 20:20:00 Test Item Value Reference Range Interpretation Comments MCH (test code = MCH) 29.9 pg 27.0-31.0 N [facility] CenterVlfgpmiLBZNPTAIKE6112-49-23 20:20:00 Test Item Value Reference Range Interpretation Comments Hct (test code = Hct) 41.5 36.0-48.0 N [facility] CenterIsbxmxjDOHHDXWOW0016-17-65 20:20:00 Test Item Value Reference Range Interpretation Comments Lactic Acid Lvl (test code = Lactic 0.7 0.5-2.2 N Acid Lvl) [facility] CenterRonyepaNDAEVKRIH0908-63-86 20:20:00 Test Item Value Reference Range Interpretation Comments AGAP (test code = AGAP) 14.2 10.0-20.0 N [facility] CenterCtvrcdsUAHSSWHII8218-44-01 20:20:00 Test Item Value Reference Range Interpretation Comments B/C Ratio (test code = B/C Ratio) 20 6-25 N [facility] CenterYatocbzYIYWZGPAL5843-46-23 20:20:00 Test Item Value Reference Range Interpretation Comments A/G Ratio (test code = A/G Ratio) 1.4 0.7-1.6 N [facility] CenterIyjdawgUYFTCZVYZ5138-14-28 20:20:00 Test Item Value Reference Range Interpretation Comments Globulin (test code = Globulin) 3.3 2.0-4.0 N [facility] CenterQdntfchQQTSZOSCZ4218-93-09 20:20:00 Test Item Value Reference Range Interpretation Comments eGFR (test code = eGFR) 100 [facility] CenterMysnikzNCOHEFTJB0978-67-00 20:20:00 Test Item Value Reference Range Interpretation Comments CO2 (test code = CO2) 26 24-32 N [facility] CenterJzpdqgnNKTBXEPBY8471-28-76 20:20:00 Test Item Value Reference Range Interpretation Comments Calcium Lvl (test code = Calcium Lvl) 9.7 8.5-10.5 N [facility] CenterCajhgkqODAOWUYZG0659-28-04 20:20:00 Test Item Value Reference Range Interpretation Comments Sodium Lvl (test code = Sodium Lvl) 141 135-145 N [facility] CenterPlajvirMLWFKOIOD9697-12-51 20:20:00 Test Item Value Reference Range Interpretation Comments Creatinine Lvl (test code = Creatinine 0.6 0.5-1.4 N Lvl) [facility] CenterGuzaquePLHTOZDCG1389-46-39 20:20:00 Test Item Value Reference Range Interpretation Comments Chloride Lvl (test code = Chloride Lvl) 105 95-109 N [facility] CenterRnyeoxsJRECWDRWV0046-85-92 20:20:00 Test Item Value Reference Range Interpretation Comments Potassium Lvl (test code = Potassium 4.2 3.5-5.1 N Lvl) [facility] CenterVcmibdtVLCYSLLCY6856-54-77 20:20:00 Test Item Value Reference Range Interpretation Comments BUN (test code = BUN) 12 7-22 N [facility] CenterWtvnsnfYULHXJVNI9276-94-87 20:20:00 Test Item Value Reference Range Interpretation Comments Glucose Lvl (test code = Glucose Lvl) 109 70-99 H [facility] CenterLwyebslFIFEUCFZM0379-52-09 20:20:00 Test Item Value Reference Range Interpretation Comments AST (test code = AST) 19 See_Comment N [Auto mated message] The system which ge nerated this result transmit nan reference range : <=37. The reference range was not used to interpr et this result as alvarado l/abnormal. [facility] CenterIzrqorfYTOIEIXMT9249-14-35 20:20:00 Test Item Value Reference Range Interpretation Comments Bili Total (test code = Bili Total) 0.3 0.2-1.3 N [facility] CenterRgrqgbaFIRPRQROW2309-01-74 20:20:00 Test Item Value Reference Range Interpretation Comments Alk Phos (test code = Alk Phos) 146 39-136 H [facility] CenterReepfolNNMHBWIRR0399-70-63 20:20:00 Test Item Value Reference Range Interpretation Comments ALT (test code = ALT) 23 See_Comment N [Auto mated message] The system which ge nerated this result transmit nan reference range : <=65. The reference range was not used to interpr et this result as alvarado l/abnormal. [facility] CenterVmdnuiyRHPWNMTXH6795-16-48 20:20:00 Test Item Value Reference Range Interpretation Comments Albumin Lvl (test code = Albumin Lvl) 4.7 3.5-5.0 N [facility] CenterCkqzrpeCEUPCZUDW3092-66-64 20:20:00 Test Item Value Reference Range Interpretation Comments Total Protein (test code = Total 8.0 6.4-8.4 N Protein) [facility] CenterYrxjqasTIHAZNSFDT8862-04-29 20:20:00 Test Item Value Reference Range Interpretation Comments RBC Morph (test code = Normal (09/13/2012 N RBC Morph) 14:20:00) [facility] CenterAinfxnqYDTDGXIXSP5591-59-83 20:20:00 Test Item Value Reference Range Interpretation Comments Segs (test code = Segs) 74.9 45.0-75.0 N [facility] CenterYnitjyfJPUDXBZCZE8604-73-25 20:20:00 Test Item Value Reference Range Interpretation Comments Monocytes (test code = Monocytes) 4.5 2.0-12.0 N [facility] CenterJevvwtjXWUPAAAMJP9484-15-67 20:20:00 Test Item Value Reference Range Interpretation Comments Lymphocytes (test code = Lymphocytes) 17.3 20.0-40.0 L [facility] CenterAcieiyqHPTPPVMKRL7940-78-72 20:20:00 Test Item Value Reference Range Interpretation Comments Eosinophils (test code = 2.9 See_Comment N [A utomated message] The Eosinophils) system which ge nerated this result tra nsmitted reference range : <=4.0. The reference r dominic was not used to int erpret this result as normal/abnormal . [facility] CenterNwfhdtoUVATMSFTXG6083-46-40 20:20:00 Test Item Value Reference Range Interpretation Comments Large Plt (test code = Slight *ABN*(09/13/2012 A Large Plt) 14:20:00) [facility] CenterJpglwsqPBSXBSTBWU1295-08-01 20:20:00 Test Item Value Reference Range Interpretation Comments Basophils # (test code 0.0 See_Comment N [Aut omated message] The = Basophils #) system which generated this result tra nsmitted reference range : <=0.2. The reference r dominic was not used to int erpret this result as normal/abnormal . [facility]zloypsPAKVXOVOAG1773-25-07 20:20:00 Test Item Value Reference Range Interpretation Comments Monocytes # (test code 0.4 See_Comment N [Aut omated message] The = Monocytes #) system which generated this result tra nsmitted reference range : <=0.8. The reference r dominic was not used to int erpret this result as normal/abnormal . [facility] CenterFhwjllpRIVJVQKGZF4557-33-41 20:20:00 Test Item Value Reference Range Interpretation Comments Lymphocytes # (test code = Lymphocytes 1.5 1.0-5.5 N #) [facility] CenterHvawisoQIKYPFSUBW9907-75-52 20:20:00 Test Item Value Reference Range Interpretation Comments Segs-Bands # (test code = Segs-Bands #) 6.7 1.5-8.1 N [facility] CenterAyehlldQQHYTUSNYN2274-54-82 20:20:00 Test Item Value Reference Range Interpretation Comments Eosinophils # (test code 0.3 See_Comment N [A utomated message] The = Eosinophils #) system whic h generated this result tra nsmitted reference range : <=0.5. The reference r dominic was not used to int erpret this result as normal/abnormal . [facility] CenterRfzphqiWXOOUUVIUM4400-13-31 20:20:00 Test Item Value Reference Range Interpretation Comments Basophils (test code = 0.4 See_Comment N [Aut omated message] The Basophils) system which ge nerated this result tra nsmitted reference range : <=1.0. The reference r dominic was not used to int erpret this result as normal/abnormal . [facility] CenterCdukzlvDXDPOYQMDB0981-47-99 20:20:00 Test Item Value Reference Range Interpretation Comments INR (test code = INR) 0.83 0.85-1.17 L [facility] CenterKbgfhmnUEOHZQORTU4194-30-29 20:20:00 Test Item Value Reference Range Interpretation Comments PT (test code = PT) 11.6 s 12.0-14.7 L [facility] CenterFxeuwfyFEYFZAGPQN6057-56-87 20:20:00 Test Item Value Reference Range Interpretation Comments PTT (test code = PTT) 31.6 s 22.9-35.8 N [facility] CenterQwpvxedJSWPUNJTTG2381-26-45 20:20:00 Test Item Value Reference Range Interpretation Comments Rapid TEG Sample Type Citrated Whole Blood (test code = Rapid TEG Sample Type) [facility] CenterWxzgsmyNARBTXTQYF5330-94-59 20:20:00 Test Item Value Reference Range Interpretation Comments Angle (test code = Angle) 75 degrees 64-80 N [facility] CenterMksghkwWOPQZJZIPP0978-51-81 20:20:00 Test Item Value Reference Range Interpretation Comments K-time (test code = K-time) 1.2 min 0.6-2.3 N [facility] CenterCsqcthuPTJMQRROQJ4152-67-24 20:20:00 Test Item Value Reference Range Interpretation Comments Max Amp (test code = Max Amp) 63 mm 52-71 N [facility] CenterCzdhiuxRGQFAAYEKG3671-34-87 20:20:00 Test Item Value Reference Range Interpretation Comments G-value (test code = G-value) 8.6 5.0-11.6 N [facility] CenterAfxneyaUEYDJZJJVD2308-76-15 20:20:00 Test Item Value Reference Range Interpretation Comments Estimated % Lysis (test 5.6 See_Comment N [Au tomated message] The code = Estimated % system wh ich generated Lysis) this result tra nsmitted reference range : <=7.5. The reference r dominic was not used to int erpret this result as normal/abnormal . [facility] CenterJtqjlddLEGWXBNCRL6431-03-76 20:20:00 Test Item Value Reference Range Interpretation Comments Split Point (test code = Split Point) 0.7 min [facility] CenterCyrmypjVIOFDIQNAB5275-95-87 20:20:00 Test Item Value Reference Range Interpretation Comments ACT (TEG) (test code = ACT (TEG)) 128 s 86-118 H [facility] CenterUxapqxpVAKJWZGDMC0825-59-46 20:20:00 Test Item Value Reference Range Interpretation Comments R-time (test code = R-time) 0.8 min 0.4-0.7 H [facility] CenterNrgwjadRWXTGMPEPS3349-28-63 20:20:00 Test Item Value Reference Range Interpretation Comments Hgb (test code = Hgb) 14.0 12.0-16.0 N [facility] CenterIxcgfgvKTSTUUPFPZ2257-29-87 20:20:00 Test Item Value Reference Range Interpretation Comments RBC (test code = RBC) 4.67 4.20-5.40 N [facility] CenterTsinehhQBLYBAYBRX1739-78-64 20:20:00 Test Item Value Reference Range Interpretation Comments WBC (test code = WBC) 8.9 3.7-10.4 N [facility] CenterCwflyhcMUZFWITSPY5017-30-70 20:20:00 Test Item Value Reference Range Interpretation Comments RDW (test code = RDW) 12.7 11.5-14.5 N [facility] CenterMeubebhWSGMZKHFJV6823-56-82 20:20:00 Test Item Value Reference Range Interpretation Comments Platelet (test code = Platelet) 306 133-450 N [facility] CenterTjniwzuQYZFEYRWEK2842-07-05 20:20:00 Test Item Value Reference Range Interpretation Comments MPV (test code = MPV) 8.7 7.4-10.4 N [facility] CenterOyhfoqjQWWQCIMGEI0023-60-31 20:20:00 Test Item Value Reference Range Interpretation Comments MCHC (test code = MCHC) 33.7 32.0-36.0 N [facility] CenterLbzbakzVXUTLZHAOK7583-68-05 20:20:00 Test Item Value Reference Range Interpretation Comments MCV (test code = MCV) 88.8 81.0-99.0 N [facility] CenterHxnsyvpOIEFZVPAZV8550-84-86 20:20:00 Test Item Value Reference Range Interpretation Comments MCH (test code = MCH) 29.9 pg 27.0-31.0 N [facility] CenterGmnlbiqEZFGTNDCWA8740-41-82 20:20:00 Test Item Value Reference Range Interpretation Comments Hct (test code = Hct) 41.5 36.0-48.0 N [facility]
[2023-05-20 20:29] LABS: Absolute Lymphocytes (CBC) 3.3 K/uL (0.7-4.9); Hematocrit 38.3 % (36.0-45.0); Lymphocytes % 26.3 % (15.3-44.8); MCV 86.1 fL (80-100); MPV 7.9 fL (7.6-11.3); Platelets 308 thou/uL (152-406); RBC Red Blood Cell Count 4.44 M/uL (3.86-4.86)
[2023-05-20] MEDS ORDERED: NITROGLYCERIN 0.4 MG/TAB SL ONE (20:46)
[2023-05-20] MEDS ORDERED: ASPIRIN 81 MG CHEWABLE TABLET ONE (20:46)
[2023-05-20 20:49] LABS: Potassium 3.8 mEq/L (3.5-5.1); Troponin High Sensitivity 3.6 pg/mL (<58.9)
[2023-05-20 20:50] LABS: Protime INR 0.96
--- NOTE | 2023-05-20 20:58 | ER ---
Nurse's Notes [facility] Name: Jackie Azul Age: 72 yrs Sex: Female : 1950 Arrival Date: 05/20/2023 Time: 19:51 Bed 20 Private MD: Diagnosis: Unstable angina;Chest pain, unspecified Presentation: 05/20 19:59 Chief complaint: Patient states: intermittent stabbing left side chest pain of 8 that pf1 radiates to left shoulder with nausea,onset 2 weeks. Patient stated had an abnormal stress test result that was performed at Dr. Mendiola's office. 19:59 Coronavirus screen: Vaccine status: Patient reports being unvaccinated. Client denies pf1 travel out of the [place] in the last 14 days. At this time, the client does not indicate any symptoms associated with coronavirus-19. Ebola Screen: Patient negative for fever greater than or equal to 101.5 degrees Fahrenheit, and additional compatible Ebola Virus Disease symptoms. Initial Sepsis Screen: Does the patient meet any 2 criteria? No. Patient's initial sepsis screen is negative. Does the patient have a suspected source of infection? No. Patient's initial sepsis screen is negative. Risk Assessment: Do you want to hurt yourself or someone else? Patient reports no desire to harm self or others. 19:59 Method Of Arrival: Ambulatory pf1 19:59 Acuity: AYDIN 2 pf1 20:31 Onset of symptoms was May 20, 2023. kd3 Historical: - Allergies: 20:23 No Known Allergies; pf1 - PMHx: 20:23 murmur; pf1 - PSHx: 20:23 section; Tonsillectomy; pf1 - Immunization history:: Adult Immunizations up to date, Client reports having NOT received the Covid vaccine. Last tetanus immunization: < 5 years ago Flu vaccine is not up to date. - Social history:: Smoking status: Patient denies any tobacco usage or history of. Patient uses alcohol, occasionally. Patient/guardian denies using alcohol. - Family history:: not pertinent. - Hospitalizations: : No recent hospitalization is reported. Screenin:30 [facility] ED Fall Risk Assessment (Adult) History of falling in the last 3 months, kd3 including since admission No falls in past 3 months (0 pts) Confusion or Disorientation No (0 pts) Intoxicated or Sedated No (0 pts) Impaired Gait No (0 pts) Mobility Assist Device Used No (0 pt) Altered Elimination No (0 pt) Score/Fall Risk Level 0 - 2 = Low Risk Maintained a safe environment. Abuse screen: Denies threats or abuse. Abuse screen: Denies threats or abuse. Denies injuries from another. Nutritional screening: No deficits noted. Tuberculosis screening: No symptoms or risk factors identified. Assessment: 20:29 General: Appears in no apparent distress. Behavior is calm, cooperative. Pain: Pain kd3 does not radiate. Pain began gradually. Pain: Pain currently is 8 out of 10 on a pain scale. Neuro: Level of Consciousness is awake, alert, obeys commands, Oriented to person, place, time, situation. Cardiovascular: Reports chest pain. Respiratory: Airway is patent Trachea midline Respiratory effort is even, unlabored, Respiratory pattern is regular, symmetrical, Parent/caregiver reports the patient having shortness of breath at rest. 22:31 Reassessment: Patient and/or family updated on plan of care and expected duration. Pain kd3 level reassessed. Patient is alert, oriented x 3, equal unlabored respirations, skin warm/dry/pink. Patient states feeling better. Patient states symptoms have improved. Vital Signs: 19:59 BP 156 / 76; Pulse 80; Resp 16; Temp 98.1; Pulse Ox 100% on R/A; Weight 60.33 kg; pf1 Height 5 ft. 1 in. ; Pain 8/10; 20:28 BP 156 / 76; Pulse 78; Resp 19; Pulse Ox 100% on R/A; kd3 22:01 Weight 61.69 kg; kd3 22:32 BP 144 / 64; Pulse 69; Resp 15; Pulse Ox 96% on R/A; kd3 22:01 Body Mass Index 25.70 (61.69 kg, 154.94 cm) kd3 19:59 Pain Scale: Adult pf1 ED Course: 19:55 Patient arrived in ED. jj6 19:57 Chay Waters MD is Attending Physician. rn 20:23 XRAY Chest (1 view) In Process Unspecified. EDMS 20:23 Triage completed. pf1 20:24 Inserted saline lock: 20 gauge in right antecubital area, using aseptic technique. as6 Blood collected. 20:27 Alee Goodwin CARIDAD is Primary Nurse. kd3 20:27 Troponin HS Sent. kd3 20:27 PT-INR Sent. kd3 20:27 NT PRO-BNP Sent. kd3 20:27 CBC with Diff Sent. kd3 20:27 Basic Metabolic Panel Sent. kd3 20:30 Arm band placed on right wrist. EKG completed in triage. Results shown to MD. kd3 20:30 Patient has correct armband on for positive identification. Provided Education on: kd3 chest pain. Client placed on continuous cardiac and pulse oximetry monitoring. NIBP monitoring applied. hospital intern on. 20:31 No provider procedures requiring assistance completed. Patient maintains SpO2 kd3 saturation greater than 95% on room air. 20:57 Darvin Johnson MD is Hospitalizing Provider. rn 22:36 Inserted saline lock: 22 gauge in left forearm, using aseptic technique. IV kd3 discontinued, intact, bleeding controlled, No redness/swelling at site. Pressure dressing applied. Administered Medications: 20:37 Drug: Aspirin PO Chewable Tablet 324 mg Route: PO; kd3 22:37 Follow up: Response: No adverse reaction kd3 20:40 Drug: Nitroglycerin Sublingual 0.4 mg Route: Sublingual; kd3 22:37 Follow up: Response: No adverse reaction kd3 22:31 Drug: Heparin (AR-Bolus No thrombolytic) - HEParin IVP 60 units/kg {Co-Signature: as6 kd3 (Larry Mata RN).} Route: IVP; Site: left forearm; 22:37 Follow up: Response: No adverse reaction kd3 22:31 Drug: Heparin (AR Drip) - (D5W IV 500 ml, [place] [address] units) 12 units/kg/hr kd3 {Co-Signature: as6 (Larry Mata RN).} Route: IV; Rate: calculated rate; Site: left forearm; Medication: 20:31 VIS not applicable for this client. kd3 Outcome: 20:58 Decision to Hospitalize by Provider. rn 22:36 Admitted to Med/surg kd3 22:36 Condition: stable 22:36 Discharge instructions given to patient. 23:07 Patient left the ED. kd3 Signatures: Dispatcher [employer] EDMS Chay Waters MD MD rn Jeffries, Jennifer jj6 Larry Mata RN RN as6 Alee Goodwin, RN RN kd3 Laurie Alexandra, RN RN pf1 Larry Mata RN as6
--- NOTE | 2023-05-20 20:58 | EDPHYS ---
Physician Documentation [facility] Name: Jackie Azul Age: 72 yrs Sex: Female : 1950 Arrival Date: 05/20/2023 Time: 19:51 Bed 20 Private MD: ED Physician Chay Waters HPI: 05/20 20:42 This 72 yrs old Female presents to ER via Ambulatory with complaints of Chest rn Pain. 20:42 The patient or guardian reports chest pain that is located primarily in the substernal rn area. Onset: 2 week(s) ago. The pain radiates to the left shoulder. The chest pain is described as a heaviness. Duration: The patient or guardian reports multiple episodes, that are intermittent. Modifying factors: The symptoms are alleviated by ASA, rest, the symptoms are aggravated by exertion. Severity of pain: At its worst the pain was moderate in the emergency department the pain has improved. The patient has not experienced similar symptoms in the past. The patient has been recently seen by a physician:. Patient reports intermittent chest pain, worse with exertion over the last 2 weeks, radiation to left shoulder and associated with shortness of breath and nausea. Saw cardiology and had abnormal stress test 2 weeks ago, does not know when heart cath is scheduled. Chest pain is becoming more frequent and lasting longer approximately 20 or 30 minutes now.. Historical: - Allergies: 20:23 No Known Allergies; pf1 - PMHx: 20:23 murmur; pf1 - PSHx: 20:23 section; Tonsillectomy; pf1 - Immunization history:: Adult Immunizations up to date, Client reports having NOT received the Covid vaccine. Last tetanus immunization: < 5 years ago Flu vaccine is not up to date. - Social history:: Smoking status: Patient denies any tobacco usage or history of. Patient uses alcohol, occasionally. Patient/guardian denies using alcohol. - Family history:: not pertinent. - Hospitalizations: : No recent hospitalization is reported. ROS: 20:42 Constitutional: Negative for fever, chills, and weight loss, Cardiovascular: Positive rn for chest pain Respiratory: Positive for shortness of breath Abdomen/GI: Positive for nausea, negative for abdominal pain Back: Negative for injury and pain, MS/Extremity: Negative for injury and deformity, Skin: Negative for injury, rash, and discoloration, Neuro: Negative for headache, weakness, numbness, tingling, and seizure. Exam: 20:42 Constitutional: This is a well developed, well nourished patient who is awake, alert, rn and in no acute distress. Head/Face: Normocephalic, atraumatic. Cardiovascular: Regular rate and rhythm. No pulse deficits. Respiratory: No increased work of breathing, no retractions or nasal flaring. Abdomen/GI: Soft, non-tender Skin: Warm, dry MS/ Extremity: Pulses equal, no cyanosis. Neurovascular intact. Full, normal range of motion. Equal circumference. Neuro: Awake and alert, GCS 15 20:59 ECG was reviewed by the Attending Physician. rn Vital Signs: 19:59 BP 156 / 76; Pulse 80; Resp 16; Temp 98.1; Pulse Ox 100% on R/A; Weight 60.33 kg; pf1 Height 5 ft. 1 in. ; Pain 8/10; 20:28 BP 156 / 76; Pulse 78; Resp 19; Pulse Ox 100% on R/A; kd3 22:01 Weight 61.69 kg; kd3 22:32 BP 144 / 64; Pulse 69; Resp 15; Pulse Ox 96% on R/A; kd3 22:01 Body Mass Index 25.70 (61.69 kg, 154.94 cm) kd3 19:59 Pain Scale: Adult pf1 MDM: 19:57 Patient medically screened. rn 20:56 Differential diagnosis: acute myocardial infarction, acute pericarditis, anxiety, rn coronary artery disease stable angina, unstable angina. HEART Score: History: Highly Suspicious (2), ECG: Normal (0), Age: > or = 65 years (2), Risk Factors: 1 or 2 risk factors (1), Troponin: < or = 1 x Normal Limit (0), Total Score = 5. The patient was given aspirin in the Emergency Department. Data reviewed: vital signs, nurses notes, lab test result(s), EKG, radiologic studies, plain films. Management of patient was discussed with the following: Hospitalist: . Counseling: I had a detailed discussion with the patient and/or guardian regarding the historical points, exam findings, and any diagnostic results supporting the discharge/admit diagnosis, lab results, radiology results, the need for further work-up and treatment in the hospital. Response to treatment: the patient's symptoms have markedly improved after treatment, and as a result, I will admit patient. ED course: Patient's chest pain improved after aspirin and nitroglycerin, still having chest pain. Story sounds like unstable angina will heparinize and admit to hospitalist service.. 05/20 20:12 Order name: Basic Metabolic Panel; Complete Time: 20:51 rn 05/20 20:12 Order name: CBC with Diff; Complete Time: 20:51 rn 05/20 20:12 Order name: NT PRO-BNP; Complete Time: 20:51 rn 05/20 20:12 Order name: PT-INR; Complete Time: 20:51 rn 05/20 20:12 Order name: Troponin HS; Complete Time: 20:51 rn 05/20 20:12 Order name: XRAY Chest (1 view) rn 05/20 20:12 Order name: EKG; Complete Time: 20:13 rn 05/20 20:12 Order name: Cardiac monitoring; Complete Time: 20:24 rn 05/20 20:12 Order name: EKG - Nurse/Tech; Complete Time: 20:24 rn 05/20 20:12 Order name: IV Saline Lock; Complete Time: 20:24 rn 05/20 20:12 Order name: Labs collected and sent; Complete Time: 20:24 rn 05/20 20:12 Order name: O2 Per Protocol; Complete Time: 20:24 rn 05/20 20:12 Order name: O2 Sat Monitoring; Complete Time: 20:24 rn EC:59 Rate is 82 beats/min. Rhythm is regular. QRS [place] is Normal. [place] interval is normal. QRS rn interval is normal. QT interval is normal. No Q waves. T waves are Normal. No ST changes noted. Clinical impression: Normal ECG. Interpreted by me. Reviewed by me. Administered Medications: 20:37 Drug: Aspirin PO Chewable Tablet 324 mg Route: PO; kd3 22:37 Follow up: Response: No adverse reaction kd3 20:40 Drug: Nitroglycerin Sublingual 0.4 mg Route: Sublingual; kd3 22:37 Follow up: Response: No adverse reaction kd3 22:31 Drug: Heparin (CO-Bolus No thrombolytic) - HEParin IVP 60 units/kg {Co-Signature: as6 kd3 (Larry Mata RN).} Route: IVP; Site: left forearm; 22:37 Follow up: Response: No adverse reaction kd3 22:31 Drug: Heparin (CO Drip) - (D5W IV 500 ml, [place] [address] units) 12 units/kg/hr kd3 {Co-Signature: as6 (Larry Mata RN).} Route: IV; Rate: calculated rate; Site: left forearm; Disposition Summary: 05/20/23 20:58 Hospitalization Ordered Hospitalization Status: Inpatient Admission rn Provider: Darvin Johnson rn Location: Telemetry/[facility]Sur (Inpatient) rn Condition: Stable rn Problem: new rn Symptoms: have improved rn Bed/Room Type: Standard rn Room Assignment: 404(05/20/23 21:27) cg Diagnosis - Unstable angina rn - Chest pain, unspecified rn Forms: - Medication Reconciliation Form rn - SBAR form rn - Leadership Thank You Letter rn Signatures: Dispatcher [employer] Chay Hook MD MD rn Garcia, Cindy RN RN Alee Blanchard RN RN kd3 Laurie Alexandra RN RN pf1 Larry Mata RN as6 Corrections: (The following items were deleted from the chart) 21: 20:58 rn cg
--- NOTE | 2023-05-20 21:28 | P.HP ---
Certification for Inpatient Patient admitted to: Inpatient With expected LOS: >2 Midnights Patient will require the following post-hospital care: None Practitioner: I am a practitioner with admitting privileges, knowledge of patient current condition, hospital course, and medical plan of care. Services: Services provided to patient in accordance with Admission requirements found in Title 42 Section 412.3 of the Code of Federal Regulations Patient History Date of Service: 05/20/23 Reason for admission: Unstable angina History of Present Illness: 72-year-old female with no significant past medical history presents emergency department chief complaint of chest pain. She reports that having intermittent chest pain over the course of the last 2 to 3 weeks primarily with exertion usually relieved with rest. She reports that she has stress test approximate 2 weeks ago with cardiology that was reportedly abnormal. Today she had an episode of chest pain that did not seem to be resolved with rest after 15 to 20 minutes and for that reason she came to the emergency department for evaluation. Her initial high-sensitivity troponin was negative EKG without STEMI criteria, ED provider wishes to admit patient for unstable angina. Allergies No Known Allergies Allergy (Verified 05/04/18 07:52) Home Medications: Ascorbate Calcium [Vitamin C] 1 tab PO DAILY 05/04/18 Aspirin [Adult Aspirin] 1 tab PO DAILY 05/04/18 Calcium Carbonate/Vitamin D3 [Calcium 600-Vit D3 800 Caplet] 2 tab PO DAILY 05/04/18 glucosamine HCL [Glucosamine HCl] 1 tab PO TID 05/04/18 - Past Medical/Surgical History -: None -: x3 Psychosocial/ Personal History: Lives at home with her - Family History Family History: Reviewed- Non-Contributory - Social History Smoking Status: Never smoker Alcohol use: No CD- Drugs: No Caffeine use: Yes Place of Residence: Home Review of Systems 10-point ROS is otherwise unremarkable Cardiovascular: Chest Pain Physical Examination - Physical Exam General: Alert, In no apparent distress, Oriented x3 HEENT: Atraumatic, PERRLA, Mucous membr. moist/pink, EOMI, Sclerae nonicteric Neck: Supple, 2+ carotid pulse no bruit, No LAD, Without JVD or thyroid abnormality Respiratory: Clear to auscultation bilaterally, Normal air movement Cardiovascular: Regular rate/rhythm, Normal S1 S2 Gastrointestinal: Normal bowel sounds, No tenderness Musculoskeletal: No tenderness Integumentary: No rashes Neurological: Normal gait, Normal speech, Normal strength at 5/5 x4 extr, Normal tone, Normal affect Lymphatics: No axilla or inguinal lymphadenopathy - Studies Laboratory Data (last 24 hrs) 05/20/23 05/20/23 05/20/23 20:21 20:21 20:21 WBC 12.40 H Hgb 13.4 Hct 38.3 Plt Count 308 PT 10.6 INR 0.96 Sodium 138 Potassium 3.8 BUN 18 Creatinine 0.88 Glucose 98 Assessment and Plan - Plan Assessment: Unstable angina-recent abnormal stress Plan: Unstable angina-recent abnormal stress Continue heparin drip, aspirin, statin. N.p.o. for midnight, cardiology consult. Monitor on telemetry, trend troponins. DVT PPX: Heparin drip Code status: Full code Discharge Plan: Home Plan to discharge in: 48 Hours - Advance Directives Does patient have a Living Will: No Does patient have a Durable POA for Healthcare: No - Code Status/Comfort Care Code Status Assessed: Yes (Full code) Critical Care: No Time Spent Managing Pts Care (In Minutes): 55
[2023-05-20] MEDS ORDERED: HEPARIN 5000 UNIT/ML 1 ML VIAL ONE (22:19)
[2023-05-20] MEDS ORDERED: HEPARIN/D5W 25,000 UNIT/500 ML BAG IV ONE (22:19)
[2023-05-20 23:23] VITALS: BMI 25.9
[2023-05-20] MEDS ORDERED: HEPARIN/D5W 25,000 UNIT/500 ML BAG IV SCH (23:43)
[2023-05-20] MEDS ORDERED: MORPHINE 2 MG/ML SYR IV PRN (23:43)
[2023-05-20] MEDS ORDERED: ONDANSETRON 4 MG/2 ML VIAL IV PRN (23:43)
[2023-05-21 05:30] LABS: Absolute Lymphocytes (CBC) 3.4 K/uL (0.7-4.9); Hematocrit 37.3 % (36.0-45.0); Lymphocytes % 34.7 % (15.3-44.8); MCV 85.3 fL (80-100); MPV 8.2 fL (7.6-11.3); Platelets 278 thou/uL (152-406); RBC Red Blood Cell Count 4.37 M/uL (3.86-4.86)
[2023-05-21 05:46] LABS: Potassium 3.6 mEq/L (3.5-5.1)
[2023-05-21] MEDS ORDERED: ASPIRIN EC 81 MG TAB PO SCH (09:00)
[2023-05-21] MEDS ORDERED: HEPA 1000U/500MLS 2,000 UNIT/1,000 ML BAG IV ONE (16:00)
[2023-05-21] MEDS ORDERED: FENTANYL CITR 100 MCG/2 ML ONE (16:01)
[2023-05-21] MEDS ORDERED: NITROGLYCERIN 100 MCG/ML SYR (for cath lab use only) IV ONE (16:02)
[2023-05-21] MEDS ORDERED: ATROPINE SULF 1 MG/10 ML SYR IV ONE (16:02)
[2023-05-21] MEDS ORDERED: HEPARIN 10,000 UNIT/10 ML VIAL IV ONE (16:02)
[2023-05-21] MEDS ORDERED: MIDAZOLAM HCL 2 MG/2 ML INJ ONE (16:02)
[2023-05-21] MEDS ORDERED: TICAGRELOR 90 MG TABLET PO ONE (16:04)
[2023-05-21] MEDS ORDERED: ASPIRIN 325 MG TAB ONE (16:04)
[2023-05-21] MEDS ORDERED: CLOPIDOGREL 75 MG TABLET ONE (16:04)
[2023-05-21] MEDS ORDERED: NA CHLORIDE 0.9% 500 ML ONE (16:07)
--- NOTE | 2023-05-21 16:33 | EKG ---
Test Date: 2023-05-20 Test Time: 20:06:56 Return Agent Airport: [place] MEASUREMENT RESULTS: Intervals: Rate: 82 W[place]: 170 QRSD: 86 QT: 368 QTc: 429 Mobile: P: 53 W[place]: 170 QRS: 15 T: 28 INTERPRETIVE STATEMENTS: Normal sinus rhythm Normal ECG Compared to ECG 03/15/2009 09:28:37 No significant changes Electronically Signed On 05-21-23 16:31:32 CDT by Derrick Mendiola
[2023-05-21] MEDS ORDERED: FLUMAZENIL 0.1 MG/ML (5 mL VIAL) IV ONE (16:48)
--- NOTE | 2023-05-21 17:09 | P.DS ---
Admission Date: 05/20/23 Discharge Date: 05/21/23 Disposition: ROUTINE DISCHARGE Discharge Condition: GOOD Reason for Admission: Unstable angina Consultations: 1. Cardiology Procedures: - 05/21/2023 - Left Heart Catheterization Hospital Course: DIAGNOSES: # Chest Pain - concern for Unstable Angina HOSPITAL COURSE: Ms. Jackie Azul is a pleasant 72 year old female with no reported past medical history who was admitted to the [facility] on 05/20/2023 for chest pain. She was admitted to the Medicine service. Upon further evaluation, her EKG was without STEMI criteria. Her serial troponin was 3.6 -> 4.4 -> 4.0. Her chest x- ray revealed, "no acute abnormalities displayed." She reported having an abnorm al cardiac stress test about 2 weeks ago. Cardiology was consulted and she was evaluated by Dr. Mendiola. On 05/21/2023, she underwent a left heart catheterization. Dr. Mendiola stated that she had no coronary obstruction. He has cleared her for discharge with outpatient follow-up. On 05/21/2023, she was seen on rounds and deemed medically stable for discharge. She was discharged with instructions to schedule follow-up appointments with her PCP (CANDELARIO Kuhn) and with Cardiology (Dr. Mendiola). She was given the opportunity to ask questions and reported no further questions. Furthermore, all questions were answered to the best of my ability. A copy of this discharge summary will be sent to the above providers to facilitate continuity of care. Today, I personally spent 25 minutes on her case, of which greater than 50% of the time was spent in patient education, counseling, and coordination of care as described above. Vital Signs/Physical Exam: Temp Pulse Resp BP Pulse Ox 98.1 F 71 16 136/65 96 05/21/23 12:00 05/21/23 12:00 05/21/23 12:00 05/21/23 12:00 05/21/23 12:00 General: Alert, In no apparent distress, Oriented x3 HEENT: Atraumatic, Mucous membr. moist/pink, Sclerae nonicteric Neck: JVD not distended Respiratory: Clear to auscultation bilaterally, Normal air movement Cardiovascular: No edema, Regular rate/rhythm, Normal S1 S2, No gallops, No rubs, No murmurs Gastrointestinal: Normal bowel sounds, Soft and benign, Non-distended, No tenderness, No rebound, No guarding Musculoskeletal: No clubbing Integumentary: No rashes Neurological: Normal speech, Normal affect Laboratory Data at Discharge: WBC 9.80 thou/uL (4.3-10.9) 05/21/23 05:02 Hgb 12.9 g/dL (12.0-15.0) 05/21/23 05:02 Hct 37.3 % (36.0-45.0) 05/21/23 05:02 Plt Count 278 thou/uL (152-406) 05/21/23 05:02 PT 10.6 SECONDS (9.5-12.5) 05/20/23 20:21 INR 0.96 05/20/23 20:21 APTT 174.7 SECONDS (24.3-36.9) H* 05/21/23 12:28 Sodium 139 mEq/L (136-145) 05/21/23 05:02 Potassium 3.6 mEq/L (3.5-5.1) 05/21/23 05:02 BUN 16 mg/dL (7-18) 05/21/23 05:02 Creatinine 0.51 mg/dL (0.55-1.02) L 05/21/23 05:02 Glucose 96 mg/dL (74-106) 05/21/23 05:02 Triglycerides 209 mg/dL (<150) H 05/21/23 05:02 Cholesterol 236 mg/dL (<200) H 05/21/23 05:02 HDL Cholesterol 57 mg/dL (40-60) 05/21/23 05:02 Cholesterol/HDL Ratio 4.14 05/21/23 05:02 Home Medications: Ascorbate Calcium [Vitamin C] 2 tab PO DAILY 05/04/18 Aspirin [Adult Aspirin] 1 tab PO DAILY 05/04/18 Calcium Carbonate/Vitamin D3 [Calcium 600-Vit D3 800 Caplet] 2 tab PO DAILY 05/04/18 glucosamine HCL [Glucosamine HCl] 1 tab PO TID 05/04/18 B6/Folic/B12/Coffee/Phosphatid [Neuriva Plus Gummy] 1 tab PO DAILY 05/20/23 Echola-3/Dha/Epa/Fish Oil [Fish Oil 1,000 mg Softgel] 1 each PO DAILY 09/14/23 Physician Discharge Instructions: 1. Please call and schedule a follow-up appointment with your PCP (CANDELARIO Kuhn) in 3-5 days 2. Please call and schedule a follow-up appointment with Cardiology (Dr. Mendiola) in 5-7 days Diet: AHA Activity: Ad myron Followup: Gabriela Kuhn FNP [Primary Care Provider] - Derrick Mendiola MD [ACTIVE - CAN ADMIT] - Time spent managing pt's care (in minutes): 25
--- NOTE | 2023-05-21 17:22 | RAD REPORT ---
EXAM DESCRIPTION: Harley Single View05/21/2023 5:10 pm CLINICAL HISTORY: Chest pain COMPARISON: 2008 FINDINGS: Exam is being submitted to me now for interpretation. The lungs appear clear of acute infiltrate. The heart is normal size IMPRESSION: No acute abnormalities displayed
--- NOTE | 2023-05-21 18:36 | OP ---
Date of Procedure: 05/21/2023 Surgeon: MELANY TURNER Procedures Performed: 1.Selective coronary angiogram. 2.Left heart catheterization. Indication: Unstable angina with abnormal stress test. Access: Right femoral artery 6-Ugandan closed with 6-Ugandan Angio-Seal. Complications: None. Bleeding: Less than 20 mL. Description Of Procedure: After risks, benefits, alternatives were explained, patient agreed to proc edure and signed informal consent. Patient was brought into the cardiac catheterization laboratory, prepped and draped in the usual sterile fashion. Then I accessed right femoral artery using micropun cture kit, ultrasound guidance, and fluoroscopy. I placed 6-Ugandan [place] sheath and took 6-Ugandan JL4 catheter into the aortic root over a J-wire, engaged the left main, took standard views and then I exchanged for 6-Ugandan JR4 catheter into the aortic root over a J-wire, engaged the RCA and took s tandard views and then the catheter was pushed over the wire into the LV, measured the LVEDP and pull back did not record any gradient. Then I removed the catheter and the sheath and placed a 6-Ugandan A ngio-Seal for closure with good hemostasis. Findings: 1.Left main; large and normal. 2.LAD; normal. Normal diagonal branches. 3.Left circumflex; normal. Normal OM branches. 4.RCA; it is dominant with proximal 30%. The rest of the RCA is normal. 5.LVEDP borderline elevated at 18 mmHg. Conclusion: 1.Mild nonobstructive coronary artery disease. 2.Elevated LVEDP. Recommendation: Medical management. /MODL Voice ID: [id number] Report ID: [id number]
[2023-05-21 19:14] VITALS: BP 145/66; TEMP 97.8; O2SAT 95
[2023-05-21] MEDS ORDERED: ATORVASTATIN 40 MG TAB PO SCH (21:00)
--- NOTE | 2023-05-23 16:05 | CON ---
Date of Consultation: 05/21/2023 Reason For Consultation: Chest pain. History Of Present Illness: This is a 72-year-old female with no known medical history, presented to the emergency room with chest pain, retrosternal, pressure like, radiates to the neck and left upper extremity. No nausea or vomiting. No diabetes. No dysuria, polyuria. No fever. No other complai nts. Past Medical History: None. Medications: None. Past Surgical History: . Allergies: NO KNOWN DRUG ALLERGIES. Family History: No premature coronary artery disease or cancer. Social History: She does not smoke or drink. Does not use drugs. Review of Systems: All systems reviewed and they were negative except what mentioned in HPI. Physical Examination: Vital Signs: Reviewed. Head and Neck: Pupils are equal, reactive to light. Intact eye movements. No JVD. No cervical lym phadenopathy. Neck is supple. Thyroid is not enlarged. Lungs: Clear to auscultation bilaterally. No rhonchi, wheezing, or crackles. No accessory muscle u se. Heart: Regular rate and rhythm. No extra sounds. Abdomen: Soft, nontender. Bowel sounds positive. No organomegaly. No masses or hernia. No rigidi ty or rebound. Extremities: No edema, clubbing, or cyanosis. Intact pulses. Skin: No rash. Neurologic: Alert, awake, oriented x3. No acute focal deficits appreciated. Investigations: Troponins x3 are negative and LDL is 137. Assessment And Recommendations: 1.Chest pain, atypical. Negative troponin suggestive of unstable angina. She is n.p.o., plan for c oronary angiogram today. 2.Dyslipidemia. Recommend start Lipitor 40 mg at bedtime. SR/MODL Voice ID: [id number] Report ID: [id number]
--- NOTE | 2023-05-24 07:33 | ECHO ---
HEIGHT: 5 ft 1 in WEIGHT: 137 lb 0 oz DATE OF STUDY: 05/21/[address]: Dwight Reyes NP 2-DIMENSIONAL: YES M.MODE: YES DOPPLER: YES COLOR FLOW: YES TDS: PORTABLE: YES DEFINITY: BUBBLE STUDY: DIAGNOSIS: UNSTABLE ANGINA CARDIAC HISTORY: CATHERIZATION: SURGERY: PROSTHETIC VALVE: PACEMAKER: MEASUREMENTS (cm) DIASTOLIC (NORMALS) SYSTOLIC (NORMALS) IVSd 0.8 (0.6-1.2) LA Diam 2.9 (1.9-4.0) LVEF 60% LVIDd 4.0 (3.5-5.7) LVIDs 2.7 (2.0-3.5) %FS 32% LVPWd 0.9 (0.6-1.2) Ao Diam 2.3 (2.0-3.7) 2 DIMENSIONAL ASSESSMENT: RIGHT ATRIUM: NORMAL LEFT ATRIUM: NORMAL RIGHT VENTRICLE: NORMAL LEFT VENTRICLE: NORMAL TRICUSPID VALVE: MILD TRICUSPID REGURGITATION MITRAL VALVE: MILD MITRAL REGURGITATION PULMONIC VALVE: MILD PULMONIC INSUFFICIENCY AORTIC VALVE: MILD AORTIC INSUFFICIENCY PERICARDIAL EFFUSION: NONE AORTIC ROOT: NORMAL LEFT VENTRICULAR WALL MOTION: NORMAL DOPPLER/COLOR FLOW: SEE BELOW COMMENTS: 1. NORMAL LEFT VENTRICULAR EJECTION FRACTION 55-60% WITH NORMAL WALL MOTION 2. GRADE I DIASTOLIC DYSFUNCTION 3. MILD MITRAL REGURGITATION, TRICUSPID REGURGITATION, PULMONIC INSUFFICIENCY, 4. AORTIC INSUFFICIENCY TECHNOLOGIST: LALITA CARRENO
== END 2023-05-21 19:45 | disposition home or self-care (01) | DRG 287 ==
LOC: ER 19:51 → 4TH 21:13
PROVIDERS: ADMIT Internal Medicine; ATTEND Internal Medicine
PROC: 4A023N7 Measurement of Cardiac Sampling and Pressure, Left Heart, Percutaneous Approach (ICD-10-PCS; principal; 2023-05-21)
PROC: B2111ZZ Fluoroscopy of Multiple Coronary Arteries using Low Osmolar Contrast (ICD-10-PCS; 2023-05-21)
DX: I25.110 Atherosclerotic heart disease of native coronary artery with unstable angina pectoris (principal); E78.5 Hyperlipidemia, unspecified; Z79.82 Long term (current) use of aspirin; Z79.899 Other long term (current) drug therapy; Z28.310 Unvaccinated for COVID-19
CPT/HCPCS: 36415; 71045; 76937; 80048; 80061; 83880; 84484; 85025; 85610; 85730; 93005; 93306; 93458; 96374; 99285; C1760; C1893; G0269; J0461; J1644; J2250; J2270; J3010; J7040; Q9966

== ENCOUNTER 2024-04-12 09:25 | Day surgery (SDC) | payer OTHER ==
--- NOTE | 2024-04-10 14:54 | RAD REPORT ---
EXAM DESCRIPTION: Harley Munguia And Rodrigo (2 Views)04/10/2024 2:26 pm CLINICAL HISTORY: Preop for cholecystectomy COMPARISON: 2022 FINDINGS: The lungs appear clear of acute infiltrate. The heart is normal size IMPRESSION: No acute abnormalities displayed
[2024-04-10 14:55] LABS: Absolute Eosinophils 0.2 K/uL (0-0.5); Absolute Lymphocytes (CBC) 2.3 K/uL (0.7-4.9); Absolute Monocytes 0.8 K/uL (0.1-1.3); Absolute Neutrophil 5.6 K/uL (1.8-8.0); Basophils % 0.5 % (0-1.3); Eosinophils % 2.6 % (0-4.4); Hematocrit 37.3 % (36.0-45.0); Hemoglobin 12.2 g/dL (12.0-15.0); Lymphocytes % 25.9 % (15.3-44.8); MCH 28.8 pg (27.0-35.0); MCHC 32.9 g/dL (32.0-36.0); MCV 87.7 fL (80-100); MPV 8.4 fL (7.6-11.3); Monocytes % 8.6 % (3.3-12.3); Neutrophils % 62.4 % (41.7-73.7); Platelets 339 thou/uL (152-406); RBC Red Blood Cell Count 4.25 M/uL (3.86-4.86); Red Cell Distribution Width 14.5 % (12.1-15.2)
[2024-04-10 14:58] LABS: ALT/SGPT 24 U/L (13-56); AST/SGOT 11 U/L (15-37); Albumin 3.6 g/dL (3.4-5.0); Alkaline Phosphatase 117 U/L (45-117); Anion Gap 4.2 mEq/L (5.0-15.0); BUN Blood Urea Nitrogen 13 mg/dL (7-18); Bicarbonate 32 mEq/L (21-32); Bilirubin Total 0.2 mg/dL (0.2-1.0); Globulin 3.6 g/dL (2.3-3.5); Glomerular Filtration Rate 97 ml/min (=/>90); Glucose Level 115 mg/dL (74-106); Lipase 26 U/L (13-75); Potassium 4.2 mEq/L (3.5-5.1); Protein, Total 7.2 g/dL (6.4-8.2); Sodium Level 140 mEq/L (136-145)
[2024-04-10 14:59] LABS: Bilirubin Direct < 0.2 mg/dL (0-0.2)
--- NOTE | 2024-04-11 17:07 | EKG ---
Test Date: 2024-04-10 Test Time: 14:13:43 Laborer/Grade Check: PREO MEASUREMENT RESULTS: Intervals: Rate: 79 NE: 174 QRSD: 90 QT: 384 QTc: 440 [place]: P: 68 NE: 174 QRS: 33 T: 42 INTERPRETIVE STATEMENTS: Normal sinus rhythm Normal ECG Compared to ECG 05/20/2023 20:06:56 No significant changes Electronically Signed On 04-11-24 17:04:47 CDT by Derrick Mendiola
[2024-04-12] MEDS: Ringers Lactate 1,000 ML IV ONE (09:40)
[2024-04-12] MEDS ORDERED: ONDANSETRON 4 MG/2 ML VIAL ONE (10:20)
[2024-04-12] MEDS ORDERED: FENTANYL CITR 100 MCG/2 ML ONE (10:20)
[2024-04-12] MEDS ORDERED: propofoL 200 MG/20 ML VIAL IV ONE (10:20)
[2024-04-12] MEDS ORDERED: LIDOCAINE 2% MPF 5 ML VIAL ONE (10:20)
[2024-04-12] MEDS ORDERED: ROCURONIUM 50 MG/5 ML VIAL IV ONE (10:21)
[2024-04-12] MEDS ORDERED: SUCCINYLCHOLINE 20 MG/ML (10 ML) IV ONE (10:24)
[2024-04-12] MEDS ORDERED: SUGAMMADEX SODIUM 200 MG/2 ML VIAL IV ONE (10:24)
[2024-04-12] MEDS: CEFAZOLIN SODIUM 1 GM/VIAL ONE (10:32)
[2024-04-12] MEDS: CEFOXITIN SODIUM 1 GM/VIAL ONE (11:19)
[2024-04-12] MEDS ORDERED: dexAMETHasone 10 MG/ML VIAL ONE (11:19)
[2024-04-12] MEDS ORDERED: EPHEDRINE SULF 50 MG/ML VIAL ONE (11:25)
--- NOTE | 2024-04-12 11:59 | P.BOP ---
Preoperative diagnosis: acute cholecystitis, symptomatic cholelithiasis, RUQ abd pain Postoperative diagnosis: same Primary procedure: Laparoscopic cholecystectomy Estimated blood loss: <10cc Specimen: gb Findings: as above Anesthesia: General Complications: None Transferred to: Recovery Room Condition: Good
[2024-04-12 13:24] VITALS: BP 141/68; TEMP 97; O2SAT 98
--- NOTE | 2024-04-12 17:08 | OP ---
Date of Procedure: 04/12/2024 Surgeon: Steven Hu MD Preoperative Diagnoses: Acute cholecystitis, symptomatic cholelithiasis, right upper quadrant abdomi nal pain. Postoperative Diagnoses: Acute cholecystitis, symptomatic cholelithiasis, right upper quadrant abdom inal pain. Procedure: Laparoscopic cholecystectomy. Estimated Blood Loss: Less than 10 cc. Specimen: Gallbladder. Anesthesia: General plus local. Findings: As above. Complications: None. Indication: This is a case of a 73-year-old patient, came to us with above diagnoses. Fully explain ed the benefits, alternatives, and risks of laparoscopic possible open cholecystectomy, which include , but not limited to, infection, bleeding, damage to adjacent structures, anesthesia complication, ch oledocholithiasis, bile leak, pancreatitis, OH, and even . She also understands this may not re lieve any symptoms. She might need more than one surgical intervention. She understood, signed a co nsent. Description Of Procedure: Patient was brought to the operating room, placed in supine position. Ane sthesia was done without complication. Abdominal area was prepped and draped in a sterile fashion. Local anesthesia was applied. We selected to be supraumbilical since she has an infraumbilical incis ion midline. So, a supraumbilical incision was made. Incision was carried down to fascia, which was opened under direct vision. Peritoneum was encountered, opened under direct vision. Vicryl #1 plac ed inside the fascia. Mindy trocar was carefully introduced. Pneumoperitoneum was obtained. I alexis trisha 3 more trocars, 5 mm each one of them, 1 in epigastric area, 2 in the right upper quadrant using same technique which consisted of local anesthetic, sharp incision of the skin, introduction of the t rocars under direct vision. This allowed me to put a grasper in the fundus of the gallbladder, anoth er grasper in the infundibulum and retracting the gallbladder in the inferolateral fashion exposing t he triangle of Calot, obtaining critical view. Cystic duct and cystic artery were clearly isolated f ree circumferentially and a connection between those and the gallbladder were clearly identified. I proceeded to ligate those by using at least 3 clips proximal, 1 clip distal, ligation in the middle. Same was done with the cystic artery. A small little branch of the cystic artery was also ligated u sing the same technique. Hepatic arteries and common bile duct were protected at all times. At that moment, I proceeded to remove the gallbladder from the liver using Bovie cauterizer and removed from abdominal cavity using EndoCatch through the umbilical incision. Area was inspected once again. No bile leak. No bleeding. At that moment, I proceeded to remove the trocars under direct vision, def lated pneumoperitoneum, closing the fascia with #1 Vicryl, irrigated subcutaneous tissue, closed that with 3-0 chromic and the skin with 3-0 chromic and a subcuticular closure and Steri-Strips on top. Sponge counts and instrument counts were correct. Patient tolerated the procedure well. Patient sen t to recovery in stable condition. FELIPE/BAM Voice ID: [id number] Report ID: [id number]
--- NOTE | 2024-04-12 17:14 | DS ---
Date of Discharge: 04/12/2024 Diagnoses: Acute cholecystitis, symptomatic cholelithiasis, right upper quadrant abdominal pain. Procedure: Laparoscopic cholecystectomy. Condition: Stable. Disposition: Home. Activity: As tolerated. No heavy lifting. Discharge Instructions: Follow up in my office in 1 week. Call for appointment at [phone]. Keep a oscar dry for 48 hours, then may shower. Keep Steri-Strips intact. FELIPE/BAM Voice ID: [id number] Report ID: [id number]
== END 2024-04-12 13:32 | disposition home or self-care (01) ==
LOC: OR 09:25
PROVIDERS: ATTEND Surgery
PROC: 0FT44ZZ Resection of Gallbladder, Percutaneous Endoscopic Approach (ICD-10-PCS; principal; 2024-04-12 11:15)
DX: K80.10 Calculus of gallbladder with chronic cholecystitis without obstruction (principal); M81.0 Age-related osteoporosis without current pathological fracture; M06.9 Rheumatoid arthritis, unspecified
CPT/HCPCS: 93005; 85025; 80048; 36415; 80076; 88304; 83690; 71046; 47562; J2704; J2001; J3010; J1100; J0694; J2405; J7120; J0690

== ENCOUNTER 2024-10-20 11:13 | Emergency (ER) | payer OTHER ==
--- NOTE | 2024-10-20 12:02 | RAD REPORT ---
EXAMINATION: ONE VIEW CHEST XR CLINICAL INDICATION: Female, 73 years old.,CHEST PAIN TECHNIQUE: Frontal chest projection is submitted. Examination is limited by patient positioning and t echnique. COMPARISON: 04/10/2024 FINDINGS: The lungs are well inflated and clear. No pneumothorax or sizable effusion. The heart is normal in s ize. Mediastinal contours are unremarkable. IMPRESSION: No acute intrathoracic abnormalities.
[2024-10-20 12:08] LABS: Absolute Basophils 0.1 K/uL (0-0.5); Absolute Eosinophils 0.3 K/uL (0-0.5); Absolute Lymphocytes (CBC) 2.4 K/uL (0.7-4.9); Absolute Monocytes 0.7 K/uL (0.1-1.3); Basophils % 0.7 % (0-1.3); Eosinophils % 3.6 % (0-4.4); Hematocrit 37.7 % (36.0-45.0); Hemoglobin 12.7 g/dL (12.0-15.0); Lymphocytes % 28.7 % (15.3-44.8); MCH 28.9 pg (27.0-35.0); MCHC 33.7 g/dL (32.0-36.0); MCV 85.6 fL (80-100); MPV 7.8 fL (7.6-11.3); Monocytes % 7.7 % (3.3-12.3); Neutrophils % 59.3 % (41.7-73.7); PT Prothrombin Time 11.5 SECONDS (9.4-12.5); Platelets 342 thou/uL (152-406); Protime INR 1.1; Red Cell Distribution Width 14.3 % (12.1-15.2)
[2024-10-20] MEDS ORDERED: METOCLOPRAMIDE 10 MG/2mL INJ ONE (12:13)
[2024-10-20] MEDS ORDERED: DIPHENHYDRAMINE 50 MG/ML VIAL ONE (12:13)
[2024-10-20] MEDS ORDERED: NA CHLORIDE 0.9% 500 ML ONE (12:13)
[2024-10-20 12:16] LABS: Anion Gap 6.5 mEq/L (5.0-15.0); BUN Blood Urea Nitrogen 15 mg/dL (7-18); Bicarbonate 29 mEq/L (21-32); Glomerular Filtration Rate 100 ml/min (=/>90); Glucose Level 101 mg/dL (74-106); NT PRO-BNP 69 pg/mL (<125); Potassium 3.5 mEq/L (3.5-5.1); Sodium Level 139 mEq/L (136-145)
[2024-10-20 12:27] LABS: Troponin High Sensitivity < 3.0 pg/mL (<58.9)
--- NOTE | 2024-10-20 12:48 | EDPHYS ---
Physician Documentation [facility] Name: Jackie Azul Age: 73 yrs Sex: Female : 1950 Arrival Date: 10/20/2024 Time: 11:13 Bed 2 Private MD: ED Physician Dani De Jesus HPI: 10/20 12:06 This 73 yrs old Female presents to ER via Ambulatory with complaints of Chest ec2 Pain. 12:06 Patient arrives today for evaluation of chest pain and dizziness. Patient describes the ec2 dizziness as lightheadedness that has been occurring when she goes from sitting to standing position. Reports occasional chest pain which she describes as exertional. Patient reports no significant medical problems. Reports that she follows with Dr. Mendiola, supposed to have outpatient catheterization.. Historical: - Allergies: 11:39 No Known Allergies; ss - Home Meds: 11:39 None [Active]; ss - PMHx: 11:39 murmur; ss - PSHx: 11:39 section; Tonsillectomy; Cholecystectomy; ss - Immunization history:: Adult Immunizations up to date. - Infectious Disease History:: Denies. - Social history:: Smoking status: Patient denies any tobacco usage or history of. ROS: 12:07 Constitutional: as per hpi ec2 Exam: 12:07 Constitutional: GEN: NAD Head: atraumatic Eyes: EOMI Ears: External ears are ec2 normal. CV: regular rate LUNGS: no respiratory distress ABD: non-distended SKIN: no evidence of rashes MSK: no evidence of trauma Vital Signs: 11:38 BP 149 / 77; Pulse 77; Resp 17; Temp 98.6(TE); Pulse Ox 100% on R/A; Weight 61.23 kg; ss Height 5 ft. 2 in. ; Pain 8/10; 12:29 BP 143 / 73; Pulse 79; Resp 12; Pulse Ox 93% on R/A; ld1 13:07 BP 146 / 71; Pulse 81; Resp 18; Pulse Ox 100% on R/A; ld1 11:38 Body Mass Index 24.69 (61.23 kg, 157.48 cm) ss 11:38 Pain Scale: Adult ss MDM: 11:18 Medical Screening Exam initiated ec2 11:53 ED course: EKG independently reviewed and interpreted by me, shows normal sinus rhythm, ec2 rate of 73, no acute ST segment elevations, intervals are nonactionable.. 12:07 Data reviewed: vital signs, nurses notes. ED course: Patient arrives today for chest ec2 pain and lightheadedness. Examination is unrevealing. Will obtain lab work. EKG as above. Differential includes electrolyte disturbances, anemia, dehydration, ACS.. 12:37 HEART Score: History: Highly Suspicious (2), ECG: Normal (0), Age: > or = 65 years (2), ec2 Risk Factors: No Risk Factors Known (0), Troponin: < or = 1 x Normal Limit (0), Total Score = 4. 12:47 ED course: On reassessment patient is well-appearing and in no acute distress. I ec2 discussed the results and discuss possible inpatient hospitalization given medium risk heart score, patient elected to return to home. Will discharge home and have the patient follow-up with cardiology.. 10/20 11:18 Order name: Basic Metabolic Panel; Complete Time: 12:33 ec2 10/20 11:18 Order name: CBC with Diff; Complete Time: 12:15 ec2 10/20 11:18 Order name: NT PRO-BNP; Complete Time: 12:33 ec2 10/20 11:18 Order name: PT-INR; Complete Time: 12:15 ec2 10/20 11:18 Order name: Troponin HS; Complete Time: 12:33 ec2 10/20 11:18 Order name: XRAY Chest (1 view); Complete Time: 12:15 ec2 10/20 11:18 Order name: Cardiac monitoring; Complete Time: 11:38 ec2 10/20 11:18 Order name: EKG - Nurse/Tech; Complete Time: 11:45 ec2 10/20 11:18 Order name: IV Saline Lock; Complete Time: 12:28 ec2 10/20 11:18 Order name: Labs collected and sent; Complete Time: 11:44 ec2 10/20 11:18 Order name: O2 Per Protocol; Complete Time: 11:38 ec2 10/20 11:18 Order name: O2 Sat Monitoring; Complete Time: 11:38 ec2 Administered Medications: 12:28 Drug: metoCLOPramide IVP 10 mg IVP once; over 1 to 2 minutes Route: IVP; Site: right ld1 wrist; 12:28 Drug: diphenhydrAMINE IVP 25 mg IVP once Route: IVP; Site: right wrist; ld1 12:28 Drug: NS 0.9% IV 500 ml 500 ml IV at 1 bolus once; to be given as a bolus over 30 ld1 minutes Volume: 500 ml; Route: IV; Rate: 1 bolus; Site: right wrist; Disposition Summary: 10/20/24 12:48 Discharge Ordered Notes: Location: Home ec2 Condition: Stable ec2 Diagnosis - Chest pain, unspecified ec2 - Headache ec2 Followup: ec2 - With: Private Physician - When: - Reason: Re-evaluation by your physician Discharge Instructions: - Discharge Summary Sheet ec2 - Nonspecific Chest Pain, Adult, [id number] ec2 Forms: - Medication Reconciliation Form ec2 - Antibiotic Education ec2 - Prescription Opioid Use ec2 - Patient Portal Instructions ec2 - Leadership Thank You Letter ec2 Prescriptions: - Compazine 10 mg Oral Tablet - take 1 tablet ORAL route every 8 hours As needed; 20 tablet; Refills: 0, ec2 Product Selection Permitted Signatures: Dispatcher [employer] EDMO Sobeida Kowalski RN RN ss Sims, Lauren, RN RN ld1 Dani De Jesus MD MD ec2 Corrections: (The following items were deleted from the chart) 11:19 11:19 BASIC METABOLIC PANEL+C.LAB.BRZ ordered. EDMO EDMS 11:19 11:19 CBC+H.LAB.BRZ ordered. EDMO EDMS 11:19 11:19 PROBNP+C.LAB.BRZ ordered. EDMO EDMS 11:19 11:19 PROTIME (+INR)+COAG.LAB.BRZ ordered. EDMO EDMS 11:19 11:19 Troponin High Sensitivity+C.LAB.BRZ ordered. EDMO EDMS 11:19 11:19 Chest Single View+RAD.RAD.BRZ ordered. EDMO EDMS 12:38 12:06 Patient arrives today for evaluation of chest pain and dizziness. Patient ec2 describes the dizziness as lightheadedness that has been occurring when she goes from sitting to standing position. Reports occasional chest pain. Patient reports no significant medical problems. Reports that she follows with Dr. Mendiola, supposed to have outpatient catheterization.. ec2
--- NOTE | 2024-10-20 12:48 | ER ---
Nurse's Notes [facility] Name: Jackie Azul Age: 73 yrs Sex: Female : 1950 Arrival Date: 10/20/2024 Time: 11:13 Bed 2 Private MD: Diagnosis: Chest pain, unspecified;Headache Presentation: 10/20 11:38 Chief complaint: Patient states: dizziness, nausea and chest discomfort that began ss yesterday. Pt also reports she fell from a standing position yesterday after these symptoms began. Coronavirus screen: Client denies travel out of the [place] in the last 14 days. Ebola Screen: Patient denies exposure to infectious person. Patient denies travel to an Ebola-affected area in the 21 days before illness onset. Initial Sepsis Screen: Does the patient meet any 2 criteria? No. Patient's initial sepsis screen is negative. Does the patient have a suspected source of infection? No. Patient's initial sepsis screen is negative. Risk Assessment: Do you want to hurt yourself or someone else? Patient reports no desire to harm self or others. Onset of symptoms was October 19, 2024. 11:38 Method Of Arrival: Ambulatory ss 11:38 Acuity: AYDIN 3 ss Historical: - Allergies: 11:39 No Known Allergies; ss - Home Meds: 11:39 None [Active]; ss - PMHx: 11:39 murmur; ss - PSHx: 11:39 section; Tonsillectomy; Cholecystectomy; ss - Immunization history:: Adult Immunizations up to date. - Infectious Disease History:: Denies. - Social history:: Smoking status: Patient denies any tobacco usage or history of. Screenin:29 [facility] ED Fall Risk Assessment (Adult) History of falling in the last 3 months, ld1 including since admission No falls in past 3 months (0 pts) Confusion or Disorientation No (0 pts) Intoxicated or Sedated No (0 pts) Impaired Gait No (0 pts) Mobility Assist Device Used No (0 pt) Altered Elimination No (0 pt) Score/Fall Risk Level 0 - 2 = Low Risk Oriented to surroundings, Hourly rounding (assess needs \T\ fall precautionary measures) done. Abuse screen: Denies threats or abuse. Denies injuries from another. Nutritional screening: No deficits noted. Tuberculosis screening: No symptoms or risk factors identified. Assessment: 12:29 General: Appears in no apparent distress. comfortable, Behavior is calm, cooperative, ld1 appropriate for age. Pain: Denies pain. Pain does not radiate. Pain began n/a. Neuro: Level of Consciousness is awake, alert, obeys commands, Oriented to person, place, time, situation. Neuro: Reports headache since this morning. Cardiovascular: Capillary refill < 3 seconds Patient's skin is warm and dry. Cardiovascular: Rhythm is sinus rhythm. Respiratory: Airway is patent Respiratory effort is even, unlabored. GI: Abdomen is flat, non-distended. : No signs and/or symptoms were reported regarding the genitourinary system. EENT: No signs and/or symptoms were reported regarding the EENT system. Derm: No signs and/or symptoms reported regarding the dermatologic system. Musculoskeletal: No signs and/or symptoms reported regarding the musculoskeletal system. 13:07 Reassessment: Patient appears in no apparent distress at this time. No changes from ld1 previously documented assessment. Patient and/or family updated on plan of care and expected duration. Pain level reassessed. Patient is alert, oriented x 3, equal unlabored respirations, skin warm/dry/pink. Patient states feeling better. Patient states symptoms have improved. Vital Signs: 11:38 BP 149 / 77; Pulse 77; Resp 17; Temp 98.6(TE); Pulse Ox 100% on R/A; Weight 61.23 kg; ss Height 5 ft. 2 in. ; Pain 8/10; 12:29 BP 143 / 73; Pulse 79; Resp 12; Pulse Ox 93% on R/A; ld1 13:07 BP 146 / 71; Pulse 81; Resp 18; Pulse Ox 100% on R/A; ld1 11:38 Body Mass Index 24.69 (61.23 kg, 157.48 cm) ss 11:38 Pain Scale: Adult ss ED Course: 11:15 Patient arrived in ED. mr 11:16 Dani De Jesus MD is Attending Physician. ec2 11:37 Janet Harvey, CARIDAD is Primary Nurse. ld1 11:39 Triage completed. ss 11:39 Arm band placed on right wrist. ss 11:46 XRAY Chest (1 view) In Process Unspecified. EDMS 11:53 EKG done, by ED staff, reviewed by Dani De Jesus MD. em1 12:29 Patient has correct armband on for positive identification. Placed in gown. Bed in low ld1 position. Call light in reach. Side rails up X2. surveying teacher on. Pulse ox on. NIBP on. Door closed. Noise minimized. Warm blanket given. 12:29 No provider procedures requiring assistance completed. Inserted saline lock: 22 gauge ld1 in right wrist, using aseptic technique. Blood collected. Flushed with 10 mL NS. Patient maintains SpO2 saturation greater than 95% on room air. 13:08 IV discontinued, intact, bleeding controlled, No redness/swelling at site. ld1 Administered Medications: 12:28 Drug: metoCLOPramide IVP 10 mg IVP once; over 1 to 2 minutes Route: IVP; Site: right ld1 wrist; 12:28 Drug: diphenhydrAMINE IVP 25 mg IVP once Route: IVP; Site: right wrist; ld1 12:28 Drug: NS 0.9% IV 500 ml 500 ml IV at 1 bolus once; to be given as a bolus over 30 ld1 minutes Volume: 500 ml; Route: IV; Rate: 1 bolus; Site: right wrist; Medication: 12:29 VIS not applicable for this client. ld1 Outcome: 12:48 Discharge ordered by . ec2 13:08 Discharged to home ambulatory, ld1 13:08 Condition: stable 13:08 Discharge instructions given to patient, Instructed on discharge instructions, follow up and referral plans. Demonstrated understanding of instructions, follow-up care, medications, Prescriptions given X 1, 13:08 Patient left the ED. ld1 Signatures: Dispatcher [employer] EDVT RobbinsWindy, Reg Reg Ugo Wiley em1 Sobeida Kowalski, RN RN Janet Castaneda RN RN ld1 Dani De Jesus MD MD ec2
[2024-10-20 13:15] VITALS: TEMP 98.6
[2024-10-20 13:18] VITALS: BP 146/71; O2SAT 100
== END 2024-10-20 13:08 | disposition home or self-care (01) ==
LOC: ER 11:13
DX: R07.9 Chest pain, unspecified (principal); R51.9 Headache, unspecified
CPT/HCPCS: 85025; 80048; 36415; 85610; 84484; 83880; 71045; 96375; 96374; 99285; J2765; J1200; J7040; 93005